=== PATIENT | female | born 1945 | race Caucasian/White ===

== ENCOUNTER 2017-12-31 23:06 | Inpatient (IN) | payer OTHER ==
[2017-12-31] MEDS ORDERED: PROPOFOL/EMULSION 1,000 MG/100 ML BOTTLE IV ONE (23:11)
[2017-12-31] MEDS ORDERED: fentaNYL 100 MCG/2 ML INJ ONE (23:17)
[2017-12-31 23:19] LABS: PLATELET COUNT 265 10^3/uL (150-400)
[2017-12-31] MEDS ORDERED: fentaNYL 100 MCG/2 ML INJ IVP ONE (23:19)
[2017-12-31] MEDS ORDERED: NS 1,000 ML IV ONE (23:20)
--- NOTE | 2017-12-31 23:20 | EDPHY ---
H & P Stated Complaint: respiratory distress Time Seen by Provider: 12/31/17 23:16 HPI/ROS: HPI The patient presents with Respiratory versus cardiac arrest. She was just in the car traveling from the [place] to [place] to visit family. She was complaining of shortness of breath and chest pain. She became dizzy when using the bathroom. According to the nurse, she initially had pulses upon arrival, then lost them and turned bluish in color. CPR was started immediately and patient was brought to high acuity room. Family reports a history of asthma for which she uses an inhaler. REVIEW OF SYSTEMS Unable to obtained given patient's mental status. PMHx: Asthma, uses an inhaler, also takes [place] [employer] Hx: Visiting her daughter from out of town FHx: PHYSICAL General Appearance: Unresponsive and pale Eyes: Pupils equal and round no pallor or injection ENT, Mouth: Mucous membranes moist Respiratory: Being bagged Cardiovascular: No peripheral pulses Gastrointestinal: Abdomen is soft with lower abdominal scar Neurological: Initially moving all extremities now obtunded Skin: Warm and dry, no rashes Musculoskeletal: Neck is supple non tender Extremities: symmetrical, no edema Source: Family Constitutional: Initial Vital Signs Heart Rate 80 12/31/17 23:08 Blood Pressure 186/119 H 12/31/17 23:08 O2 Delivery Mode Ventilator O2 (L/minute) 100 Allergies/Adverse Reactions: Unable to Assess Allergy (Unverified 12/31/17 23:21) Home Medications: Medication Instructions Recorded Albuterol [Ventolin Hfa Inhaler] 200 puffs IH 12/31/17 Fluticasone/Salmeter 250/50Mcg 1 puffs IH BID 01/01/18 [Advair 250/50 (*)] Tiotropium [place] [Spiriva 4 gm IH 01/01/18 Respimat] Tiotropium Inhaler [Spiriva 5 inh IH 01/01/18 Inhaler] Medical Decision Making - Diagnostics EKG Interpretation: EKG: Complete interpretation has been separately recorded in the [employer] archive. Summary impression: Sinus tachycardia, poor baseline though with slight ST segment elevations present in V3 and V4 Repeat EKG demonstrates ST elevations in V3 through V5 with deeply inverted T- waves Imaging Results: Imaging Impressions Chest X-Ray 12/31/17 23:12 Impression: 1. Endotracheal tube in good position. 2. Probable COPD/emphysema. Chest/Thorax CTA 12/31/17 23:15 Impression: 1. No visible pulmonary embolus. 2. Severe centrilobular emphysema with airways disease and mucous plugging. 3. Tiny left pneumothorax. 4. Nondisplaced sternal and rib fractures. 5. Endotracheal tube in good position. 6. Additional findings as above. Findings discussed with Sowmya Proctor MD 12/31/[address] 12/31/17 23:29 Impression: 1. No acute intracranial findings. If symptoms persist and clinical suspicion warrants, consider MRI. 2. Diffuse cerebral atrophy with periventricular and subcortical low attenuation consistent with chronic microvascular ischemic gliosis. Findings discussed with Sowmya Proctor MD 12/31/2017 at 2344. Imaging: Discussed imaging studies w/ para educator Radiologist, I viewed and interpreted images myself Procedures: INTUBATION Procedure: Rapid sequence intubation. Indication for the procedure was respiratory failure. The patient was preoxygenated with 100% oxygen by face mask. The patient was given the following IV medications: No medications were used as the patient is comatose. The patient was orally endotracheally intubated using the glide scope with a 7.5 ETT. In line stabilization was performed during the procedure. Tracheal intubation was confirmed with misting on the tube; breath sounds were auscultated equally bilaterally; appropriate color change with [place] End Tidal CO2 detector. Chest X-ray shows ETT in good position. The procedure was performed by myself. CENTRAL LINE WITH US GUIDANCE Procedure: Ultrasound guidance. Using the linear probe covered in a sterile sheath, a short axis of the vein was obtained. The vein was completely compressible and was identified as separate from the adjacent non-compressible arterial structure. Under real- time guidance, the introducer needle was observed up to the vein, and then punctured it. Indication: Cooling protocol. Risks, benefits, alternatives discussed with the patient's family including but not limited to bleeding, infection, vascular injury, and collapsed lung and consent obtained. A timeout was observed. Full maximal sterile barrier technique was used including cap, gown, sterile gloves, large sheet, hand washing and chlorhexidine prep. The area was anesthetized with 1% lidocaine. A triple-lumen Zoll catheter was placed in the right femoral vein using standard Seldinger technique. There were no complications. Blood return low pressure, dark blood. Patient tolerated procedure well. Pelvic x-ray results show that the tube is kinked at approximately 7 cm. Thus, catheter was pulled back approximately 7 cm, repeat x-ray shows normal positioning. . Xray was interpreted by myself. Radiologist interpretation is pending. The procedure was performed by myself. Differential Diagnosis: This is a 72-year-old female with history of asthma, recent long car ride to the area who presents with cardiopulmonary arrest upon arrival of the emergency department. In PEA, responding to CPR with ROSC within minutes. She was not given any epinephrine or other medications. She initially was hypertensive and tachycardic. Chest x-ray was performed after intubation showing hyperinflation only. I-STAT was performed showing normal creatinine in labs otherwise. She was taken quickly to the CT scanner where she had a CT scan of her lungs which did reveal rib fractures, sternal fracture, small pneumothorax with emphysematous changes, though without any pulmonary embolism. CT scan of her head was also unremarkable. The patient was brought back to the high acuity room EKG was performed, repeated since initial had a fair amount of artifact. This repeat EKG demonstrated ST segment elevations in the lateral leads. Because of this cardiology was consulted. Dr. Gross discussed the case with Dr. Kemp. Patient's troponin returned elevated. Decision was made to take the patient to the cardiac catheterization lab in the case that this was a cardiac arrest related to underlying ACS. Given her PEA. I placed a central line so that we could initiate hypothermia protocol. She was fairly awake while in the emergency department and required propofol for sedation, she seemed to be understanding our discussion with her about going to the labour market economist. She was moved all extremities and was fighting the vent at times. Her family was updated and she left from the emergency department to the labour market economist. I suspect she could have had a respiratory arrest, traveling to altitude with this history of COPD. I also cannot rule out ACS is cause of her arrest. Critical Care Time: CRITICAL CARE Critical care time spent by me, Dr. Proctor, exclusively with this patient was 100 minutes, exclusive of PA time and exclusive of procedures. The organ system at risk was neuro, cardiac, respiratory and I gave IV fluids, antibiotics , pressors, intubated the patient, placed a central line, gave continuous nebulized treatments, transfer the patient to the labour market economist to prevent worsening of the patients condition. - Data Points Laboratory Results: Laboratory Results 12/31/17 23:10 12/31/17 23:10 12/31/17 12/31/17 12/31/17 23:13 23:10 23:10 WBC RBC Hgb POC Hgb 15.6 gm/dL gm/dL (12.6-16.3) Hct POC Hct 46 % % (38-47) MCV MCH MCHC RDW Plt Count MPV Neut % (Auto) Lymph % (Auto) [place] % (Auto) Eos % (Auto) Baso % (Auto) Nucleat RBC Rel Count Absolute Neuts (auto) Absolute Lymphs (auto) Absolute Monos (auto) Absolute Eos (auto) Absolute Basos (auto) Absolute Nucleated RBC Immature Gran % Immature Gran # PT 14.0 SEC SEC (12.0-15.0) INR 1.06 (0.83-1.16) APTT 25.4 SEC SEC (23.0-38.0) Puncture Site Patient Temperature pCO2 pO2 Total CO2 ABG pH ABG HCO3 ABG O2 Saturation ABG Base Excess Total O2 Concentration Actual Respiration Rate Set Respiration Rate SIMV Tidal Volume PEEP Peak Inspir Pressure Pressure Support POC Sodium 140 mEq/L mEq/L (135-145) Sodium 139 mEq/L mEq/L (135-145) POC Potassium 4.4 mEq/L mEq/L (3.3-5.0) Potassium 5.0 mEq/L mEq/L (3.5-5.2) POC Chloride 99 mEq/L mEq/L (97-110) Chloride 98 mEq/L mEq/L (97-110) Carbon Dioxide 21 mEq/l L mEq/l (22-31) Anion Gap 20 mEq/L H mEq/L (8-16) POC BUN 13 mg/dL mg/dL (7-23) BUN 12 mg/dL mg/dL (7-23) Creatinine 0.7 mg/dL mg/dL (0.6-1.0) POC Creatinine 0.7 mg/dL mg/dL (0.6-1.0) Estimated GFR > 60 Glucose 173 mg/dL H mg/dL (70-100) POC Glucose 177 mg/dL H mg/dL (70-100) Calcium 9.5 mg/dL mg/dL (8.5-10.4) Phosphorus 6.7 mg/dL H mg/dL (2.5-4.5) Magnesium 2.4 mg/dL H mg/dL (1.6-2.3) Total Bilirubin 0.6 mg/dL mg/dL (0.1-1.4) AST 93 IU/L H IU/L (14-46) Lactate Dehydrogenase 635 IU/L H IU/L (313-618) Troponin I 0.935 ng/mL H ng/mL (0.000-0.034) Albumin 4.2 g/dL g/dL (3.5-5.0) Ethyl Alcohol 11 mg/dL H mg/dL (0-10) 12/31/17 12/31/17 23:10 00:10 WBC 11.03 10^3/uL H 10^3/uL (3.80-9.50) RBC 4.72 10^6/uL 10^6/uL (4.18-5.33) Hgb 15.0 g/dL g/dL (12.6-16.3) POC Hgb Hct 45.8 % % (38.0-47.0) POC Hct MCV 97.0 fL fL (81.5-99.8) MCH 31.8 pg pg (27.9-34.1) MCHC 32.8 g/dL g/dL (32.4-36.7) RDW 12.1 % % (11.5-15.2) Plt Count 265 10^3/uL 10^3/uL (150-400) MPV 9.9 fL fL (8.7-11.7) Neut % (Auto) 35.5 % L % (39.3-74.2) Lymph % (Auto) 50.9 % H % (15.0-45.0) [place] % (Auto) 8.6 % % (4.5-13.0) Eos % (Auto) 3.7 % % (0.6-7.6) Baso % (Auto) 0.8 % % (0.3-1.7) Nucleat RBC Rel Count 0.5 % H % (0.0-0.2) Absolute Neuts (auto) 3.92 10^3/uL 10^3/uL (1.70-6.50) Absolute Lymphs (auto) 5.61 10^3/uL H 10^3/uL (1.00-3.00) Absolute Monos (auto) 0.95 10^3/uL H 10^3/uL (0.30-0.80) Absolute Eos (auto) 0.41 10^3/uL H 10^3/uL (0.03-0.40) Absolute Basos (auto) 0.09 10^3/uL 10^3/uL (0.02-0.10) Absolute Nucleated RBC 0.05 10^3/uL H 10^3/uL (0-0.01) Immature Gran % 0.5 % % (0.0-1.1) Immature Gran # 0.05 10^3/uL 10^3/uL (0.00-0.10) PT INR APTT Puncture Site LEFT RADIAL Patient Temperature 37.0 DEGREES DEGREES pCO2 50 mmHg H mmHg (34-38) pO2 54 mmHg L mmHg (65-75) Total CO2 21 mEq/L L mEq/L (23-27) ABG pH 7.22 L (7.35-7.45) ABG HCO3 20 mEq/L L mEq/L (22-26) ABG O2 Saturation 77 % L % (92-95) ABG Base Excess -8.0 mEq/L L mEq/L (-2.5-2.5) Total O2 Concentration 60.0 LITERS LITERS Actual Respiration Rate 12 Set Respiration Rate 12 SIMV YES Tidal Volume 500 PEEP 5 Peak Inspir Pressure 35 Pressure Support 7 POC Sodium Sodium POC Potassium Potassium POC Chloride Chloride Carbon Dioxide Anion Gap POC BUN BUN Creatinine POC Creatinine Estimated GFR Glucose POC Glucose Calcium Phosphorus Magnesium Total Bilirubin AST Lactate Dehydrogenase Troponin I Albumin Ethyl Alcohol Medications Given: Propofol (Diprivan 10 Mg/Ml (Premix)) 100 mls @ 0 mls/hr IV CONT MERLENE; Per Protocol PRN Reason: Protocol Stop: 06/30/18 01:59 Last Admin: 01/01/18 04:21 Dose: 100 mls Vecuronium [place] 50 mg/ (Sodium Chloride) 50 mls @ 0 mls/hr IV CONT PRN; Protocol; As Directed PRN Reason: Shivering Stop: 06/30/18 03:52 Last Admin: 01/01/18 04:39 Dose: 50 mls Amiodarone HCl (Amiodarone Hcl) 200 mls @ 33.333 mls/hr IV ONCE ONE Stop: 01/01/18 08:59 Last Admin: 01/01/18 05:31 Dose: 200 mls Norepinephrine 4 mg/ Sodium (Chloride) 500 mls @ 0 mls/hr IV CONT MERLENE; Titrate PRN Reason: Protocol Stop: 06/30/18 06:29 Last Admin: 01/01/18 06:36 Dose: 500 mls Magnesium Sulfate/Dextrose (Magnesium Sulf 1 Gm (Premix)) 100 mls @ 100 mls/hr IV ONCE ONE Stop: 01/01/18 07:30 Last Admin: 01/01/18 06:41 Dose: 100 mls Methylprednisolone Sodium Succinate (Solu-Medrol) 125 mg IVP Q6HRS MERLENE Stop: 06/30/18 05:59 Last Admin: 01/01/18 06:22 Dose: 125 mg Discontinued Medications Albuterol/Ipratropium (Duoneb) 3 ml IH EDNOW ONE Stop: 12/31/17 23:57 Last Admin: 01/01/18 01:05 Dose: 3 ml Aspirin Buffered (Aspirin Ec) 325 mg PO ONCALL ONE Stop: 01/01/18 01:34 Last Admin: 01/01/18 04:22 Dose: Not Given Diazepam (Valium) 5 mg PO ONCALL ONE Stop: 01/01/18 01:34 Last Admin: 01/01/18 04:22 Dose: Not Given Diphenhydramine HCl (Benadryl) 25 mg PO ONCALL ONE Stop: 01/01/18 01:34 Last Admin: 01/01/18 04:43 Dose: Not Given Famotidine (Pepcid) 20 mg PO ONCALL ONE Stop: 01/01/18 01:34 Last Admin: 01/01/18 04:43 Dose: Not Given Fentanyl (Sublimaze) 100 mcg IVP EDNOW ONE Stop: 12/31/17 23:20 Last Admin: 12/31/17 23:20 Dose: 100 mcg Fentanyl (Sublimaze) 100 mcg IVP EDNOW ONE Stop: 01/01/18 00:36 Last Admin: 01/01/18 00:35 Dose: 100 mcg Fentanyl (Sublimaze) 100 mcg IVP EDNOW ONE Stop: 01/01/18 00:51 Last Admin: 01/01/18 00:50 Dose: 100 mcg Propofol (Diprivan 10 Mg/Ml (Premix)) 100 mls @ 0 mls/hr IV CONT MERLENE; Titrate PRN Reason: Protocol Stop: 06/29/18 23:29 Last Admin: 12/31/17 23:20 Dose: 100 mls Levofloxacin/Dextrose (Levaquin 750 Mg (Premix)) 150 mls @ 100 mls/hr IV EDNOW ONE PRN Reason: Protocol Stop: 01/01/18 01:25 Last Admin: 01/01/18 00:30 Dose: 150 mls Dopamine HCl/Dextrose (Dopamine 1600 Mcg/Ml (Premix)) 250 mls @ 0 mls/hr IV CONT MERLENE; Titrate PRN Reason: Protocol Stop: 06/30/18 01:29 Last Admin: 01/01/18 01:15 Dose: 250 mls Sodium Chloride (Ns) 1,000 mls @ 0 mls/hr IV ONCE ONE PRN Reason: Wide Open Stop: 12/31/17 23:21 Last Admin: 01/01/18 04:21 Dose: 1,000 mls Sodium Chloride (Ns) 1,000 mls @ 0 mls/hr IV ONCE ONE PRN Reason: Wide Open Stop: 01/01/18 00:51 Last Admin: 01/01/18 04:22 Dose: Not Given Amiodarone HCl (Amiodarone Hcl) 200 mls @ 0 mls/hr IV ONCALL ONE; As Directed PRN Reason: Protocol Stop: 01/01/18 02:46 Last Admin: 01/01/18 04:44 Dose: Not Given Sodium Chloride (Ns) 500 mls @ 0 mls/hr IV ONCE ONE PRN Reason: Wide Open Stop: 01/01/18 06:14 Last Admin: 01/01/18 06:29 Dose: Not Given Methylprednisolone Sodium Succinate (Solu-Medrol) 125 mg IVP EDNOW ONE Stop: 12/31/17 23:57 Last Admin: 01/01/18 00:30 Dose: 125 mg Point of Care Test Results: 12/31/17 23:13 POC Sodium 140 POC Potassium 4.4 POC Chloride 99 POC BUN 13 POC Creatinine 0.7 POC Glucose 177 H Departure - Departure Disposition: [facility] Acute Clinical Impression: Cardiopulmonary arrest, Elevated troponin Rib fracture Qualifiers: Encounter type: initial encounter Rib fracture type: multiple ribs Fracture type: closed Laterality: unspecified laterality Qualified Code(s): S22.49XA - Multiple fractures of ribs, unspecified side, initial encounter for closed fracture Sternal fracture Qualifiers: Encounter type: initial encounter Sternal location: unspecified Fracture type: closed Qualified Code(s): S22.20XA - Unspecified fracture of sternum, initial encounter for closed fracture COPD (chronic obstructive pulmonary disease) Qualifiers: COPD type: unspecified COPD Qualified Code(s): J44.9 - Chronic obstructive pulmonary disease, unspecified Condition: Critical
[2017-12-31 23:28] LABS: INR 1.06 (0.83-1.16)
[2017-12-31] MEDS ORDERED: IOPAMIDOL (ISOVUE 370) 100 ML BTL IV ONE (23:28)
[2017-12-31] MEDS ORDERED: PROPOFOL/EMULSION 100 ML IV SCH (23:30)
[2017-12-31] MEDS ORDERED: IPRATROPIUM/ALBUTEROL 3 ML DEYVIAL IH ONE (23:56)
[2017-12-31] MEDS ORDERED: methylPREDNISolone SOD SUCC 125 MG/2 ML VIAL IVP ONE (23:56)
--- NOTE | 2017-12-31 23:58 | CPEKG ---
Heart Rate: 85 RR Interval: 706 P-R Interval: 164 QRSD Interval: 86 QT Interval: 472 QTC Interval: 562 P Dequincy: 85 QRS Dequincy: 94 T Wave Dequincy: 246 EKG Severity - ABNORMAL ECG - EKG Impression: SINUS RHYTHM EKG Impression: PROBABLE LEFT ATRIAL ABNORMALITY EKG Impression: PROBABLE ANTERIOR INFARCT, RECENT EKG Impression: BORDERLINE T ABNORMALITIES, INFERIOR LEADS EKG Impression: PROLONGED QT INTERVAL Electronically Signed By: Sowmya Proctor 01-Jan-2018 07:10:56
[2018-01-01] MEDS ORDERED: fentaNYL 100 MCG/2 ML INJ IVP ONE ×2 (00:35→00:50)
[2018-01-01] MEDS ORDERED: NS 1,000 ML IV ONE (00:50)
[2018-01-01] MEDS ORDERED: DOPamine/DEXTROSE/250 ML BAG IV ONE (00:58)
--- NOTE | 2018-01-01 01:00 | CPEKG ---
Heart Rate: 77 RR Interval: 779 P-R Interval: 168 QRSD Interval: 82 QT Interval: 468 QTC Interval: 530 P Sab[place]: 84 QRS [place]: 90 T Wave [place]: 206 EKG Severity - ABNORMAL ECG - EKG Impression: SINUS RHYTHM EKG Impression: ABERRANT COMPLEX, POSSIBLY SUPRAVENTRICULAR EKG Impression: BORDERLINE RIGHT AXIS DEVIATION EKG Impression: CONSIDER ANTERIOR INFARCT EKG Impression: NONSPECIFIC T ABNORMALITIES, LATERAL LEADS EKG Impression: ST ELEVATION SUGGESTS PERICARDITIS EKG Impression: PROLONGED QT INTERVAL Electronically Signed By: Sowmya Proctor 01-Jan-2018 07:10:49
[2018-01-01] MEDS ORDERED: DIAZEPAM 5 MG TAB PO ONE (01:33)
[2018-01-01] MEDS ORDERED: FAMOTIDINE 20 MG TAB PO ONE (01:33)
[2018-01-01] MEDS ORDERED: TEMAZEPAM 15 MG CAP PO PRN (01:33)
[2018-01-01] MEDS ORDERED: ACETAMINOPHEN 325 MG TAB PO PRN (01:33)
[2018-01-01] MEDS ORDERED: ASPIRIN EC 325 MG TAB PO ONE (01:33)
[2018-01-01] MEDS ORDERED: NITROGLYCERIN 0.4 MG BTL SL PRN (01:33)
[2018-01-01] MEDS ORDERED: diphenhydrAMINE 25 MG CAP PO ONE (01:33)
[2018-01-01] MEDS ORDERED: fentaNYL 100 MCG/2 ML INJ ONE ×2 (01:35→01:37)
[2018-01-01] MEDS ORDERED: LORazepam 2 MG/ML INJ IVP PRN (01:36)
[2018-01-01] MEDS ORDERED: LIDOCAINE 1% 300 MG/30 ML SDV ONE (01:36)
[2018-01-01] MEDS ORDERED: MIDAZOLAM 2 MG/2 ML VIAL ONE (01:37)
[2018-01-01] MEDS ORDERED: IOPAMIDOL (ISOVUE-370) 150 ML BTL IV ONE (01:37)
--- NOTE | 2018-01-01 01:52 | PDGENHP ---
History and Physical - Chief Complaint Cardiac arrest - History of Present Illness 72 yo F w/ unclear PMHx experienced a cardiac arrest shortly after arriving at our ED. She was intubated and ROSC was obtained after only a few minutes of CPR. Per family, patient had recently been on a 2 day car ride from [place]. They arrived last night and she described feeling short of breath and wheezy. This improved after nebulizer treatments and she felt better. Family states she was speaking in full sentences and slept well. Then, today the patient felt worse and said she was "having another episode". Per family, patient was gasping for air, turned a ellis color, and was unable to speak in full sentences. On the car ride over she also began to complain of chest pain. As described previously, PEa was noted shortly after arrival. Family states she is guarded with her medical history and do not know much aside from the fact that she is a long time smoker. CTPE obtained showed emphysema but no PE. Initial ECG notable for EVERTON's in V3-V5; troponin 0.9. Patient is being taken to veterinarian laboratory animal care for urgent evaluation. History Information - Allergies/Home Medication List Allergies/Adverse Reactions: Unable to Assess Allergy (Unverified 12/31/17 23:21) Home Medications: Albuterol [Ventolin Hfa Inhaler] 200 puffs IH 12/31/17 [Last Taken Unknown] I have personally reviewed and updated: family history, medical history - Past Medical History COPD - Surgical History Additional surgical history: Asked, unknown - Family History Additional family history: Unable to obtain 2/2 mental status - Social History Smoking Status: Former smoker Review of Systems Review of Systems: Unable to obtain 2/2 mental status Physical Exam Physical Exam: Temp Pulse Resp BP Pulse Ox 88 12 88/59 L 100 01/01/18 01:08 01/01/18 01:08 01/01/18 01:08 01/01/18 01:08 Constitutional: appears nourished, other (Intubated, sedated) Eyes: PERRL, other (Constricted pupils) Ears, Nose, Mouth, Throat: moist mucous membranes, no oral mucosal ulcers Cardiovascular: regular rate and rhythym, no murmur, rub, or gallop Respiratory: other (Mechanical breath sounds, bilateral breath sounds) Gastrointestinal: normoactive bowel sounds, No distension Skin: warm, normal color Neurologic: other (Intubated, sedated) Lab Data & Imaging Review 12/31/17 23:10 12/31/17 23:10 WBC 11.03 10^3/uL (3.80-9.50) H 12/31/17 23:10 RBC 4.72 10^6/uL (4.18-5.33) 12/31/17 23:10 Hgb 15.0 g/dL (12.6-16.3) 12/31/17 23:10 POC Hgb 15.6 gm/dL (12.6-16.3) 12/31/17 23:13 Hct 45.8 % (38.0-47.0) 12/31/17 23:10 POC Hct 46 % (38-47) 12/31/17 23:13 MCV 97.0 fL (81.5-99.8) 12/31/17 23:10 MCH 31.8 pg (27.9-34.1) 12/31/17 23:10 MCHC 32.8 g/dL (32.4-36.7) 12/31/17 23:10 RDW 12.1 % (11.5-15.2) 12/31/17 23:10 Plt Count 265 10^3/uL (150-400) 12/31/17 23:10 MPV 9.9 fL (8.7-11.7) 12/31/17 23:10 Neut % (Auto) 35.5 % (39.3-74.2) L 12/31/17 23:10 Lymph % (Auto) 50.9 % (15.0-45.0) H 12/31/17 23:10 [place] % (Auto) 8.6 % (4.5-13.0) 12/31/17 23:10 Eos % (Auto) 3.7 % (0.6-7.6) 12/31/17 23:10 Baso % (Auto) 0.8 % (0.3-1.7) 12/31/17 23:10 Nucleat RBC Rel Count 0.5 % (0.0-0.2) H 12/31/17 23:10 Absolute Neuts (auto) 3.92 10^3/uL (1.70-6.50) 12/31/17 23:10 Absolute Lymphs (auto) 5.61 10^3/uL (1.00-3.00) H 12/31/17 23:10 Absolute Monos (auto) 0.95 10^3/uL (0.30-0.80) H 12/31/17 23:10 Absolute Eos (auto) 0.41 10^3/uL (0.03-0.40) H 12/31/17 23:10 Absolute Basos (auto) 0.09 10^3/uL (0.02-0.10) 12/31/17 23:10 Absolute Nucleated RBC 0.05 10^3/uL (0-0.01) H 12/31/17 23:10 Immature Gran % 0.5 % (0.0-1.1) 12/31/17 23:10 Immature Gran # 0.05 10^3/uL (0.00-0.10) 12/31/17 23:10 PT 14.0 SEC (12.0-15.0) 12/31/17 23:10 INR 1.06 (0.83-1.16) 12/31/17 23:10 APTT 25.4 SEC (23.0-38.0) 12/31/17 23:10 Puncture Site LEFT RADIAL 12/31/17 00:10 Patient Temperature 37.0 DEGREES 12/31/17 00:10 pCO2 50 mmHg (34-38) H 12/31/17 00:10 pO2 54 mmHg (65-75) L 12/31/17 00:10 Total CO2 21 mEq/L (23-27) L 12/31/17 00:10 ABG pH 7.22 (7.35-7.45) L 12/31/17 00:10 ABG HCO3 20 mEq/L (22-26) L 12/31/17 00:10 ABG O2 Saturation 77 % (92-95) L 12/31/17 00:10 ABG Base Excess -8.0 mEq/L (-2.5-2.5) L 12/31/17 00:10 Total O2 Concentration 60.0 LITERS 12/31/17 00:10 Actual Respiration Rate 12 12/31/17 00:10 Set Respiration Rate 12 12/31/17 00:10 SIMV YES 12/31/17 00:10 Tidal Volume 500 12/31/17 00:10 PEEP 5 12/31/17 00:10 Peak Inspir Pressure 35 12/31/17 00:10 Pressure Support 7 12/31/17 00:10 POC Sodium 140 mEq/L (135-145) 12/31/17 23:13 Sodium 139 mEq/L (135-145) 12/31/17 23:10 POC Potassium 4.4 mEq/L (3.3-5.0) 12/31/17 23:13 Potassium 5.0 mEq/L (3.5-5.2) 12/31/17 23:10 POC Chloride 99 mEq/L (97-110) 12/31/17 23:13 Chloride 98 mEq/L (97-110) 12/31/17 23:10 Carbon Dioxide 21 mEq/l (22-31) L 12/31/17 23:10 Anion Gap 20 mEq/L (8-16) H 12/31/17 23:10 POC BUN 13 mg/dL (7-23) 12/31/17 23:13 BUN 12 mg/dL (7-23) 12/31/17 23:10 Creatinine 0.7 mg/dL (0.6-1.0) 12/31/17 23:10 POC Creatinine 0.7 mg/dL (0.6-1.0) 12/31/17 23:13 Estimated GFR > 60 12/31/17 23:10 Glucose 173 mg/dL (70-100) H 12/31/17 23:10 POC Glucose 177 mg/dL (70-100) H 12/31/17 23:13 Calcium 9.5 mg/dL (8.5-10.4) 12/31/17 23:10 Phosphorus 6.7 mg/dL (2.5-4.5) H 12/31/17 23:10 Magnesium 2.4 mg/dL (1.6-2.3) H 12/31/17 23:10 Total Bilirubin 0.6 mg/dL (0.1-1.4) 12/31/17 23:10 AST 93 IU/L (14-46) H 12/31/17 23:10 Lactate Dehydrogenase 635 IU/L (313-618) H 12/31/17 23:10 Troponin I 0.935 ng/mL (0.000-0.034) H 12/31/17 23:10 Albumin 4.2 g/dL (3.5-5.0) 12/31/17 23:10 Ethyl Alcohol 11 mg/dL (0-10) H 12/31/17 23:10 Imaging Review: Imaging Impressions Chest X-Ray 12/31/17 23:12 Impression: 1. Endotracheal tube in good position. 2. Probable COPD/emphysema. Chest/Thorax CTA 12/31/17 23:15 Impression: 1. No visible pulmonary embolus. 2. Severe centrilobular emphysema with airways disease and mucous plugging. 3. Tiny left pneumothorax. 4. Nondisplaced sternal and rib fractures. 5. Endotracheal tube in good position. 6. Additional findings as above. Findings discussed with Sowmya Proctor MD 12/31/[address] 12/31/17 23:29 Impression: 1. No acute intracranial findings. If symptoms persist and clinical suspicion warrants, consider MRI. 2. Diffuse cerebral atrophy with periventricular and subcortical low attenuation consistent with chronic microvascular ischemic gliosis. Findings discussed with Sowmya Proctor MD 12/31/2017 at 2344. Assessment & Plan Assessment: 72 yo F w/ COPD presents with cardiac arrest. Plan: 1. Cardiac arrest - From the family's story and initial ABG, it seems clear that hypoxia was playing a driving role, most likely from a COPD exacerbation. It is unclear if this led to a cardiac event as well noting abnormal ECG and elevated troponin; rhythm during arrest was PEA. Patient arrested shortly after arriving in the ED and ROSC was obtained within just a few minutes, which is encouraging in terms of the possibility of anoxic brain injury. CTPE was negative for PE. - landscape laborer activated for cardiac evaluation - TTE ordered - Monitor on telemetry, trend cardiac enzymes - Admit to ICU - Cooling protocol initiated 2. COPD with suspected exacerbation - Per family, patient was complaining of wheezing and SOB for the past 2 days. Medical history is unclear but daughter states she has a long smoking history and is an active smoker. CT revealed severe centrilobular emphysema with airways disease and mucous plugging. - Currently intubated - Will treat with methylprednisone 125 mg q6h + Duonebs QID 3. Tiny left pneumothorax - Will repeat CXR in the morning to monitor size. 4. Nondisplaced sternal and rib fractures - As a result of CPR, consider trauma consult after further stabilized. Diet - NPO Ppx - LMWH, PPI Code - Full I personally spent 60 minutes of critical care time evaluating patient, interpreting data, coordinating care, and discussing case with present family.
[2018-01-01] MEDS ORDERED: EPINEPHrine 1 MG/10 ML SYR IVP ONE (02:06)
[2018-01-01] MEDS ORDERED: BIVALIRUDIN 250 MG/5 ML VIAL IV ONE (02:18)
[2018-01-01] MEDS ORDERED: CLOPIDOGREL BISULFATE 75 MG TAB ONE (02:21)
--- NOTE | 2018-01-01 02:26 | CPEKG ---
Heart Rate: 133 RR Interval: 451 P-R Interval: 116 QRSD Interval: 106 QT Interval: 316 QTC Interval: 471 P Vance: 85 QRS Vance: -80 T Wave Vance: 84 EKG Severity - ABNORMAL ECG - EKG Impression: SINUS TACHYCARDIA EKG Impression: RUN OF VENTRICULAR PREMATURE COMPLEXES EKG Impression: INCOMPLETE RIGHT BUNDLE BRANCH BLOCK EKG Impression: INFERIOR INFARCT, ACUTE EKG Impression: ANTEROLATERAL INFARCT, ACUTE Electronically Signed By: Sowmya Proctor 01-Jan-2018 07:11:03
[2018-01-01] MEDS ORDERED: NITROGLYCERIN 1,500 MCG/15 ML VIAL MISC ONE (02:28)
[2018-01-01] MEDS ORDERED: PHENYLEPHRINE HCL 100 MCG/ML SYR ONE (02:36)
[2018-01-01] MEDS ORDERED: AMIODARONE 360 MG/200 ML IV ONE (02:45)
[2018-01-01] MEDS ORDERED: AMIODARONE HCL 150 MG/3 ML VIAL ONE (03:00)
[2018-01-01] MEDS ORDERED: AMIODARONE HCL 200 ML IV ONE (03:00)
--- NOTE | 2018-01-01 03:02 | GCON ---
[f rep st] CONSULTATION DATE OF CONSULTATION: 01/01/2018 CHIEF COMPLAINT: Cardiac arrest. HISTORY OF PRESENT ILLNESS: This is a -wmab-bxl female who apparently was driving from the [place] to [place] to visit family. The patient had been complaining apparently of shortness of br eath over the last 24 hours. Apparently she was in severe respiratory distress when she arrived to [facility] emergency room and turned immediately into a cardiac arrest. CPR was initiated and the patient wa s and intubated and sedated. The patient was started on a cooling protocol as well accord ing to the hospitalist. The patient had an EKG which showed dynamic ST changes in V3 and V4. Upon i ntubation and sedation, the EKG was repeated, which showed somewhat resolution of these EKG changes. However, there was still mild elevation in V3, V4. Given these findings, cardiac alert was called. The patient is currently somewhat hypotensive and maintained on dopamine, thought secondary to propo fol infusion. Heart rate is stable, sinus rhythm at 70. PAST MEDICAL HISTORY: Significant for apparently asthma. HOME MEDICATIONS: Consist of inhaler. FAMILY HISTORY: Noncontributory at this point. SOCIAL HISTORY: Unknown. REVIEW OF SYSTEMS: Unobtainable secondary to the patient's underlying clinical status and being intu bated, sedated. PHYSICAL EXAMINATION: Patient is afebrile at 96. Blood pressure is currently 70/50 on dopamine. He art rate of 72, respirations 12, on a ventilator. HEENT: Pupils are sluggish. CARDIOVASCULAR: Reg ular rate and rhythm. S1, S2. There are no murmurs auscultated. LUNGS: Decreased breath sounds th roughout. ABDOMEN: Soft, nontender. No guarding. EXTREMITIES: No clubbing. No cyanosis. No iman ma. NEUROLOGIC: The patient is sedated, intubated. LABORATORY VALUES: Currently show a white cell count of 11,000, hemoglobin 15, hematocrit 45, platel et count of 265. Sodium 139, potassium 5.0, chloride 98, bicarb 21, BUN 12, creatinine 0.7. Troponi n of 0.9. Chest CT shows no PE, severe centrilobular emphysema with airway disease and mucous plugging, tiny le ft pneumothorax, nondisplaced sternal rib fractures, and atherosclerosis in the LAD. ASSESSMENT/PLAN: Cardiac arrest. At this time, given the fact that the patient did have some elevat ed troponin as well as dynamic ST changes in V3 and V4, the patient was taken to cardiac catheterizat ion for further evaluation. Further orders following clinical correlation. /[id number]/MODL
--- NOTE | 2018-01-01 03:37 | CPIP ---
[f rep st] INVASIVE CARDIAC PROCEDURE DATE OF PROCEDURE: 01/01/2018 INDICATION FOR PROCEDURE: Cardiac arrest. PROCEDURE: 1. Nonselective left groin sheathogram. 2. Bilateral selective coronary angiography. 3. Left heart catheterization. 4. Left ventriculogram. 5. Percutaneous intervention of mid right coronary artery utilizing Synergy 2.75 x 20 mm stent. HISTORY: Briefly this is a 72-year-old female who presented to the emergency room in acute respirato ry distress. The patient underwent respiratory arrest and was intubated. The patient was found to h ave ST elevations in V3, V4. Given these findings, the patient was taken for emergent cardiac cathet erization lab. After implied consent, the patient was taken to the cardiac catheterization lab. DESCRIPTION OF PROCEDURE: The left groin was prepped and draped in sterile fashion. Using lidocaine , a short 6 Russian sheath placed in the left femoral artery, verified angiographically. Through the 6 Russian sheath, a JR4 catheter was advanced to the right coronary artery. Images of the right coron ce artery revealed proximal narrowing of the vessel most likely from spasm. In the mid RCA, there w as a focal 70% lesion. Distally the RPD and LPS had mild plaque disease but were widely patent. Aft er these images were obtained, the JR4 catheter was removed. A JL4 catheter was advanced in the left coronary artery. Images of the left coronary artery revealed long left main. The left circumflex a rtery had 30% to 40% proximal disease that was a terminating to marginal 1 and 2 arteries, which had mild plaque disease. The LAD had mild 30% to 40% disease throughout its course. The LAD gave off a medium diagonal artery in its midbody, which had 50% to 60% disease proximally. After these images w ere obtained, the JL4 catheter was removed. A pigtail catheter was advanced to the left ventricle. LVEDP was 22 mmHg. Left ventriculogram in CELESTE projection showed EF of 55% with no wall motion abnorm alities. No pullback gradient between LV and aorta. INTERVENTION REPORT: At this time, the patient was administered 600 mg of Plavix through her NG tube and started on Angiomax bolus and drip. A JR4 6 Russian guide catheter with side holes was then adva nced to the right coronary artery. The lesion in the mid RCA was again reestablished. A Choice PT w steven was placed down to the RPDA. A 2.5 x 12 balloon was then advanced to the mid RCA where inflation was performed at 12 atmospheres. After this was performed, the patient was noted to have a change i n rhythm and went into what appeared to be VT. The patient was cardioverted successfully at 200 joul es. This was followed by sinus rhythm which immediately was followed by 1 additional run of VT, whmaximo h was then cardioverted at 300 joules. Angiographic images were obtained, which showed what appeared to be significant proximal spasming of the vessel. The patient was immediately administered 200 mcg of nitroglycerin IC, which relieved the spasm. Once this was administered, we then proceeded with i mmediate placement of a stent in the mid RCA with a 2.75 x 20 mm Synergy drug-eluting stent. This wa s deployed successfully at 16 atmospheres. After deployment, angiogram was obtained which showed exc ellent patency of the stented area with now complete plumping of the proximal RCA, indicating this wa s most likely a spasm issue. This was verified in orthogonal views. Of note, the patient after the 2nd cardioversion did go into what appeared to be atrial fibrillation, controlled rate. Amiodarone d rip was started. The patient was maintained on her dopamine drip, which was started in the emergency room. At this time, the wire was removed. The guide catheter was removed. The 0.035 wire in the l eft groin was sutured in place. Patient tolerated the procedure well with no further issues. IMPRESSION: 1. Successful percutaneous coronary intervention of high-grade mid right coronary artery lesion util izing Synergy 2.75 x 16 mm drug-eluting stent, complicated by 2 episodes of ventricular tachycardia, successfully cardioverted. The patient is now in rate controlled atrial fibrillation. 2. Moderate disease of the diagonal 1 artery. 3. Mild disease of the left anterior descending and left circumflex system. 4. Normal ejection fraction 50% to 55%. PLAN: The patient will be maintained on the ventilator and extubated per pulmonology/hospitalist. T he patient will remain on Plavix 75 p.o. daily as well as baby aspirin. If the patient remains in at rial fibrillation despite the amiodarone, consider anticoagulation therapy within the next 24 hours. /[id number]/MODL
[2018-01-01] MEDS ORDERED: PROTOCOL MAGNESIUM 1 DOSE IV PRN (04:18)
[2018-01-01] MEDS ORDERED: PROTOCOL POTASSIUM 1 DOSE MISC PRN (04:18)
[2018-01-01] MEDS: PROPOFOL/EMULSION 100 ML IV SCH ×2 (04:21→17:30)
[2018-01-01 04:30] LABS: PLATELET COUNT 257 10^3/uL (150-400)
[2018-01-01] MEDS: VECURONIUM BROMIDE 50 MG in NS 50 ML IV PRN ×2 (04:39→11:46)
[2018-01-01 04:40] LABS: INR 3.4 (0.83-1.16); PROTIME(PATIENT) 34.1 SEC (12.0-15.0)
[2018-01-01] MEDS ORDERED: methylPREDNISolone SOD SUCC 125 MG/2 ML VIAL IVP SCH (06:00)
[2018-01-01] MEDS ORDERED: IPRATROPIUM/ALBUTEROL 3 ML DEYVIAL IH SCH ×2 (06:00→12:00)
[2018-01-01] MEDS ORDERED: NS 500 ML IV ONE (06:13)
[2018-01-01] MEDS ORDERED: NOREPINEPHRINE/NS 500 ML IV SCH (06:30)
[2018-01-01] MEDS ORDERED: MAGNESIUM SULF 1 GM/DEXTROSE 100 ML IV ONE (06:31)
[2018-01-01] MEDS: NOREPINEPHRINE BITARTRATE 4 MG in NS 500 ML IV SCH ×2 (06:36→20:44)
[2018-01-01] MEDS ORDERED: MAGNESIUM SULF 1 GM/DEXTROSE 100 ML BAG IV ONE (06:39)
[2018-01-01] MEDS ORDERED: D5W 1,000 ML IV SCH (06:45)
[2018-01-01] MEDS ORDERED: INSULIN REGULAR HUMAN 100 UNIT in NS 100 ML IV SCH (07:00)
[2018-01-01] MEDS ORDERED: ALBUTEROL 60 PUFFS/8 GM MDI IH SCH ×2 (08:00→12:00)
--- NOTE | 2018-01-01 08:16 | PDMN ---
Medical Necessity Medical necessity: Pt meets IP criteria per MD; est los >2 mn for eval/tx of cardiac arrest, COPD w/suspected exacerbation, L pneumothorax, nondisplaced sternal rib fxs; pt intubated; admit to ICU for further workup/close monitoring , Cardiology/Trauma consults, cardiac cath & IV med managament; hx COPD; per H& P & order 01/01/18
--- NOTE | 2018-01-01 08:51 | CPEKG ---
Heart Rate: 93 RR Interval: 645 P-R Interval: 166 QRSD Interval: 98 QT Interval: 313 QTC Interval: 390 P [place]: 35 QRS [place]: 93 T Wave [place]: 28 EKG Severity - ABNORMAL ECG - EKG Impression: SINUS RHYTHM EKG Impression: Acute anterolateral infarct Electronically Signed By: Sunil Han 04-Jan-2018 06:56:10
[2018-01-01] MEDS ORDERED: AMIODARONE IV ONE (09:00)
[2018-01-01] MEDS ORDERED: [UNRECOGNIZED DRUG - OTHER] IV ONE (09:00)
[2018-01-01] MEDS ORDERED: ENOXAPARIN 40 MG/0.4 ML SYR SC SCH (09:00)
--- NOTE | 2018-01-01 09:24 | ECHO ---
[email or web address] [address] [address] Main: [phone] Fax: Transthoracic Echocardiogram Name: EZIO BRIAN MR#: [id number] Study Date: 01/01/2018 Study Time: 07:33 AM Date of : 1945 Age: 72 year(s) Height: ( ) Weight: ( ) BSA: Gender: Female Examination: Echo Indication: Post Cardiac Arrest, CPR Image Quality: Contrast: Requested by: Topher Hayward BP: 120 mmHg/89 mmHg Heart Rate: Rhythm: Atrial fibrillation Indication: Post Cardiac Arrest, CPR Procedure Staff Pesticide Applicator: Mao Sullivan RDCS Reading Physician: Minh Kemp MD Requesting Provider: Conclusions: The ejection fraction is estimated to be 30-35 %. There is mid anteroseptal, apical to mid inferolateral hypokinesis. The EF is estimated at 35%. Mildly reduced RV function. There is no mitral valve regurgitation. There is no aortic valve regurgitation. Mild tricuspid regurgitation is present. The pulmonary artery pressure is mildly increased. Pulmonary artery pressure approximately 40 mmHg. Small pericardial effusion. No echocardiographic evidence of hemodynamic compromise. Measurements: Chambers Valvular Assessment AV/MV Valvular Assessment TV/PV Normal Normal Normal Name Value Range Name Value Range Name Value Range Ao Jayne (MM): 2.7 cm (2.2 cm-3.7 MV E Vmax: 0.81 m/s ( - ) TR Vmax: 2.86 mm/s ( - ) cm) TR PGmax: 33 mmHg ( - ) IVSd (2D): 0.7 cm (0.6 cm-1.1 syst. PAP: 38 mmHg ( - ) cm) PV Vmax: 0.60 m/s (0.6 m/s-0.9 LVDd (2D): 3.1 cm (3.9 cm-5.3 m/s) cm) PV PGmax: 1 mmHg ( - ) LVDs (2D): 2.7 cm (2.1 cm-4 cm) LVPWd (2D): 0.9 cm ( - ) LVEF (BP): 35 % (>=55 %) EF Range: 30-35 % Continued Measurements: Valvular Assessment AV/MV Valvular Assessment TV/PV Patient: EZIO BRIAN Study Date: 01/01/2018 Page 1 of 2 07:33 AM Name Value Name Value MV E' Septal: 0.05 m/s CVP (est.): 5 mmHg MV E/E' Septal: 16.30 MV E/E' Lateral: 18.90 Findings: Left Ventricle: Normal size left ventricle. No LV hypertrophy. The ejection fraction is estimated to be 30-35 %. There is mid anteroseptal, apical to mid inferolateral hypokinesis. The EF is estimated at 35%. Right Ventricle: Normal size right ventricle. Mildly reduced RV function. Left Atrium: The left atrium is normal in size. Right Atrium: The right atrium is normal in size. Mitral Valve: The mitral valve is normal in appearance and function. There is no mitral valve regurgitation. Aortic Valve: The aortic valve is tri-leaflet and functions normally. There is no aortic valve regurgitation. Tricuspid Valve: The tricuspid valve appears normal. Mild tricuspid regurgitation is present. The pulmonary artery pressure is mildly increased. Pulmonary artery pressure approximately 40 mmHg. Pulmonic Valve: The pulmonic valve is normal in appearance and function. Aorta: The aorta is normal. Pericardium: Small pericardial effusion. No echocardiographic evidence of hemodynamic compromise. Exam Comments: (No Signature Object) Patient: EZIO BRIAN Study Date: 01/01/2018 Page 2 of 2 07:33 AM D:_[id number]
--- NOTE | 2018-01-01 09:24 | ASMTCMCOM ---
CM Note CM Note Notes: 72yr old female admitted for Cardiac arrest, COPD exacerbation, rib fx and sternum fx. She has a Hx of smoking, COPD. Patient is presently vented. CM to follow for possible discharge needs. Date Signed: 01/01/2018 09:23 AM Electronically Signed By:Lauren Chaney LCSW
[2018-01-01] MEDS ORDERED: FAMOTIDINE 20 MG/NACL 50 ML IV SCH (10:45)
[2018-01-01] MEDS ORDERED: POTASSIUM Cl (KCl) 50 ML IV SCH (11:07)
[2018-01-01] MEDS ORDERED: POTASSIUM Cl (KCl) 50 ML IV ONE (11:15)
[2018-01-01] MEDS ORDERED: POTASSIUM Cl (KCl) 10 MEQ in D5W 50 ML IV ONE (11:15)
[2018-01-01] MEDS ORDERED: ACETAMINOPHEN 325 MG TAB TUBE PRN (11:30)
--- NOTE | 2018-01-01 11:38 | GCON ---
[f rep st] CONSULTATION CRITICAL CARE CONSULT DATE OF CONSULTATION: 01/01/2018 HISTORY OF PRESENT ILLNESS: This patient is a 72-year-old female whose past medical history is large ly unknown. She apparently was driving from [place] to [place] recently, complained of some short ness of breath and chest pain. Was brought to the emergency department, where she became suddenly cy anotic and had a PEA arrest. According to the emergency department notes, CPR was initiated instantl y, and return of spontaneous circulation returned "within minutes." No medications were required. S he was intubated at the time and apparently was conscious enough, despite those events, to follow com mands in the emergency department while her workup was undertaken. Among those problems, she was fou nd to have an ST-elevation myocardial infarction, was taken emergently to the electroplating laborer where she was found to have a 70% mid RCA lesion and 50% to 60% stenosis of the diagonal branch. She received a st ent in the RCA and was placed on Plavix. In the electroplating laborer, she also had 2 pulseless ventricular tachy cardia events requiring shock, from which she recovered well, was put on an amiodarone drip and retur andra to the intensive care unit. There was discussion of starting a hypothermia protocol in the emerg ency department, but it sounds like it did not really start until she arrived in the intensive care u nit at 0400 today. Her blood pressure has been stable since, as has been her ventilator settings and rhythm. REVIEW OF SYSTEMS: Mostly negative, according to the charts. PAST MEDICAL HISTORY: Includes only asthma or COPD. PAST SURGICAL HISTORY: Unknown. SOCIAL HISTORY: She is a former smoker, but I believe one of her medications included Chantix, which suggests more recent smoking. Alcohol history is unknown. FAMILY HISTORY: Unknown. CURRENT MEDICATIONS: Include albuterol, amiodarone, Plavix, dopamine p.r.n., Lovenox, insulin drip, Solu-Medrol 125 q.6 hours, Protonix, propofol, vecuronium. PHYSICAL EXAM: VITAL SIGNS: Current temperature is 33.1, on hypothermia protocol. Blood pressure 1 14/73, heart rate 81, in atrial fibrillation. Respirations 24, on a ventilator. Oxygen saturation w as 40%, with 5 of PEEP. GENERAL: She was sedated, paralyzed in no apparent distress. HEENT: Pupil s were equally round and reactive to light. Nonicteric and noninjected. NECK: Supple, without tahmina opathy or jugular vein distention. RESPIRATORY: Breath sounds were clear to auscultation bilaterall y, without wheezes, rubs or rales. HEART: An irregular rhythm, but no obvious murmurs. ABDOMEN: S oft, nontender, nondistended, without hepatosplenomegaly. Right triple-lumen catheter with Thermogar d in place, had a little bit of blood but no obvious hematoma. A-line was in the arterial sheath of the left femoral artery, without obvious hematoma. Pulses in her lower extremities were not palpable but were obtained using Doppler without difficulty. Both feet were cool, the left leg actually bein g slightly warmer than the right, but no discoloration and no edema. Skin was otherwise without rash . NEUROLOGICAL: Exam was unable to be done at this time. LABORATORY DATA: Includes a white count of 13.8, hematocrit of 38, platelets 257. INR 3.4. Blood g as drawn at 0455 shows a pH 7.26, pCO2 46, pO2 261, bicarb 23, sat of 99%, and that was on 70% FiO2 a nd IMV in a paralyzed patient. Basic metabolic panel was unremarkable, save for a glucose of 262. M agnesium was low at 1.5. It has been replaced. AST and ALT 174 and 184, respectively, with a normal total bilirubin. Troponin was 0.935, now down to 0.75. Alcohol was 11. Chest x-ray shows adequate placement of the ET tube and hyperinflation, but no pneumothorax and no infiltrates. An echocardiog tatiana done today shows an ejection fraction of 35%, small effusion, mild global hypokinesis, but no bal looning, though there is a rumor of takotsubo. ASSESSMENT/PLAN: 1. Cardiac arrest. The etiology here is probably a combination of factors, including hypoxemia in t he setting of chronic obstructive pulmonary disease and an ST-elevation myocardial infarction with he r coronary disease, as described above. The question is whether or not hypothermia protocol is indic ated, which is usually used for patients who are comatose following cardiac arrest, primarily outside of hospital cardiac arrest. I think that the risk and benefit ratio here favors more risk than bene fit, and I do not think this is indicated for reasons of adequate mental status following her CPR, as well as the very brief duration of the CPR, though the exact number is not known at this time. The complications of leaving the Thermogard in place, as well as maintaining a low body temperature in th e setting of arrhythmias I think would preclude that. Will discuss that on rounds today with the [facility] pitalist team, as well as Cardiology. 2. Acute hypoxic respiratory failure, requiring mechanical ventilation. This is likely due to above , and her ventilator settings are minimal. Her respiratory rate was increased because of the pH this morning. I think a repeat blood gas will be indicated once her paralytics are removed. Would also wean sedation as tolerated and see if she can wake up today. She may just do better with observation today with extubation early tomorrow morning. 3. ST-elevation myocardial infarction. She has multivessel disease, a variety of severity, now has a stent, and her cath was complicated by ventricular tachycardia, requiring shock in the electroplating laborer. S he is on Plavix at this point. Will have Cardiology involvement. Probably needs to remain on amioda manpreet, which is controlling her rate at this time. Her ejection fraction shows 35%, and the final dis cussion about takotsubo is pending at this time. 4. Atrial fibrillation. As I said, she is on amiodarone at this time. Will continue to follow this rhythm. She will eventually need anticoagulation. 5. Chronic obstructive pulmonary disease. She is being treated for this with beta-agonists and ster oids. Given her arrhythmias, we may consider Xopenex. Would like to reduce her Solu-Medrol to 60 a day until we can further evaluate this problem. I do not feel that antibiotics are indicated at this time. 6. Elevated INR. I presume this is related to a cardiac arrest, though it is possible she was on Co umadin previously. According to notes from the hospitalist, her past medical history has been closely guarded and not shared with her family, so we may have to discuss with her more in person. The INR of 3.4 does pose a bit of an issue with pulling her sheaths. Will recheck that later this afternoon. Certainly is not getting any antagonist at this time, but we may consider giving her vitamin K. Gabriel crocker probably will need a PICC line if the other lines come out. 7. Transaminitis. This is likely due to her cardiac arrest. I would simply follow these and consid er further workup should they continue to rise or fail to improve. 8. A total of 65 minutes of critical care time was required for this patient. /[id number]/MODL
[2018-01-01] MEDS ORDERED: IPRATROPIUM/ALBUTEROL 4GM MDI IH SCH (12:00)
[2018-01-01] MEDS: PANTOPRAZOLE SODIUM 40 MG VIAL IVP SCH (12:06)
[2018-01-01] MEDS: methylPREDNISolone SOD SUCC 125 MG/2 ML VIAL IVP SCH ×2 (12:06→17:47)
[2018-01-01 12:43] LABS: INR 1.23 (0.83-1.16); PROTIME(PATIENT) 15.7 SEC (12.0-15.0)
--- NOTE | 2018-01-01 13:19 | SOAPPROG ---
SOAP Progress Note Assessment/Plan: 1. PEA - Pt presented with PEA. Pt developed a perfusing rhythm post intubation. Suspect secondary to hypoxemia. Risks of HACA likely outweigh the benefits. Pt has started the rewarming process. 2. ACS - Pt was found to have a mild troponin elevation in the setting of PEA. EKG demonstrated dynamic ST and T changes. Pt was taken to the cardiac catheterization laboratory were she was found to have reese 3 flow in all vessels but was noted to have high grade disease involving the RCA. She was treated with PCI of her RCA. Troponin has trended down. Suspect supply demand miss match as opposed to a primary event. --> Continue asa and plavix --> Add BB and tata as BP will allow. --> FLP now. Consider statin after LFTs normalize 3. A-fib - Pt with new onset of A-fib. Currently rate controlled on amiodarone. Will start heparin after rewarming from HACA protocol. 4. Cardiomyopathy - Pt has a CM with basilar hyperkinesia and mid/ apical hypokinesia. This does not fit her coronary anatomy. ? takotsubo vs previous AR. --> Will try to obtain old records from physician --> Start BB and tata as BP will allow 5. COPD 01/01/18 13:19 Subjective: Records reviewed from previous night including ED report, EKGs, echocardiogram, and angiogram. In brief, Pt was admitted with PEA. She returned to a perfusing rhythm following intubation. Angiogram demonstrated timit III flow in all vessels with intermediate to high grade disease involving the diagonal and right coronary arteries. Pt treated with PCI of her RCA. LVEF = 35% with wall motion abnormalities out of proportion to her CAD. Pt is weaning off pressor support and HACA protocol. Troponin has remained flat. Past medical history is limited at this time. Objective: Vital Signs Temp Pulse Resp BP Pulse Ox 33.4 C L 78 24 H 123/80 H 100 01/01/18 13:04 01/01/18 13:04 01/01/18 13:04 01/01/18 13:04 01/01/18 13:04 Laboratory Results 01/01/18 10:11 12/31/17 01/01/18 01/02/18 05:59 05:59 05:59 Intake Total 2189 600 Output Total 975 725 Balance 1214 -125 PT 15.7 SEC (12.0-15.0) H D 01/01/18 11:35 INR 1.23 (0.83-1.16) H 01/01/18 11:35 Physical Exam - Physical Exam General Appearance: other (Pt sedate) Respiratory: other (corse bronchial breath sounds) Cardiac/Chest: irregularly irregular Abdomen: non-tender, soft Extremities: other (deminished pulses), No pedal edema Neuro/Psych: other (sedate) ICD10 Worksheet Patient Problems: Problems Problem Status Onset COPD (chronic obstructive pulmonary disease) Acute Cardiopulmonary arrest Acute Elevated troponin Acute Rib fracture Acute Sternal fracture Acute
[2018-01-01 13:27] LABS: PLATELET COUNT 257 10^3/uL (150-400)
[2018-01-01] MEDS ORDERED: PROTOCOL CALCIUM 1 DOSE IV PRN (14:27)
[2018-01-01] MEDS ORDERED: PROTOCOL K PHOSPHATE 1 DOSE IV PRN (14:27)
[2018-01-01] MEDS: IPRATROPIUM HFA INHALER IH SCH ×3 (15:52→23:49)
[2018-01-01 17:15] LABS: PLATELET COUNT 196 10^3/uL (150-400)
[2018-01-01 17:17] LABS: INR 1.15 (0.83-1.16); PROTIME(PATIENT) 14.9 SEC (12.0-15.0)
--- NOTE | 2018-01-01 17:27 | CPEKG ---
Heart Rate: 75 RR Interval: 800 P-R Interval: 160 QRSD Interval: 78 QT Interval: 404 QTC Interval: 452 P [place]: 84 QRS [place]: 87 T Wave [place]: 80 EKG Severity - ABNORMAL ECG - EKG Impression: SINUS RHYTHM EKG Impression: BORDERLINE RIGHT AXIS DEVIATION EKG Impression: CONSIDER ANTERIOR INFARCT --RECENT, EVOLVING Electronically Signed By: Isidro Chang 01-Jan-2018 20:49:11
[2018-01-01] MEDS: ALBUTEROL 60 PUFFS/8 GM MDI IH SCH ×2 (17:46→23:49)
[2018-01-01] MEDS: LISINOPRIL 5 MG TAB TUBE SCH (17:47)
--- NOTE | 2018-01-01 17:55 | HOSPPROG ---
Hospitalist Progress Note Assessment/Plan: Assessment: 72 yo F p/w PEA arrest 2/2 acute hypoxic and hypercapnic respiratory failure and acute COPD exacerbation c/b type II NSTEMI, non- ischemic cardiomyopathy, acute metabolic acidosis, VTach, new Afib, and suspected cardiogenic shock Plan: # PEA arrest. Acute, this occurred on arrival and resulted in brief CPR w/ return of circulation, subsequent movements and possibly interactive, albeit challenging to interpret as she had been intubated on arrival - suspect that her cardiac arrest was result of hypoxia 2/2 COPD exacerbation as her cath did not demonstrate a primary cardiac event - risks>benefits of HACA, discussed on team rounds w/ Dr. Crain, decision made to warm and reassess neuro status - currently on vecuronium/propofol, will stop vec once at goal temp, then wean propofol to gauge mental status, remain on vent until clear that patient is directible and protecting airway # COPD exacerbation. Acute, evidenced by resp distress on arrival w/ underlying COPD, recent elevation change, and symptomatic shortness of breath prior to arrival, hypercapnic on initial ABG - CTA w/o PE or PNA - D#1 steroids, adjusted from methylpred 125 to 60mg q6, continue - alb/atrovent via vent scheduled q6 - currently no wheezes # Acute hypoxic and hypercapnic respiratory failure. Evidenced by resp distress + pCO2 50 + PaO2 54 w/ objective tachypnea, requiring intubation, 2/2 COPD exacerbation - ABG hypercapnea and hypoxia improved on vent - will consider extubation when mental status improves - anticipate patient will require supplemental o2 at discharge # Type II NSTEMI. POA, evidenced by trop 0.8 in setting of acute stress from above, cath demonstrated 70% RCA w/ vasospasm, and, given patient's atrial and ventricular arrhythmias originating during cath (VTach and AFib), as well as her preceding PEA arrest, decision made to place JAIR in RCA # Non-ischemic Cardiomyopathy w/ suspected cardiogenic shock. 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 Villarreal recommends bblocker/ACEi if BP can tolerate - would recommend repeating Echo prior to DC to determine whether EF recovered # CAD. Revealed on cath, patient has mild-moderate multivessel disease and JAIR in RCA - ASA/plavix - LDL 85, goal 70, rec statin when taking PO - check A1c - bblocker/ACEi as above # Acute ventricular tachycardia. 2 episodes during cath, s/p DCCV x 2 w/ resolution, monitor on tele # Atrial fibrillation. New onset, likely provoked by above, currently on amio gtt - ASA for CVA ppx, will need outpt reassess w/ 30-day monitor to gauge whether recurrence - defer to cardiology whether systemic anticoagulation indicated now, as she was chemically cardioverted w/ amio and is now on DAPT # Acute metabolic acidosis. Evidenced by pH 7.22 on presentation which is a more severe acidosis than one would get w/ an acute pCO2 50, so there was definitely a metabolically hypoperfusion component - stabilizing w/ pressor/vent # Coagulopathy. Acute, unclear etiology, no e/o DIC on repeat labs Diet. NPO w/ IVF PPx. High risk, lovenox when rewarmed, coags normalized Code. Full Dispo. ADD uncertain, remains critically ill. 60 minutes of critical care time spent w/ this patient, at bedside, coordinating care w/ Dr. Crain on team rounds, specifically addressing the issue of her PEA arrest and its causes, and patient remains critically ill w/ high risk of worsening morbidity/mortality. Subjective: patient vented/sedated Objective: Vital Signs Temp Pulse Resp BP Pulse Ox 34.3 C L 63 20 143/105 H 100 01/01/18 17:00 01/01/18 17:48 01/01/18 17:48 01/01/18 17:41 01/01/18 17:48 Laboratory Results 01/01/18 16:30 01/01/18 16:30 12/31/17 01/01/18 01/02/18 05:59 05:59 05:59 Intake Total 2189 600 Output Total 975 725 Balance 1214 -125 PT 14.9 SEC (12.0-15.0) 01/01/18 16:30 INR 1.15 (0.83-1.16) 01/01/18 16:30 - Physical Exam Constitutional: no apparent distress, not in pain, No uncomfortable Eyes: other (fixed pupils, central) Cardiovascular: systolic murmur (I/vI at sternum), No irregularly irregular, No tachycardia, No edema Respiratory: no respiratory distress, no rales or rhonchi, clear to auscultation Gastrointestinal: normoactive bowel sounds, soft, non-tender abdomen, no palpable masses Genitourinary: penn in urethra Neurologic: other (AAOX0) ICD10 Worksheet Patient Problems: Problems Problem Status Onset COPD (chronic obstructive pulmonary disease) Acute Cardiopulmonary arrest Acute Elevated troponin Acute Rib fracture Acute Sternal fracture Acute
[2018-01-01] MEDS: fentaNYL/NACL 100 ML IV SCH (18:14)
[2018-01-01] MEDS ORDERED: NS 250 ML IV ONE (21:00)
[2018-01-01] MEDS: ASPIRIN RECTAL 300 MG SUPP PR SCH (21:19)
[2018-01-01] MEDS: CLOPIDOGREL BISULFATE 75 MG TAB TUBE SCH (21:19)
[2018-01-01] MEDS: AMIODARONE HCL 200 ML IV SCH (22:31)
[2018-01-02] MEDS: methylPREDNISolone SOD SUCC 125 MG/2 ML VIAL IVP SCH ×4 (00:14→18:24)
[2018-01-02] MEDS ORDERED: NS 500 ML IV ONE (03:21)
[2018-01-02] MEDS: LORazepam 2 MG/ML INJ IVP PRN ×2 (03:25→07:04)
[2018-01-02] MEDS: NOREPINEPHRINE BITARTRATE 4 MG in NS 500 ML IV SCH (03:56)
[2018-01-02] MEDS ORDERED: ENOXAPARIN 40 MG/0.4 ML SYR SC SCH (04:00)
[2018-01-02 04:08] LABS: PLATELET COUNT 231 10^3/uL (150-400)
[2018-01-02 04:12] LABS: INR 1.2 (0.83-1.16); PROTIME(PATIENT) 15.4 SEC (12.0-15.0)
[2018-01-02] MEDS: fentaNYL/NACL 100 ML IV SCH (05:11)
[2018-01-02] MEDS: IPRATROPIUM HFA INHALER IH SCH ×2 (05:24→11:55)
[2018-01-02] MEDS: ALBUTEROL 60 PUFFS/8 GM MDI IH SCH ×2 (05:24→11:55)
[2018-01-02] MEDS ORDERED: CALCIUM GLUCONATE 1 GM in D5W 50 ML IV ONE (06:15)
[2018-01-02] MEDS: LISINOPRIL 5 MG TAB TUBE SCH (07:54)
[2018-01-02] MEDS ORDERED: MAGNESIUM SULF 1 GM/DEXTROSE 100 ML IV ONE (08:48)
[2018-01-02] MEDS ORDERED: CLOPIDOGREL BISULFATE 75 MG TAB PO SCH (09:00)
--- NOTE | 2018-01-02 09:08 | CPEKG ---
Heart Rate: 62 RR Interval: 968 QRSD Interval: 80 QT Interval: 497 QTC Interval: 505 QRS [place]: 86 T Wave [place]: 96 EKG Severity - ABNORMAL ECG - EKG Impression: BORDERLINE RIGHT AXIS DEVIATION EKG Impression: ANTERIOR INFARCT -- Evolving, Compared to January 01, 2017, 17:25 EKG Impression: BORDERLINE PROLONGED QT INTERVAL EKG Impression: Wandering atrial pacemaker EKG Impression: Possible old inferior myocardial infarction EKG Impression: Probable left atrial abnormality EKG Impression: Diffuse ST-T wave abnormalities Electronically Signed By: Isidro Chang 02-Jan-2018 10:49:44
[2018-01-02] MEDS: PANTOPRAZOLE SODIUM 40 MG VIAL IVP SCH (10:04)
--- NOTE | 2018-01-02 11:22 | SOAPPROG ---
THANH Progress Note Assessment/Plan: 1. PEA - Pt presented with PEA. Pt developed a perfusing rhythm post intubation. Suspect secondary to hypoxemia. 2. ACS - Pt was found to have a mild troponin elevation in the setting of PEA. EKG demonstrated dynamic ST and T changes. Pt was taken to the cardiac catheterization laboratory were she was found to have reese 3 flow in all vessels but was noted to have high grade disease involving the RCA and diagonal arteries. Patient was treated with PCI of her RCA. Troponin has trended down. Suspect supply demand miss match as opposed to a primary event. --> Continue asa and plavix --> Continue lisinopril --> Add coreg when amiodarone is DC 3. A-fib - Pt presented to the ER in sinus rhythm. She went into A-fib in the setting of acute stress. She converted to NSR on 01/01 on amiodarone. Pt does not have a previous history of A-fib. Suspect situational. Will not start full anticoagulation given bleeding risk. --> Continue amiodarone for additional 24 hrs. 4. Cardiomyopathy - Pt has a CM with basilar hyperkinesia and mid/ apical hypokinesia. This does not fit her coronary anatomy. No history of previous [place]. suspect stress induced. --> Continue lisinopril --> Consider coreg in am 5. COPD - Pt has a history of severe COPD 6. Hyperlipidemia - LDL is 85. Goal is less than 70. --> Start lipitor 20 mg daily 01/02/18 11:23 Subjective: Pt converted to NSR overnight Pt extubated this am Pt groggy but responds to commands appropriately Objective: Vital Signs Temp Pulse Resp BP Pulse Ox 36.5 C 90 16 123/70 H 98 01/02/18 11:00 01/02/18 11:00 01/02/18 11:00 01/02/18 11:00 01/02/18 11:00 Laboratory Results 01/02/18 03:50 01/02/18 03:50 01/01/18 01/02/18 01/03/18 05:59 05:59 05:59 Intake Total 2189 4913 Output Total 975 695 Balance 1214 4218 PT 15.4 SEC (12.0-15.0) H 01/02/18 03:50 INR 1.20 (0.83-1.16) H 01/02/18 03:50 Physical Exam - Physical Exam General Appearance: other (groggy) Respiratory: wheezing Cardiac/Chest: regular rate, rhythm Abdomen: non-tender, soft Skin: normal color Extremities: other (deminished pulses B), No pedal edema ICD10 Worksheet Patient Problems: Problems Problem Status Onset COPD (chronic obstructive pulmonary disease) Acute Cardiopulmonary arrest Acute Elevated troponin Acute Rib fracture Acute Sternal fracture Acute
[2018-01-02] MEDS: AMIODARONE HCL 200 ML IV SCH ×2 (11:51→21:47)
[2018-01-02] MEDS ORDERED: IPRATROPIUM/ALBUTEROL 3 ML DEYVIAL IH PRN (12:06)
[2018-01-02] MEDS ORDERED: NALOXONE HCL 0.4 MG/ML INJ ONE (12:47)
[2018-01-02] MEDS ORDERED: NALOXONE HCL 0.4 MG/ML INJ IVP PRN (12:49)
[2018-01-02] MEDS ORDERED: NALOXONE HCL 2 MG in D5W 500 ML IV SCH (13:00)
--- NOTE | 2018-01-02 14:03 | HOSPPROG ---
Hospitalist Progress Note Assessment/Plan: # PEA arrest - suspect d/t hypoxia; s/p HACA # CAD s/p PCI to RCA- type II NSTEMI - asa/plavix - start lipitor soon # cardiomyopathy with WMA not correlating to her coronary more suggestive of stress CM - lisinopril; start BB per cards # VT during cath - cont amiodarone # a-fib - currently in NSR - cont amiodarone - no AC given bleeding risk # respiratory depression d/t fentanyl - cont narcan gtt today # COPD with acute exacerbation - cont steroids IV today - restart her home inhalers soon # acute hypoxic and hypercapnic resp failure - extubated today # sternal and rib fractures - d/t CPR - will assess her pain level when more alert Subjective: extubated; poor respirations, given narcan with improvement in her mentation Objective: Vital Signs Temp Pulse Resp BP Pulse Ox 36.5 C 101 H 16 144/72 H 99 01/02/18 12:00 01/02/18 12:32 01/02/18 12:32 01/02/18 12:24 01/02/18 12:32 Laboratory Results 01/02/18 03:50 01/02/18 03:50 01/01/18 01/02/18 01/03/18 05:59 05:59 05:59 Intake Total 2189 4913 Output Total 975 695 Balance 1214 4218 PT 15.4 SEC (12.0-15.0) H 01/02/18 03:50 INR 1.20 (0.83-1.16) H 01/02/18 03:50 45 mins of floor CC time managing resp failure requiring narcan - Physical Exam Constitutional: uncomfortable Cardiovascular: regular rate and rhythym, no murmur, rub, or gallop Respiratory: expiratory wheeze, other (slow RR), No reduced air movement, No dullness to percussion Gastrointestinal: soft, non-tender abdomen, no palpable masses, other (NGT) ICD10 Worksheet Patient Problems: Problems Problem Status Onset Cardiopulmonary arrest Acute Elevated troponin Acute Rib fracture Acute Sternal fracture Acute COPD (chronic obstructive pulmonary disease) Acute
--- NOTE | 2018-01-02 14:22 | PDINTPN ---
Boil Off Machine Operator Cloth Progress Note Assessment/Plan: Assessment/plan: 72 F with probable advanced COPD c/o recent increasing SOB while driving to [place] from [place], brought directly to ED where she had a brief PEA arrest. No meds given and rapid ROSC with intubation. She was apparently interacting on the vent and was told she would go to the entry level lab technician for a troponin elevation and abnormal EKG. She was stented in the RCA for a 70% lesion and found to have non- obstructive, but diffuse disease elsewhere. HACA was started, but reversed soon after since the indication was weak. * Cardiac arrest- I suspect this was driven by hypoxia>CAD. Good prognosis. HACA not indicated but protocol demands central catheter stays in 24 hrs post re -warming. * Acute respiratory failure with hypoxia and hypercapnia. She was extubated this am but remained somnolent so an ABG was drawn revealing a resp acidosis. A dose of narcan was given and she responded rapidly, so a drip was ordered, but she required bipap before it could arrive. Her elevated CO2 is likely from fentanyl given up to this am since she responded well to narcan. No evidence of chronic CO2 retention. Continue bipap for now and repeat abg pending. I suspect fentanyl should wear off by evening. CXR unremarkable today * CAD- s/p RCA stent and on plavix * Afib- converted to NSR though remains on amiodarone drip for now. Anticipate dc in am. No contraindications to beta loree as discussed with Dr. Villarreal. * COPD- resume home meds when she is able. Will reduce steroids to qd; eventual prednisone when she can take PO. * LFTs- likely from arrest. recheck am * INR- resolved * * critical care time 65 minutes 01/02/18 14:23 Subjective: extubated this am Objective: Vital Signs Temp Pulse Resp BP Pulse Ox 36.5 C 101 H 16 144/72 H 99 01/02/18 12:00 01/02/18 12:32 01/02/18 12:32 01/02/18 12:24 01/02/18 12:32 Laboratory Results 01/02/18 03:50 01/02/18 03:50 01/01/18 01/02/18 01/03/18 05:59 05:59 05:59 Intake Total 2189 4913 Output Total 975 695 Balance 1214 4218 PT 15.4 SEC (12.0-15.0) H 01/02/18 03:50 INR 1.20 (0.83-1.16) H 01/02/18 03:50 Physical Exam - Physical Exam General Appearance: no apparent distress, obtunded, other (on vent ) EENT: PERRL/EOMI Neck: supple Respiratory: lungs clear, normal breath sounds, No respiratory distress Cardiac/Chest: regular rate, rhythm, No edema Abdomen: non-tender, soft, No distended Skin: normal color, warm/dry, No cyanosis Lymphatic: no adenopathy Extremities: No pedal edema Neuro/Psych: cognition abnormalities ICD10 Worksheet Patient Problems: Problems Problem Status Onset COPD (chronic obstructive pulmonary disease) Acute Cardiopulmonary arrest Acute Elevated troponin Acute Rib fracture Acute Sternal fracture Acute
[2018-01-02] MEDS ORDERED: PROTOCOL MAGNESIUM 1 DOSE IV PRN (14:48)
[2018-01-02] MEDS ORDERED: PROTOCOL POTASSIUM 1 DOSE MISC PRN (14:48)
[2018-01-02] MEDS ORDERED: PROTOCOL CALCIUM 1 DOSE IV PRN (14:48)
[2018-01-02] MEDS ORDERED: PROTOCOL K PHOSPHATE 1 DOSE IV PRN (14:48)
[2018-01-02] MEDS: IPRATROPIUM/ALBUTEROL 3 ML DEYVIAL IH SCH (15:44)
[2018-01-02] MEDS: ASPIRIN RECTAL 300 MG SUPP PR SCH (20:42)
[2018-01-02] MEDS: CLOPIDOGREL BISULFATE 75 MG TAB TUBE SCH (20:50)
[2018-01-02] MEDS ORDERED: OLANZapine 5 MG TAB PO PRN (21:30)
[2018-01-02] MEDS ORDERED: ATROPINE SULFATE 1 MG/10 ML SYR ONE (21:58)
[2018-01-02] MEDS ORDERED: ACETAMINOPHEN 650 MG SUPP PR ONE (22:21)
[2018-01-02] MEDS ORDERED: ACETAMINOPHEN 650 MG/20.3 ML UDCUP ONE (22:24)
[2018-01-03] MEDS: methylPREDNISolone SOD SUCC 125 MG/2 ML VIAL IVP SCH ×3 (00:06→08:36)
[2018-01-03] MEDS: IPRATROPIUM/ALBUTEROL 3 ML DEYVIAL IH SCH ×5 (00:26→21:19)
[2018-01-03] MEDS: ENOXAPARIN 60 MG/0.6 ML SYR SC SCH ×2 (05:44→17:31)
[2018-01-03] MEDS: PANTOPRAZOLE SODIUM 40 MG VIAL IVP SCH (08:36)
[2018-01-03] MEDS: LISINOPRIL 5 MG TAB TUBE SCH (08:36)
[2018-01-03] MEDS: AMIODARONE HCL 200 ML IV SCH (08:36)
--- NOTE | 2018-01-03 10:41 | HOSPPROG ---
Hospitalist Progress Note Assessment/Plan: # PEA arrest - suspect d/t hypoxia; s/p short course of HACA (stopped early d/t weak indication) # CAD s/p PCI to RCA- type II NSTEMI - was unlikely the primary event - asa/plavix - start lipitor soon # DVT - likely d/t thermaguard - lovenox, transition to PO anticoag soon # cardiomyopathy with WMA not correlating to her coronary more suggestive of stress CM - lisinopril; start BB per cards # VT during cath - cont amiodarone (anticipate dc soon) # a-fib - currently in NSR - cont amiodarone (anticipate dc soon) # respiratory depression and acute CO2 retention d/t fentanyl - - resolved after narcan, stable today # COPD with acute exacerbation - cont steroids IV today - inhalers per pulm # acute hypoxic and hypercapnic resp failure - extubated yesterday - overall much improved # sternal and rib fractures - d/t CPR - will assess her pain level when more alert Subjective: sitting in chair; overall much more alert today Objective: Vital Signs Temp Pulse Resp BP Pulse Ox 37.4 C 98 16 136/66 H 100 01/03/18 10:00 01/03/18 10:00 01/03/18 10:00 01/03/18 10:00 01/03/18 10:00 Laboratory Results 01/03/18 04:35 01/03/18 04:35 01/02/18 01/03/18 01/04/18 05:59 05:59 05:59 Intake Total 4913 1286 Output Total 695 595 Balance 4218 691 PT 15.4 SEC (12.0-15.0) H 01/02/18 03:50 INR 1.20 (0.83-1.16) H 01/02/18 03:50 high risk - Physical Exam Constitutional: no apparent distress, appears nourished Ears, Nose, Mouth, Throat: other (NGT) Cardiovascular: regular rate and rhythym, no murmur, rub, or gallop Respiratory: reduced air movement (bilat), expiratory wheeze (diffuse), inspiratory crackles (basilar), respiratory distress (mild) Gastrointestinal: soft, non-tender abdomen, no palpable masses Genitourinary: penn in urethra ICD10 Worksheet Patient Problems: Problems Problem Status Onset Cardiopulmonary arrest Acute Elevated troponin Acute Rib fracture Acute Sternal fracture Acute COPD (chronic obstructive pulmonary disease) Acute
[2018-01-03] MEDS ORDERED: ACETYLCYSTEINE 10% IH/PO 4 ML VIAL IH SCH (12:00)
--- NOTE | 2018-01-03 15:13 | PDINTPN ---
Surveillance Investigator Progress Note Assessment/Plan: Assessment/plan: 72 F with probable advanced COPD c/o recent increasing SOB while driving to [place] from [place], brought directly to ED where she had a brief PEA arrest. No meds given and rapid ROSC with intubation. She was apparently interacting on the vent and was told she would go to the ear mold laboratory technician for a troponin elevation and abnormal EKG. She was stented in the RCA for a 70% lesion and found to have non- obstructive, but diffuse disease elsewhere. HACA was started, but reversed soon after since the indication was weak. * Cardiac arrest- I suspect this was driven by hypoxia>CAD. Excellent prognosis and clear neurologically today * Acute respiratory failure with hypoxia and hypercapnia. She was extubated and required bipap briefly related to narcotics. She requires minimal O2 today though still has cough and wheezeing. Mucomyst added today and steroids decreased to 60 mg/day. * CAD- s/p RCA stent and on plavix * Afib- converted to NSR though remains on amiodarone drip for now. No contraindications to beta loree as discussed with Dr. Villarreal. * COPD- resume home meds. Eventual prednisone when she can take PO. * LFTs- likely from arrest. resolving * INR- resolved * * Subjective: successful extubation 01/02 Objective: Vital Signs Temp Pulse Resp BP Pulse Ox 37 C 97 17 144/62 H 100 01/03/18 12:00 01/03/18 14:00 01/03/18 14:00 01/03/18 14:00 01/03/18 14:00 Laboratory Results 01/03/18 04:35 01/03/18 04:35 01/02/18 01/03/18 01/04/18 05:59 05:59 05:59 Intake Total 4913 1286 Output Total 695 595 500 Balance 4218 691 -500 PT 15.4 SEC (12.0-15.0) H 01/02/18 03:50 INR 1.20 (0.83-1.16) H 01/02/18 03:50 Physical Exam - Physical Exam General Appearance: alert, mild distress EENT: PERRL/EOMI Neck: supple Respiratory: respiratory distress (mild), accessory muscle use, decreased breath sounds, wheezing, No stridor Cardiac/Chest: regular rate, rhythm, No edema Abdomen: non-tender, soft, No distended Skin: normal color, warm/dry, No cyanosis Lymphatic: no adenopathy Extremities: No pedal edema Neuro/Psych: alert, normal mood/affect, cognition abnormalities ICD10 Worksheet Patient Problems: Problems Problem Status Onset COPD (chronic obstructive pulmonary disease) Acute Cardiopulmonary arrest Acute Elevated troponin Acute Rib fracture Acute Sternal fracture Acute
--- NOTE | 2018-01-03 15:47 | SOAPPROG ---
THANH Progress Note Assessment/Plan: 1. PEA - Pt presented with PEA. Pt developed a perfusing rhythm post intubation. Suspect secondary to hypoxemia. 2. ACS - Pt was found to have a mild troponin elevation in the setting of PEA. EKG demonstrated dynamic ST and T changes. Pt was taken to the cardiac catheterization laboratory were she was found to have reese 3 flow in all vessels but was noted to have high grade disease involving the RCA and diagonal arteries. Patient was treated with PCI of her RCA. Troponin has trended down. Suspect supply demand miss match as opposed to a primary event. --> Continue asa and plavix --> Continue lisinopril --> Start coreg 3. A-fib - Pt presented to the ER in sinus rhythm. She went into A-fib in the setting of acute stress. She converted to NSR on 01/01 on amiodarone. Pt does not have a previous history of A-fib. Suspect situational. Currently anticoagulated with lovenox. --> Will DC amiodarone and start coreg. 4. Cardiomyopathy - Pt has a CM with basilar hyperkinesia and mid/ apical hypokinesia. This does not fit her coronary anatomy. No history of previous [place]. suspect stress induced. --> Continue lisinopril --> Start coreg --> Repeat echocardiogram prior to discharge 5. COPD - Pt has a history of severe COPD 6. Hyperlipidemia - LDL is 85. Goal is less than 70. --> Continue lipitor 20 mg daily --> FLP and LFTs in 3 months. Subjective: Pt extubated on 01/02 No further episodes of A-fib limited ambulation dyspnea improved Objective: Vital Signs Temp Pulse Resp BP Pulse Ox 37 C 97 17 144/62 H 100 01/03/18 12:00 01/03/18 14:00 01/03/18 14:00 01/03/18 14:00 01/03/18 14:00 Laboratory Results 01/03/18 04:35 01/03/18 04:35 01/02/18 01/03/18 01/04/18 05:59 05:59 05:59 Intake Total 4913 1286 Output Total 695 595 500 Balance 4218 691 -500 PT 15.4 SEC (12.0-15.0) H 01/02/18 03:50 INR 1.20 (0.83-1.16) H 01/02/18 03:50 Physical Exam - Physical Exam General Appearance: alert, mild distress Respiratory: wheezing Cardiac/Chest: regular rate, rhythm Abdomen: non-tender, soft Extremities: other (No hematoma or echymosis L inguinal access site.), No pedal edema ICD10 Worksheet Patient Problems: Problems Problem Status Onset COPD (chronic obstructive pulmonary disease) Acute Cardiopulmonary arrest Acute Elevated troponin Acute Rib fracture Acute Sternal fracture Acute
[2018-01-03] MEDS: ACETYLCYSTEINE 10% IH/PO 4 ML VIAL IH SCH ×2 (16:11→21:19)
--- NOTE | 2018-01-03 16:20 | ASMTCMCOM ---
CM Note CM Note Notes: Met with patient's daughter, Eliana and patient's boyfriend, Jad.Reviewed the possible d/c plans that may be recommended when patient is ready to d/c. Patient developed a blood clot last night which changes the timeline for patient returning home. Patient would like to go directly from the ICU home but is willing to consider recommendations in the event this is not medically advisable. Patient is most interested in home health while staying at her daughter, Yuli's house. Eliana indicated [facility] would be ok if that is what the plan is. D/C plan is still TBD. Eliana and Jad had questions about palliative care. Addressed their questions and discussed how it may be best to start this when patient gets home. Again, however, it depends on the progress patient makes and when she can return home. The family will want all patient's medical records at the time of d/c to take to providers back home. CM will follow. Date Signed: 01/03/2018 04:19 PM Electronically Signed By:Mihaela Lance LCSW
[2018-01-03] MEDS: CARVEDILOL 3.125 MG TAB PO SCH (17:32)
[2018-01-03] MEDS: ASPIRIN 325 MG TAB PO SCH (20:16)
[2018-01-03] MEDS: CLOPIDOGREL BISULFATE 75 MG TAB PO SCH (20:16)
[2018-01-03] MEDS: LORazepam 2 MG/ML INJ IVP PRN (22:28)
[2018-01-04] MEDS ORDERED: LORazepam 2 MG/ML INJ IVP PRN (03:17)
[2018-01-04 04:18] LABS: PLATELET COUNT 151 10^3/uL (150-400)
[2018-01-04] MEDS: ENOXAPARIN 60 MG/0.6 ML SYR SC SCH ×2 (05:22→17:40)
[2018-01-04] MEDS: ACETYLCYSTEINE 10% IH/PO 4 ML VIAL IH SCH (05:47)
[2018-01-04] MEDS: IPRATROPIUM/ALBUTEROL 3 ML DEYVIAL IH SCH ×4 (05:47→23:45)
[2018-01-04] MEDS: methylPREDNISolone SOD SUCC 125 MG/2 ML VIAL IVP SCH (09:51)
[2018-01-04] MEDS: PANTOPRAZOLE SODIUM 40 MG VIAL IVP SCH (09:51)
[2018-01-04] MEDS: LISINOPRIL 5 MG TAB PO SCH (10:08)
[2018-01-04] MEDS: CARVEDILOL 3.125 MG TAB PO SCH ×2 (10:08→17:43)
--- NOTE | 2018-01-04 11:19 | PDINTPN ---
Automotive Glass Technician Progress Note Assessment/Plan: Assessment/plan: 72 F with probable advanced COPD c/o recent increasing SOB while driving to [place] from [place], brought directly to ED where she had a brief PEA arrest. No meds given and rapid ROSC with intubation. She was apparently interacting on the vent and was told she would go to the rn lab for a troponin elevation and abnormal EKG. She was stented in the RCA for a 70% lesion and found to have non- obstructive, but diffuse disease elsewhere. HACA was started, but reversed soon after since the indication was weak. * Cardiac arrest- I suspect this was driven by hypoxia>CAD. Excellent prognosis and clear neurologically 01/03. Todays decreased MS 2/ ativna as abg shows no CO2 retention * Acute respiratory failure with hypoxia and hypercapnia. She was extubated and required bipap briefly related to narcotics. She requires minimal O2 today though still has cough and wheezing. Mucomyst added and steroids decreased to 60 mg/day on 01/03, but RT said this cased bronchospasm so mucomyst dc'd. Avoid benzos as much as possible. DC bipap once she is more awake and use vapotherm for O2. No change in solumedrol today. * CAD- s/p RCA stent and on plavix. OK to start Coreg from resp perspective. * Afib- converted to NSR though remains on amiodarone drip for now. * COPD- resume home meds. Eventual prednisone when she can take PO. * LFTs- likely from arrest. resolving * INR- resolved * * 01/04/18 11:17 Subjective: intermittent bipap overnight. Treated with ativan to tolerate. Non verbal this am Objective: Vital Signs Temp Pulse Resp BP Pulse Ox 36.6 C 93 16 135/61 H 99 01/04/18 10:00 01/04/18 10:00 01/04/18 10:00 01/04/18 10:00 01/04/18 10:00 Laboratory Results 01/04/18 04:10 01/04/18 04:10 01/03/18 01/04/18 01/05/18 05:59 05:59 05:59 Intake Total 1286 500 Output Total 595 625 Balance 691 -125 PT 15.4 SEC (12.0-15.0) H 01/02/18 03:50 INR 1.20 (0.83-1.16) H 01/02/18 03:50 Physical Exam - Physical Exam General Appearance: mild distress, obtunded EENT: PERRL/EOMI Neck: supple Respiratory: chest non-tender, lungs clear, normal breath sounds, decreased breath sounds, No respiratory distress, No accessory muscle use Cardiac/Chest: regular rate, rhythm, No edema Abdomen: non-tender, soft, No distended Skin: normal color, warm/dry, No cyanosis Lymphatic: no adenopathy Extremities: No pedal edema Neuro/Psych: cognition abnormalities ICD10 Worksheet Patient Problems: Problems Problem Status Onset COPD (chronic obstructive pulmonary disease) Acute Cardiopulmonary arrest Acute Elevated troponin Acute Rib fracture Acute Sternal fracture Acute
--- NOTE | 2018-01-04 11:23 | HOSPPROG ---
Hospitalist Progress Note Assessment/Plan: # PEA arrest - suspect d/t hypoxia; s/p short course of HACA (stopped early d/t weak indication) # CAD s/p PCI to RCA- type II NSTEMI - was unlikely the primary event - asa/plavix - start lipitor soon # encephalopathy - worse today, likely d/t ativan; will try to decrease as possible # DVT - likely d/t thermaguard - lovenox, transition to PO anticoag when more stable # cardiomyopathy with WMA not correlating to her coronary more suggestive of stress CM - lisinopril; cont coreg # VT during cath - s/p amiodarone, currently on coreg # a-fib - currently in NSR - cont coreg (off amiodarone) # respiratory depression and acute CO2 retention d/t fentanyl - - resolved after narcan, stable today # COPD with acute exacerbation - cont steroids IV today - inhalers per pulm # acute hypoxic and hypercapnic resp failure - extubated yesterday - overall much improved # sternal and rib fractures - d/t CPR - will assess her pain level when more alert Subjective: more confused today; seen on bipap Objective: Vital Signs Temp Pulse Resp BP Pulse Ox 36.6 C 93 16 135/61 H 99 01/04/18 10:00 01/04/18 10:00 01/04/18 10:00 01/04/18 10:00 01/04/18 10:00 Laboratory Results 01/04/18 04:10 01/04/18 04:10 01/03/18 01/04/18 01/05/18 05:59 05:59 05:59 Intake Total 1286 500 Output Total 595 625 Balance 691 -125 PT 15.4 SEC (12.0-15.0) H 01/02/18 03:50 INR 1.20 (0.83-1.16) H 01/02/18 03:50 high risk - Physical Exam Constitutional: uncomfortable (on bipap; not answering questions) Cardiovascular: regular rate and rhythym, no murmur, rub, or gallop Respiratory: reduced air movement (bilat), expiratory wheeze, respiratory distress (mod), No inspiratory crackles, No dullness to percussion Gastrointestinal: soft, non-tender abdomen, no palpable masses ICD10 Worksheet Patient Problems: Problems Problem Status Onset Cardiopulmonary arrest Acute Elevated troponin Acute Rib fracture Acute Sternal fracture Acute COPD (chronic obstructive pulmonary disease) Acute
[2018-01-04] MEDS ORDERED: FUROSEMIDE 20 MG/2 ML VIAL IVP ONE (15:37)
--- NOTE | 2018-01-04 16:13 | SOAPPROG ---
THANH Progress Note Assessment/Plan: 1. PEA - Pt presented with PEA. Pt developed a perfusing rhythm post intubation. Suspect secondary to hypoxemia. 2. ACS - Pt was found to have a mild troponin elevation in the setting of PEA. EKG demonstrated dynamic ST and T changes. Pt was taken to the cardiac catheterization laboratory were she was found to have reese 3 flow in all vessels but was noted to have high grade disease involving the RCA and diagonal arteries. Patient was treated with PCI of her RCA. Troponin has trended down. Suspect supply demand miss match as opposed to a primary event. --> Continue asa and plavix --> Continue coreg and lisinopril 3. A-fib - Pt presented to the ER in sinus rhythm. She went into A-fib in the setting of acute stress. She converted to NSR on 01/01 on amiodarone. Pt does not have a previous history of A-fib. Suspect situational. Currently anticoagulated with lovenox. --> Will DC amiodarone and start coreg. 4. Cardiomyopathy - Pt has a CM with basilar hyperkinesia and mid/ apical hypokinesia. This does not fit her coronary anatomy. No history of previous [place]. suspect stress induced. --> Continue coreg and lisinopril --> Repeat echocardiogram prior to discharge 5. COPD - Pt has a history of severe COPD 6. Hyperlipidemia - LDL is 85. Goal is less than 70. --> Continue lipitor 20 mg daily --> FLP and LFTs in 3 months. 7. Decreased mental status - Pt with decreased mental status today. Moves all 4 extremities and opens eyes on command. Falls asleep and is not interactive today. Pt received 3 mg ativan last pm. ? slow to clear. Pt to be evaluated by neurology. Subjective: Pt sleepy Responds to commands Decreased mental status today. Objective: Vital Signs Temp Pulse Resp BP Pulse Ox 36.6 C 105 H 25 H 125/109 H 96 01/04/18 10:00 01/04/18 15:57 01/04/18 15:57 01/04/18 15:57 01/04/18 15:57 Laboratory Results 01/04/18 04:10 01/04/18 04:10 01/03/18 01/04/18 01/05/18 05:59 05:59 05:59 Intake Total 1286 500 Output Total 595 625 Balance 691 -125 PT 15.4 SEC (12.0-15.0) H 01/02/18 03:50 INR 1.20 (0.83-1.16) H 01/02/18 03:50 Physical Exam - Physical Exam General Appearance: other (sleepy) Respiratory: other (deminished breath sounds) Cardiac/Chest: regular rate, rhythm Skin: other (edema) Extremities: pedal edema ICD10 Worksheet Patient Problems: Problems Problem Status Onset COPD (chronic obstructive pulmonary disease) Acute Cardiopulmonary arrest Acute Elevated troponin Acute Rib fracture Acute Sternal fracture Acute
[2018-01-04] MEDS ORDERED: ONDANSETRON 4 MG/2 ML VIAL ONE (16:14)
[2018-01-04] MEDS ORDERED: ONDANSETRON 4 MG/2 ML VIAL IVP ONE (16:30)
--- NOTE | 2018-01-04 16:33 | ASMTCMCOM ---
CM Note CM Note Notes: Met with patient's daughters Yuli and Eliana regarding the [facility] air transport service that might be available for their mom to return home. D/c plan depends on whether or not the patient can return home immediately or needs rehab care. Will discuss with Dr. Crain in the morning. CM will follow. Date Signed: 01/04/2018 04:33 PM Electronically Signed By:Mihaela Lance LCSW
[2018-01-04] MEDS ORDERED: POLYETHYLENE GLYCOL 3350 17 GM PKT PO PRN (17:26)
[2018-01-04] MEDS ORDERED: MAGNESIUM HYDROXIDE 30 ML UDCUP PO PRN (17:26)
[2018-01-04] MEDS ORDERED: LACTULOSE 20 GM/30 ML UDCUP PO PRN (17:26)
[2018-01-04] MEDS ORDERED: BISACODYL 10 MG SUPP PR PRN (17:26)
[2018-01-04] MEDS: ASPIRIN 325 MG TAB PO SCH (22:07)
[2018-01-04] MEDS: CLOPIDOGREL BISULFATE 75 MG TAB PO SCH (22:07)
[2018-01-04] MEDS: SENNOSIDES/DOCUSATE SODIUM TAB PO SCH (22:56)
[2018-01-04] MEDS ORDERED: NS 1,000 ML IV SCH (23:00)
[2018-01-05 05:12] LABS: PLATELET COUNT 148 10^3/uL (150-400)
[2018-01-05] MEDS: IPRATROPIUM/ALBUTEROL 3 ML DEYVIAL IH SCH (05:26)
[2018-01-05] MEDS: ENOXAPARIN 60 MG/0.6 ML SYR SC SCH ×2 (06:45→17:08)
[2018-01-05] MEDS ORDERED: CALCIUM GLUCONATE 50 ML IV ONE (08:20)
[2018-01-05] MEDS: TIOTROPIUM INHALER 18 MCG/DOSE 5 DOSE/MDI IH SCH (08:23)
[2018-01-05] MEDS: FLUTICASONE/SALMETER 250/50MCG DISKUS IH SCH ×2 (08:24→20:36)
[2018-01-05] MEDS ORDERED: CALCIUM GLUCONATE 1 GM in D5W 50 ML IV ONE (08:30)
[2018-01-05] MEDS ORDERED: FUROSEMIDE 20 MG TAB PO ONE (09:22)
[2018-01-05] MEDS: CARVEDILOL 3.125 MG TAB PO SCH ×2 (09:27→17:56)
[2018-01-05] MEDS: SENNOSIDES/DOCUSATE SODIUM TAB PO SCH ×2 (09:27→19:58)
[2018-01-05] MEDS: predniSONE 20 MG TAB PO SCH (09:27)
[2018-01-05] MEDS: LISINOPRIL 5 MG TAB PO SCH (09:28)
[2018-01-05] MEDS: PANTOPRAZOLE SODIUM 40 MG VIAL IVP SCH (09:28)
--- NOTE | 2018-01-05 13:39 | PDINTPN ---
Electronic Scale Subassembler Progress Note Assessment/Plan: Assessment/plan: 72 F with probable advanced COPD c/o recent increasing SOB while driving to [place] from [place], brought directly to ED where she had a brief PEA arrest. No meds given and rapid ROSC with intubation. She was apparently interacting on the vent and was told she would go to the clinical lab specialist for a troponin elevation and abnormal EKG. She was stented in the RCA for a 70% lesion and found to have non- obstructive, but diffuse disease elsewhere. HACA was started, but reversed soon after since the indication was weak. * Cardiac arrest- I suspect this was driven by hypoxia>CAD. Excellent prognosis and clear neurologically 01/03. MS clearing from ativan (not arrest). Nondiscplaced rib fracture from brief CPR * Acute respiratory failure with hypoxia and hypercapnia. She was extubated and required bipap briefly related to narcotics. Mucomyst added and steroids decreased to 60 mg/day on 01/03, but RT said this cased bronchospasm so mucomyst dc'd. Avoid benzos as much as possible. Now with minimal O2 requirement and no NPPV. Resumed Advair, Spiriva, and changed duoneb to albuterol PRN. Solumedrol to prednisone. * CAD- s/p RCA stent and on plavix. Tolerating Coreg. * Afib- converted to NSR * COPD- Relatively stable * LFTs- likely from arrest. resolving * INR- resolved * * OK for SDU 01/04/18 11:17 01/05/18 13:36 Subjective: Off bipap since 01/04 AM and continues to improve Objective: Vital Signs Temp Pulse Resp BP Pulse Ox 36.9 C 94 15 162/83 H 98 01/04/18 20:00 01/05/18 09:27 01/05/18 06:00 01/05/18 09:28 01/05/18 06:00 Laboratory Results 01/05/18 04:50 01/05/18 04:50 01/04/18 01/05/18 01/06/18 05:59 05:59 05:59 Intake Total 500 785 Output Total 625 505 400 Balance -125 280 -400 PT 15.4 SEC (12.0-15.0) H 01/02/18 03:50 INR 1.20 (0.83-1.16) H 01/02/18 03:50 Physical Exam - Physical Exam General Appearance: alert, no apparent distress EENT: PERRL/EOMI Neck: supple Respiratory: lungs clear, normal breath sounds, decreased breath sounds, No respiratory distress, No accessory muscle use Cardiac/Chest: regular rate, rhythm, No edema Abdomen: non-tender, soft, No distended Skin: normal color, warm/dry, No cyanosis Lymphatic: no adenopathy Extremities: No pedal edema Neuro/Psych: alert, normal mood/affect ICD10 Worksheet Patient Problems: Problems Problem Status Onset COPD (chronic obstructive pulmonary disease) Acute Cardiopulmonary arrest Acute Elevated troponin Acute Rib fracture Acute Sternal fracture Acute
--- NOTE | 2018-01-05 13:56 | GCON ---
[f rep st] CONSULTATION NEUROLOGY CONSULTATION DATE OF CONSULTATION: 01/05/2018 REFERRING PHYSICIAN: Brandon Villarreal MD CHIEF COMPLAINT: Mental status change. HISTORY OF PRESENT ILLNESS: The patient is a very pleasant 72-year-old lady who was driving across the country from [place] to [place] recently and had sudden shortness of breath and chest pain, and ultimately came to the emergency department where she was found cyanotic with pulseless electrical activity. She was found to have an ST-elevation [place] and was taken to the laborer plumbing, where she was found to have a 70% mid RCA lesion and a 56% stenosis of the diagonal branch. She received a stent in the RCA and was placed on Plavix. In the laborer plumbing, she also had 2 pulseless ventricular tachycardia events requiring shock, from which she recovered and was transferred to the ICU. This occurred, I believe, on December 31, 2017. The patient has remained in the ICU since that time and has been recovering and expertly managed by intensive care and hospital medicine, along with Cardiology. She has been needing some BiPAP therapy along with the multiple other therapies, as she does have a history of COPD. She also has had atrial fibrillation. The night before yesterday, she had received 3 mg and Ativan and was slow to clear yesterday, initiating this neurology consult. We obtained a head CT this morning without contrast to ensure there has been no intracranial hemorrhage or acute changes. This study was stable without any acute changes. Indeed, the patient has recovered back to her baseline as the medicine has presumably cleared REVIEW OF SYSTEMS: A 10-point review of systems was done with the patient and her family as best as we could and only pertinent per the HPI. For past medical history, social history, family history, home medications, and allergies, see the history and physical by Dr. Gross dated 01/01/2018. PHYSICAL EXAMINATION: VITAL SIGNS: Blood pressure is 141/68, temperature is 36.9, respirations 16. GENERAL: No acute distress. Very pleasant lady. Awake and alert when I examined her. Language was fluent. She can name 5/5, repeat 5/5, and follow commands 5/5. Cranial nerve exam normal 2-77. Tongue was midline. Motor exam revealed no focal weakness. Tone was normal. Sensory normal to light touch in all 4 extremities. Coordination with normal finger- nose-finger bilaterally. IMPRESSION AND PLAN: 1. Acute mental status changes, resolved. Overall, her history is most consistent with a brief toxic encephalopathy, likely from sedating medications, which has now resolved. It is reassuring that her head CT is negative, and that she is clinically resolved from her decreased mental status yesterday. At this point, I do not have further recommendations. We will continue to follow as needed with this very pleasant patient. Please do not hesitate to call if there are any questions or changes in neurologic status with this patient. Thank you for the consultation. Fifty total minutes floor time reviewing the patient's extensive inpatient medical records, neuro imaging, direct counseling with the patient and her daughters, and coordination of care. /[id number]/MODL MTDD
--- NOTE | 2018-01-05 14:07 | SOAPPROG ---
THANH Progress Note Assessment/Plan: 1. PEA - Pt presented with PEA. Pt developed a perfusing rhythm post intubation. Suspect secondary to hypoxemia. 2. ACS - Pt was found to have a mild troponin elevation in the setting of PEA. EKG demonstrated dynamic ST and T changes. Pt was taken to the cardiac catheterization laboratory were she was found to have reese 3 flow in all vessels but was noted to have high grade disease involving the RCA and diagonal arteries. Patient was treated with PCI of her RCA. Troponin has trended down. Suspect supply demand miss match as opposed to a primary event. --> Continue asa and plavix --> Continue coreg and lisinopril 3. A-fib - Pt presented to the ER in sinus rhythm. She went into A-fib in the setting of acute stress. She converted to NSR on 01/01 on amiodarone. Pt does not have a previous history of A-fib. Suspect situational. Currently anticoagulated with lovenox. --> Continue coreg 4. Cardiomyopathy - Pt has a CM with basilar hyperkinesia and mid/ apical hypokinesia. This does not fit her coronary anatomy. No history of previous [place]. suspect stress induced. --> Continue coreg --> Increase lisinopril to 10 mg daily --> Repeat echocardiogram prior to discharge 5. COPD - Pt has a history of severe COPD 6. Hyperlipidemia - LDL is 85. Goal is less than 70. --> Continue lipitor 20 mg daily --> FLP and LFTs in 3 months. 7. Decreased mental status - Resolved Subjective: Pt more alert today limited ambulation + edema No chest pain Objective: Vital Signs Temp Pulse Resp BP Pulse Ox 36.9 C 94 15 162/83 H 88 L 01/04/18 20:00 01/05/18 09:27 01/05/18 06:00 01/05/18 09:28 01/05/18 12:36 Laboratory Results 01/05/18 04:50 01/05/18 04:50 01/04/18 01/05/18 01/06/18 05:59 05:59 05:59 Intake Total 500 785 Output Total 625 505 400 Balance -125 280 -400 PT 15.4 SEC (12.0-15.0) H 01/02/18 03:50 INR 1.20 (0.83-1.16) H 01/02/18 03:50 Physical Exam - Physical Exam General Appearance: alert Respiratory: other (decreased BS B) Cardiac/Chest: regular rate, rhythm Extremities: pedal edema Neuro/Psych: alert ICD10 Worksheet Patient Problems: Problems Problem Status Onset COPD (chronic obstructive pulmonary disease) Acute Cardiopulmonary arrest Acute Elevated troponin Acute Rib fracture Acute Sternal fracture Acute
--- NOTE | 2018-01-05 14:25 | HOSPPROG ---
Hospitalist Progress Note Assessment/Plan: 72 y/o female new to my care 01/05/18 # PEA arrest - suspect d/t hypoxia; s/p short course of HACA (stopped early d/t weak indication) # CAD s/p PCI to RCA- type II NSTEMI - was unlikely the primary event - asa/plavix - start lipitor soon # encephalopathy (improving) -head ct reviewed -neuro consult pending # DVT - likely d/t thermaguard - cont lovenox, and transition upon dc to PO # cardiomyopathy with WMA not correlating to her coronary more suggestive of stress CM - lisinopril; cont coreg # VT during cath - s/p amiodarone, currently on coreg # a-fib - currently in NSR - cont coreg (off amiodarone) # respiratory depression and acute CO2 retention d/t fentanyl - - resolved after narcan, stable today # COPD with acute exacerbation - cont steroids IV today - inhalers per pulm # acute hypoxic and hypercapnic resp failure - extubated yesterday - overall much improved # sternal and rib fractures - d/t CPR - will assess her pain level when more alert dispo: Transfer to PCU will likely need rehab given that she is visiting from [place] Subjective: No chest pain or shortness of breath. improving confusion today. improving rib pain Objective: Vital Signs Temp Pulse Resp BP Pulse Ox 36.9 C 94 15 162/83 H 88 L 01/04/18 20:00 01/05/18 09:27 01/05/18 06:00 01/05/18 09:28 01/05/18 12:36 Laboratory Results 01/05/18 04:50 01/05/18 04:50 01/04/18 01/05/18 01/06/18 05:59 05:59 05:59 Intake Total 500 785 Output Total 625 505 400 Balance -125 280 -400 PT 15.4 SEC (12.0-15.0) H 01/02/18 03:50 INR 1.20 (0.83-1.16) H 01/02/18 03:50 - Physical Exam Constitutional: no apparent distress, appears nourished, not in pain Cardiovascular: regular rate and rhythym, no murmur, rub, or gallop Respiratory: no respiratory distress, no rales or rhonchi, clear to auscultation Gastrointestinal: normoactive bowel sounds, soft, non-tender abdomen, no palpable masses Skin: no rashes or abrasions, no fluctuance, no induration Neurologic: AAOx3, sensation intact bilaterally ICD10 Worksheet Patient Problems: Problems Problem Status Onset Cardiopulmonary arrest Acute Elevated troponin Acute Rib fracture Acute Sternal fracture Acute COPD (chronic obstructive pulmonary disease) Acute
--- NOTE | 2018-01-05 16:30 | ASMTCMCOM ---
CM Note CM Note Notes: Per Dr. Crain patient is stable for transport. However, he will talk to family in rounds tomorrow morning to determine air transport home. Subha with [facility] ([facility]) called to say patient is eligible to be flown home to [facility] and admitted there. It has to be inpatient to inpatient, so when she arrives home in [place] she would be admitted to their hospital for further treatment. If patient is ready for d/c home, she would not be eligible. The family is hoping to fly her home over the weekend, inpatient to inpatient. Subha's number is [phone]. The weekend number is [phone], ask for Rab[facility]. There will need to be a Dr to and that number is [phone]. Subha says they make all the arrangements but need to coordinate with the CM here. CM will follow. Date Signed: 01/05/2018 04:29 PM Electronically Signed By:Mihaela Lance LCSW
[2018-01-05] MEDS ORDERED: LIDOCAINE 4%/MENTHOL 1% PATCH TD PRN (16:42)
[2018-01-05] MEDS: ASPIRIN 325 MG TAB PO SCH (19:58)
[2018-01-05] MEDS: CLOPIDOGREL BISULFATE 75 MG TAB PO SCH (19:58)
[2018-01-06] MEDS: ENOXAPARIN 60 MG/0.6 ML SYR SC SCH ×2 (05:48→17:24)
[2018-01-06] MEDS: ALBUTEROL 3 ML DEYVIAL IH PRN (05:56)
[2018-01-06] MEDS: TIOTROPIUM INHALER 18 MCG/DOSE 5 DOSE/MDI IH SCH (09:24)
[2018-01-06] MEDS: FLUTICASONE/SALMETER 250/50MCG DISKUS IH SCH ×2 (09:30→21:06)
[2018-01-06] MEDS: PANTOPRAZOLE SODIUM 40 MG VIAL IVP SCH (09:39)
[2018-01-06] MEDS: CARVEDILOL 3.125 MG TAB PO SCH ×2 (09:39→18:13)
[2018-01-06] MEDS: predniSONE 20 MG TAB PO SCH (09:39)
[2018-01-06] MEDS: LISINOPRIL 10 MG TAB PO SCH (09:39)
[2018-01-06] MEDS: SENNOSIDES/DOCUSATE SODIUM TAB PO SCH ×2 (10:00→21:32)
--- NOTE | 2018-01-06 10:29 | ASMTCMCOM ---
CM Note CM Note Notes: Patient chart reviewed. Discussed with MD. Patient felt to be progressing to point that physician feels patient is near rehab standpoint and admission to [facility] not medically indicated at this point. Family has been given information on [facility] and [facility]. They are going to tour them this morning. Referrals placed in allscripts. It is the opinion of the physician that the patient would benefit from rehab. She may be ready to discharge today. CM to follow. Plan rehab. Date Signed: 01/06/2018 10:28 AM Electronically Signed By:Lindsey Mack RN
--- NOTE | 2018-01-06 11:08 | PDCARPN ---
Cardiology Progress Note Chief Complaint: No cardiovascular complaints Assessment/Plan: Assessment: Patient is a 72 y/o female with past history remarkable for asthma versus COPD, who presented to [facility] ER with PEA/arrest (uncertain etiology). After intubation , a perfusing rhythm was obtained. Patient was taken to the cardiac geoscience laboratory technician urgently after ECG changes as well as mild troponin elevation were noted at presentation. Critical CAD was appreciated to the RCA (and PCI was performed) and diagonal vessel (no intervention was performed) as well as significant reduction in systolic function was noted (30-35%). Atrial fibrillation was also noted in the acute setting, and Amiodarone therapy was implemented, with conversion back to normal sinus rhythm achieved. Today, the patient is doing well. No active cardiovascular complaints. Placement in SNF is pending ( family is looking for facility today). Medical management has been very well tolerated by the patient. Some mental "fog" continues to be noted, but scans ( CT of head) have not revealed any pathology. Plan: (1) Would continue therapy on ASA and Plavix given the newly placed stent, and knowledge of residual disease to LAD branch vessel (2) Would continue therapy on Coreg and Zestril for newly noted LV suppression in the setting of CAD s/p PCI (3) Statins should be added in the near future (hold was implemented likely secondary to elevation in LFTs that were noted in the acute setting) - would arrange for outpatient reassessment of LFT and cholesterol in next week (4) We will get a limited echocardiogram today to determine what ER is prior to discharge - would also arrange for patient to be seen by cardiology in the outpatient setting within one to two weeks - - aware that the patient is not from [place], but with her in SNF, we would like to see her prior to heading home (if possible) (5) Patient may need to be on oxygen (given the event and the history of tobacco use/COPD) - furthermore, we are at [facility] emergency room and her baseline oxygen sat might be impacted by this fact as well (6) Patient will need to establish with cardiology at home (in [place]) given the events that have transpired here in [place] Subjective: No cardiovascular complaints at present. Patient is sitting up in chair. Reviewed/Discussed With: hospitalist Objective: Vital Signs (8 Hrs) Temp Pulse Resp BP Pulse Ox 01/06/18 09:31 77 96 01/06/18 08:39 91 L 01/06/18 08:00 36.5 C 78 17 101/53 L 96 01/06/18 05:56 76 16 94 01/06/18 03:45 36.9 C 74 16 129/71 H 96 Intake/Output (24 Hrs) 01/05/18 01/06/18 01/07/18 05:59 05:59 05:59 Intake Total 785 150 Output Total 505 400 Balance 280 -250 Intake: Oral (ml) 25 150 IV Intake (ml) 675 Tube Flush (ml) 85 Output: Urine (ml) 500 400 Bedside Commode 500 400 NG Tube Output (ml) 5 Left Naris 5 Other: Intake Quantity Yes Sufficient Number of Voids Bedside Commode 1 1 Toilet 1 Result Diagrams: 01/05/18 04:50 01/05/18 04:50 Telemetry: Normal sinus rhythm at 77 bpm - Physical Exam Constitutional: WDWN, healthy appearing, no apparent distress Eyes: PERRL, EOMI Ears, Nose, Mouth, Throat: moist mucous membranes Cardiovascular: regular rate and rhythm, no murmurs, no rubs, no gallops, pulses symmetric bilat, No jugular vein distention Peripheral Pulses: 2+: dorsalis-pedis (R), dorsalis-pedis (L) Respiratory: no crackles, no wheezes, reduced air movement, expiratory wheeze Gastrointestinal: normoactive bowel sounds Skin: no edema Musculoskeletal: no muscular tenderness Neurologic: AAOx3, CN II-XII grossly intact Psychiatric: cooperative, interactive, following commands, encephalopathic ( slightly (I do know know the patient's baseline mental status)) ICD10 Worksheet Patient Problems: Problems Problem Status Onset COPD (chronic obstructive pulmonary disease) Acute Cardiopulmonary arrest Acute Elevated troponin Acute Rib fracture Acute Sternal fracture Acute
--- NOTE | 2018-01-06 11:52 | HOSPPROG ---
Hospitalist Progress Note Assessment/Plan: 72 y/o female new to my care 01/05/18 # PEA arrest - suspect d/t hypoxia; s/p short course of HACA (stopped early d/t weak indication) # CAD s/p PCI to RCA- type II NSTEMI - was unlikely the primary event - asa/plavix - start lipitor 10mg # encephalopathy (improving) -head ct reviewed -neuro consult pending # DVT - likely d/t thermaguard - cont lovenox, and transition upon dc to PO # cardiomyopathy with WMA not correlating to her coronary more suggestive of stress CM - lisinopril; cont coreg # VT during cath - s/p amiodarone, currently on coreg # a-fib - currently in NSR - cont coreg (off amiodarone) # respiratory depression and acute CO2 retention d/t fentanyl - - resolved after narcan, stable today # COPD with acute exacerbation - will taper prednisone from 60mg to 40mg starting 01/07 - inhalers per pulm # acute hypoxic and hypercapnic resp failure - extubated yesterday - overall much improved # sternal and rib fractures - d/t CPR - will assess her pain level when more alert dispo: Will plan to transfer to rehab prior to traveling back to [place] Subjective: No shortness of breath. no chest pain. feeling stronger today Objective: Vital Signs Temp Pulse Resp BP Pulse Ox 37.0 C 75 19 128/69 H 98 01/06/18 11:19 01/06/18 11:19 01/06/18 11:19 01/06/18 11:19 01/06/18 11:19 Laboratory Results 01/05/18 04:50 01/05/18 04:50 01/05/18 01/06/18 01/07/18 05:59 05:59 05:59 Intake Total 785 150 Output Total 505 400 Balance 280 -250 PT 15.4 SEC (12.0-15.0) H 01/02/18 03:50 INR 1.20 (0.83-1.16) H 01/02/18 03:50 - Physical Exam Constitutional: no apparent distress, appears nourished, not in pain Cardiovascular: regular rate and rhythym, no murmur, rub, or gallop Respiratory: no respiratory distress, no rales or rhonchi, clear to auscultation Gastrointestinal: normoactive bowel sounds, soft, non-tender abdomen, no palpable masses Neurologic: AAOx3, sensation intact bilaterally ICD10 Worksheet Patient Problems: Problems Problem Status Onset Cardiopulmonary arrest Acute Elevated troponin Acute Rib fracture Acute Sternal fracture Acute COPD (chronic obstructive pulmonary disease) Acute
[2018-01-06] MEDS ORDERED: predniSONE 20 MG TAB PO SCH (11:53)
--- NOTE | 2018-01-06 12:40 | ECHO ---
[email or web address] [address] [address] Main: [phone] Fax: Transthoracic Echocardiogram Name: EZIO BRIAN MR#: [id number] Study Date: 01/06/2018 Study Time: 11:51 AM Date of : 1945 Age: 72 year(s) Height: 162.6 cm (64 in.) Weight: 47.17 kg (104 lb.) BSA: 1.48 m2 Gender: Female Examination: Limited Echo Indication: Post Cardiac Arrest Image Quality: Contrast: Requested by: Bernard Ledezma BP: 128 mmHg/68 mmHg Heart Rate: Rhythm: Indication: Post Cardiac Arrest Procedure Staff [employer] Tree [employer]uner: Mao Sullivan RDCS Reading Physician: Homero Haro MD Requesting Provider: [employer] Pruner: Mao Sullivan RDCS Reading Physician: Requesting Provider: Conclusions: Normal size left ventricle. Normal global systolic LV function. EF is 64 %. No regional wall motion abnormality. This is a limited echo to evaluate LV function post cardiac arrest. The previous exam the EF was estimated at 25-30%. Compared to the previous exam the EF has improved to normal LV function estimated at 65%. Measurements: Chambers Valvular Assessment AV/MV Valvular Assessment TV/PV Normal Normal Normal Name Value Range Name Value Range Name Value Range IVSd (2D): 0.8 cm (0.6 cm-1.1 cm) LVDd (2D): 3.1 cm (3.9 cm-5.3 cm) LVDs (2D): 1.9 cm (2.1 cm-4 cm) LVPWd (2D): 1.0 cm ( - ) LVEF (MOD4): 64 % (>=55 %) Continued Measurements: Findings: Left Ventricle: Patient: EZIO BRIAN Study Date: 01/06/2018 Page 1 of 2 11:51 AM Normal size left ventricle. Normal global systolic LV function. EF is 64 %. No regional wall motion abnormality. Exam Comments: This is a limited echo to evaluate LV function post cardiac arrest. The previous exam the EF was estimated at 25-30%. Compared to the previous exam the EF has improved to normal LV function estimated at 65%. (No Signature Object) Patient: EZIO BRIAN Study Date: 01/06/2018 Page 2 of 2 11:51 AM [id number]
[2018-01-06] MEDS: ATORVASTATIN CALCIUM 10 MG TAB PO SCH (13:30)
[2018-01-06] MEDS: ASPIRIN 325 MG TAB PO SCH (21:31)
[2018-01-06] MEDS: CLOPIDOGREL BISULFATE 75 MG TAB PO SCH (21:31)
[2018-01-07] MEDS: ACETAMINOPHEN 325 MG TAB PO PRN ×2 (00:34→22:50)
[2018-01-07] MEDS: ENOXAPARIN 60 MG/0.6 ML SYR SC SCH (05:34)
[2018-01-07] MEDS ORDERED: CALCIUM GLUCONATE 1 GM in D5W 50 ML IV ONE (05:44)
[2018-01-07] MEDS: PANTOPRAZOLE SODIUM 40 MG TAB PO SCH (08:48)
[2018-01-07] MEDS: LISINOPRIL 10 MG TAB PO SCH (08:48)
[2018-01-07] MEDS: ATORVASTATIN CALCIUM 10 MG TAB PO SCH (08:48)
[2018-01-07] MEDS: CARVEDILOL 3.125 MG TAB PO SCH ×2 (08:48→18:39)
[2018-01-07] MEDS: FLUTICASONE/SALMETER 250/50MCG DISKUS IH SCH ×2 (08:57→20:57)
[2018-01-07] MEDS: TIOTROPIUM INHALER 18 MCG/DOSE 5 DOSE/MDI IH SCH (08:57)
[2018-01-07] MEDS ORDERED: predniSONE 20 MG TAB PO SCH (09:00)
--- NOTE | 2018-01-07 09:42 | SOAPPROG ---
THANH Progress Note Assessment/Plan: 1. PEA - Pt presented with PEA. Pt developed a perfusing rhythm post intubation. Suspect secondary to hypoxemia. 2. ACS - Pt was found to have a mild troponin elevation in the setting of PEA. EKG demonstrated dynamic ST and T changes. Pt was taken to the cardiac catheterization laboratory were she was found to have reese 3 flow in all vessels but was noted to have high grade disease involving the RCA and diagonal arteries. Patient was treated with PCI of her RCA. Troponin has trended down. Suspect supply demand miss match as opposed to a primary event. --> Continue asa and plavix --> Continue coreg and lisinopril 3. A-fib - Pt presented to the ER in sinus rhythm. She went into A-fib in the setting of acute stress. She converted to NSR on 01/01 on amiodarone. Pt does not have a previous history of A-fib. Suspect situational. Currently anticoagulated with lovenox. --> Continue coreg 4. Cardiomyopathy - Pt has a CM with basilar hyperkinesia and mid/ apical hypokinesia. This does not fit her coronary anatomy. No history of previous SD. suspect stress induced. Echocardiogram on 01/06 demonstrated normal LVEF. --> Continue coreg and lisinopril 5. COPD - Pt has a history of severe COPD 6. Hyperlipidemia - LDL is 85. Goal is less than 70. --> Continue lipitor 10 mg daily --> FLP and LFTs in 3 months. 01/07/18 09:41 Subjective: No chest pain No orthopnea or PND ambulating to bathroom Objective: Vital Signs Temp Pulse Resp BP Pulse Ox 36.8 C 70 18 152/78 H 93 01/07/18 07:16 01/07/18 08:57 01/07/18 08:57 01/07/18 07:16 01/07/18 08:57 Laboratory Results 01/05/18 04:50 01/05/18 04:50 01/06/18 01/07/18 01/08/18 05:59 05:59 05:59 Intake Total 150 500 60 Output Total 400 Balance -250 500 60 PT 15.4 SEC (12.0-15.0) H 01/02/18 03:50 INR 1.20 (0.83-1.16) H 01/02/18 03:50 Physical Exam - Physical Exam General Appearance: alert, no apparent distress Respiratory: other (deminished breath sounds) Cardiac/Chest: regular rate, rhythm Abdomen: non-tender, soft Extremities: pedal edema Neuro/Psych: alert, oriented x 3 ICD10 Worksheet Patient Problems: Problems Problem Status Onset COPD (chronic obstructive pulmonary disease) Acute Cardiopulmonary arrest Acute Elevated troponin Acute Rib fracture Acute Sternal fracture Acute
--- NOTE | 2018-01-07 09:56 | PDIAF ---
- Diagnosis Diagnosis: Cardiac arrest due to acs s/p pci Code Status: Full Code - Medication Management Discharge Medications: Medications to Continue on Transfer Albuterol [Ventolin Hfa Inhaler] 200 puffs IH Q4H PRN 12/31/17 [Last Taken Unknown] Fluticasone/Salmeter 250/50Mcg [Advair 250/50 (*)] 1 puffs IH BID 01/01/18 [ Last Taken Unknown] Tiotropium Inhaler [Spiriva Inhaler (RX)] 5 inh IH DAILY 01/01/18 [Last Taken Unknown] Aspirin EC [Aspirin EC 81 mg (*)] 81 mg PO DAILY #100 tab 01/07/18 [Last Taken Unknown] Atorvastatin Calcium [Lipitor 10 mg (*)] 10 mg PO DAILY #30 tab 01/07/18 [Last Taken Unknown] Carvedilol [Coreg (*)] 3.125 mg PO BIDMEAL #60 tab 01/07/18 [Last Taken Unknown] Clopidogrel Bisulfate [Plavix (*)] 75 mg PO HS #30 tab 01/07/18 [Last Taken Unknown] Lisinopril [Zestril 10 mg (*)] 10 mg PO DAILY #30 tab 01/07/18 [Last Taken Unknown] Discharge Medications: Refer to the Discharge Home Medication list for PRN reason. - Orders Diet Recommendation: no restrictions on diet Diet Texture: Regular Texture Diet, Thin Liquids, Meds Whole in Puree Additional Instructions: f/u with cardiology as directed upon returning back to [place]. LDL goal <70. lipid panel in 3 months - Follow Up Care Current Providers and Referrals: NONE *PRIMARY CARE P,. [Primary Care Provider] -
--- NOTE | 2018-01-07 10:07 | ASMTLACE ---
LACE Length of stay for Answers: 4-6 days current admission Acuity / Level of Answers: Yes Care: Did the patient have an inpatient admission? Comorbidities - select Answers: Chronic pulmonary disease all that apply # of Emergency department Answers: 1-2 visits in the last 6 months Score: 10 Date Signed: 01/07/2018 10:07 AM Electronically Signed By:Lindsey Mack RN
--- NOTE | 2018-01-07 10:14 | ASMTCMCOM ---
CM Note CM Note Notes: Patient has been medically cleared for discharge to SNF. Final orders to [facility] via allscripts. Call to [facility] to arrange transport of pt via wheelchair van with oxygen. IM signed. Family aware. Will have RN call report to [facility]. CM available should other needs arise. Plan: To SNF rehab Date Signed: 01/07/2018 10:13 AM Electronically Signed By:Lindsey Mack RN
[2018-01-07] MEDS: SENNOSIDES/DOCUSATE SODIUM TAB PO SCH ×2 (10:15→21:26)
--- NOTE | 2018-01-07 10:32 | GDS ---
[f rep st] DISCHARGE SUMMARY DISCHARGE DIAGNOSES: 1. Pulseless electrical activity/cardiac arrest. 2. Coronary artery disease, status post percutaneous coronary intervention to the right coronary art irena disease after being found to have a type 2 non-ST elevation myocardial infarction. 3. Acute hypoxemic respiratory failure due to chronic obstructive pulmonary disease exacerbation. 4. Resolved encephalopathy. 5. Deep venous thrombosis. 6. Cardiomyopathy with wall motion abnormality, that has since resolved. Most likely due to stress cardiomyopathy. 7. Resolved atrial fibrillation. 8. Chronic obstructive pulmonary disease exacerbation. 9. Sternal and rib fractures due to cardiopulmonary resuscitation. CONSULTANTS: [facility]; Dr. Crain, pulmonary critical care; Dr. Ashwin Becerra, neurology . HOSPITAL COURSE: 1. PEA arrest: The patient presented to the hospital on 12/31/2017 and was admitted in the early mo rning hours of the after she presented with a cardiac arrest. HACA protocol was initiated. She was transferred to the intensive care unit. She was taken to the scientific laboratory supervisor at 3 in the morning on , where she underwent a successful PCI of a high-grade mid right coronary artery lesion with a drug-eluting stent. She was in AFib and was successfully cardioverted. Patient was then recovered i n the intensive care unit. Postprocedure, she has continued to do well. She was thought to have a C OPD exacerbation and was treated initially with IV Solu-Medrol, which has since been changed to predn isone. On day of discharge, she is no longer wheezing and will not be continued on prednisone. 2. DVT: Lower extremity Doppler was done on the morning of 01/03, which showed a short-segment nono cclusive DVT in the right common femoral vein. She has been treated with Lovenox. At this point, we will plan to discharge the patient on Eliquis. Repeat lower extremity ultrasound should be done in the next few weeks to see if this clot still exists. PHYSICAL EXAMINATION: VITAL SIGNS: On day of discharge, blood pressure 152/78, pulse 74, respirator y rate 15, O2 sat 99% on 3 L, temperature afebrile. GENERAL: No acute distress. HEART: S1, S2. L UNGS: Clear. ABDOMEN: Soft. EXTREMITIES: No edema next. PERTINENT LABS AND STUDIES DONE THIS HOSPITAL STAY: CT angio of the chest on 12/31/2017: Refer to [facility]. Cardiac catheterization done 01/01/2018: Refer to report. Echocardiogram done on admission revealed ejection fraction of 35% with mid inferolateral hypokinesis . Repeat echocardiogram done on the day prior to discharge shows an ejection fraction that has impro estela to 65%, with no significant valvular disease. DISCHARGE MEDICATIONS: Please refer to discharge medication reconciliation for full details. Below is a preliminary list of new medications: 1. Aspirin 81 mg daily. 2. Lipitor 10 mg daily. 3. Coreg 3.125 mg p.o. b.i.d. 4. Plavix 75 mg daily. 5. Zestril 10 mg daily. 6. Eliquis 10 mg p.o. b.i.d. for 7 days and then 5 mg p.o. b.i.d. thereafter. All other home medications were continued at usual home dosages. DISCHARGE INSTRUCTIONS: The patient will be transferred to a custodial facility for further re habilitation. Once again, she will be discharged on Eliquis due to this small nonocclusive DVT seen on ultrasound on 01/03/2018. I would recommend anticoagulation for a minimum of 3 months. Another o ption would be to repeat another ultrasound in the next few weeks and consider stopping anticoagulati on with close monitoring. The patient has been treated with high-dose steroids, which will be stoppe d on discharge. If her COPD worsens, would recommend resuming prednisone at 40 mg daily and tapering down. Greater than 30 minutes were spent on the discharge of this patient. /[id number]/MODL
--- NOTE | 2018-01-07 14:06 | HOSPPROG ---
Hospitalist Progress Note Assessment/Plan: 72 y/o female new to my care 01/05/18 # PEA arrest - suspect d/t hypoxia; s/p short course of HACA (stopped early d/t weak indication) # CAD s/p PCI to RCA- type II NSTEMI - was unlikely the primary event - asa/plavix - start lipitor 10mg # encephalopathy (improving) -head ct reviewed -neuro consult pending # DVT - likely d/t thermaguard - start eliquis now # cardiomyopathy with WMA not correlating to her coronary more suggestive of stress CM - lisinopril; cont coreg # [place] during cath - s/p amiodarone, currently on coreg # a-fib - currently in NSR - cont coreg (off amiodarone) # respiratory depression and acute CO2 retention d/t fentanyl - - resolved after narcan, stable today # COPD with acute exacerbation - will taper prednisone from 60mg to 40mg starting 01/07 - inhalers per pulm # acute hypoxic and hypercapnic resp failure - extubated yesterday - overall much improved # sternal and rib fractures - d/t CPR - will assess her pain level when more alert dispo: Will plan to transfer to rehab prior to traveling back to [place] Subjective: reports have nausea and some bleeding from groin. was initially going to dc to snf today, but not feeling up to it. Objective: Vital Signs Temp Pulse Resp BP Pulse Ox 36.8 C 83 15 104/70 94 01/07/18 07:16 01/07/18 12:55 01/07/18 12:55 01/07/18 12:55 01/07/18 12:55 Laboratory Results 01/05/18 04:50 01/05/18 04:50 01/06/18 01/07/18 01/08/18 05:59 05:59 05:59 Intake Total 150 500 60 Output Total 400 Balance -250 500 60 PT 15.4 SEC (12.0-15.0) H 01/02/18 03:50 INR 1.20 (0.83-1.16) H 01/02/18 03:50 - Physical Exam Constitutional: no apparent distress, appears nourished, not in pain Cardiovascular: regular rate and rhythym, no murmur, rub, or gallop Respiratory: no respiratory distress, no rales or rhonchi, clear to auscultation Gastrointestinal: normoactive bowel sounds, soft, non-tender abdomen, no palpable masses Neurologic: AAOx3, sensation intact bilaterally ICD10 Worksheet Patient Problems: Problems Problem Status Onset Cardiopulmonary arrest Acute Elevated troponin Acute Rib fracture Acute Sternal fracture Acute COPD (chronic obstructive pulmonary disease) Acute
--- NOTE | 2018-01-07 14:41 | ASMTCMCOM ---
CM Note CM Note Notes: Patient discharge canceled due to acute onset of abdominal pain. Call to [facility] to alert them of change. Per admissions there they are on a tight bed situation and we will need to assess for bed availability in am. CM to follow. Date Signed: 01/07/2018 02:41 PM Electronically Signed By:Lindsey Mack RN
[2018-01-07] MEDS: NS 1,000 ML IV SCH (15:34)
[2018-01-07 18:59] LABS: PLATELET COUNT 185 10^3/uL (150-400)
[2018-01-07] MEDS: APIXABAN 5 MG TAB PO SCH (20:47)
[2018-01-07] MEDS: CLOPIDOGREL BISULFATE 75 MG TAB PO SCH (20:48)
[2018-01-07] MEDS: ASPIRIN 325 MG TAB PO SCH (20:48)
[2018-01-08] MEDS: APIXABAN 5 MG TAB PO SCH ×2 (08:01→21:05)
[2018-01-08] MEDS: ATORVASTATIN CALCIUM 10 MG TAB PO SCH (08:01)
[2018-01-08] MEDS: LISINOPRIL 10 MG TAB PO SCH (08:01)
[2018-01-08] MEDS: ACETAMINOPHEN 325 MG TAB PO PRN ×2 (08:01→21:04)
[2018-01-08] MEDS: CARVEDILOL 3.125 MG TAB PO SCH ×2 (08:01→17:31)
[2018-01-08] MEDS: PANTOPRAZOLE SODIUM 40 MG TAB PO SCH (08:02)
[2018-01-08] MEDS: FLUTICASONE/SALMETER 250/50MCG DISKUS IH SCH ×2 (08:49→20:44)
[2018-01-08] MEDS: TIOTROPIUM INHALER 18 MCG/DOSE 5 DOSE/MDI IH SCH (08:50)
[2018-01-08 09:43] LABS: PLATELET COUNT 169 10^3/uL (150-400)
[2018-01-08] MEDS: SENNOSIDES/DOCUSATE SODIUM TAB PO SCH ×2 (10:04→21:05)
[2018-01-08] MEDS: NS 1,000 ML IV SCH ×2 (11:48→21:15)
--- NOTE | 2018-01-08 12:07 | ASMTCMCOM ---
CM Note CM Note Notes: 01/08/2018 Case Management Note Pt requiring further work up d/t changes in her H & H. [facility] Case Management to follow. Date Signed: 01/08/2018 12:06 PM Electronically Signed By:Karla Clemente RN
--- NOTE | 2018-01-08 14:21 | HOSPPROG ---
Hospitalist Progress Note Assessment/Plan: 72 y/o female new to my care 01/05/18 planned for dc on 01/07 but pt reported some groin swelling and nausea. now with #acute blood loss anemia suspect hematoma from groin line on dual antiplatelet therapy + eliquis (high risk for bleeding) -will repeat lower ext doppler to eval for clot -cont to monitor h/h # PEA arrest - suspect d/t hypoxia; s/p short course of HACA (stopped early d/t weak indication) # CAD s/p PCI to RCA- type II NSTEMI - was unlikely the primary event - asa/plavix - continue lipitor 10mg # encephalopathy (resolved) -head ct reviewed -neuro consult pending # DVT - likely d/t thermaguard - start eliquis now # cardiomyopathy with WMA not correlating to her coronary more suggestive of stress CM - lisinopril; cont coreg # [place] during cath - s/p amiodarone, currently on coreg # a-fib - currently in NSR - cont coreg (off amiodarone) # respiratory depression and acute CO2 retention d/t fentanyl - - resolved after narcan, stable today # COPD with acute exacerbation - will taper prednisone from 60mg to 40mg starting 01/07 - inhalers per pulm # acute hypoxic and hypercapnic resp failure - extubated yesterday - overall much improved # sternal and rib fractures - d/t CPR - will assess her pain level when more alert dispo: Will plan to transfer to rehab prior to traveling back to [place] Subjective: feels better today. still with some groin discomfort. no chest pain or shortness of breath Objective: Vital Signs Temp Pulse Resp BP Pulse Ox 36.8 C 73 14 110/53 L 99 01/08/18 11:17 01/08/18 11:17 01/08/18 11:17 01/08/18 11:17 01/08/18 11:17 Laboratory Results 01/08/18 09:36 01/07/18 18:51 01/07/18 01/08/18 01/09/18 05:59 05:59 05:59 Intake Total 500 384 Output Total 400 500 Balance 500 -16 -500 PT 15.4 SEC (12.0-15.0) H 01/02/18 03:50 INR 1.20 (0.83-1.16) H 01/02/18 03:50 - Physical Exam Constitutional: no apparent distress, appears nourished, not in pain Cardiovascular: regular rate and rhythym, no murmur, rub, or gallop Respiratory: no respiratory distress, no rales or rhonchi, clear to auscultation Gastrointestinal: normoactive bowel sounds, soft, non-tender abdomen, no palpable masses Neurologic: AAOx3, CN II-XII Intact, No facial droop ICD10 Worksheet Patient Problems: Problems Problem Status Onset Cardiopulmonary arrest Acute Elevated troponin Acute Rib fracture Acute Sternal fracture Acute COPD (chronic obstructive pulmonary disease) Acute
--- NOTE | 2018-01-08 15:17 | PDCARPN ---
Cardiology Progress Note Chief Complaint: Arrival to ED --PEA Assessment/Plan: Assessment: 1. PEA - Arrival to ED with PEA. Perfusing rhythm post intubation. Suspect secondary to hypoxemia. 2. ACS - Pt was found to have a mild troponin elevation in the setting of PEA. EKG showed ST - T changes. Cardiac angiogram showed CASEY 3 flow in all vessels , with high grade disease involving the RCA and diagonal arteries. PCI of RCA with JAIR. Troponin has trended down. Plan to continue asa and plavix for antiplatelet therapy, and Continue Coreg and Lisinopril. 3. A-Fib - Pt presented to the ER in sinus rhythm. She went into A-fib in the setting of acute stress. She converted to NSR on 01/01 on amiodarone. Pt does not have a previous history of A-fib. Likely situational A Fib related to the added stress. Currently on Coreg for rate management. 4. Cardiomyopathy - Pt has a CM with basilar hyperkinesia and mid/ apical hypokinesia. This does not fit her coronary anatomy. No history of previous GA. suspect stress induced. Echocardiogram on 01/06 demonstrated normal LVEF. will Continue coreg and lisinopril for management. 5. COPD - Pt has a history of severe COPD 6. Hyperlipidemia - LDL is 85. Goal is less than 70. She will continue lipitor 10 mg daily She should get FLP and LFTs in 3 months. Plan: Stable for discharge. Groin precautions for 7 days. Follow up with Dr Vlilarreal in 7 to 10 days. Reviewed/Discussed With: hospitalist, multidisciplinary team Time Spent With Patient: 20 minutes Objective: Vital Signs (8 Hrs) Temp Pulse Resp BP Pulse Ox 01/08/18 11:17 36.8 C 73 14 110/53 L 99 01/08/18 08:52 80 90 L 01/08/18 07:41 36.6 C 75 18 132/67 H 95 Intake/Output (24 Hrs) 01/07/18 01/08/18 01/09/18 05:59 05:59 05:59 Intake Total 500 384 Output Total 400 500 Balance 500 -16 -500 Intake: Oral (ml) 500 100 IV Infused (ml) 284 Calcium Gluconate 1 gm In 60 D5w 50 ml @ 120 mls/hr IV ONCE ONE Rx#: [id number] Ns 1,000 ml @ 100 mls/hr 224 IV CONT MERLENE Rx#: [id number] Output: Urine (ml) 400 500 Toilet 400 500 Other: Number of Voids Toilet 1 1 Number of Stools Toilet 1 Result Diagrams: 01/08/18 09:36 01/07/18 18:51 Cardiac Labs: Cardiac Lab Results (72 Hrs) 01/07/18 18:51 Troponin I 0.036 H - Physical Exam Constitutional: no apparent distress Cardiovascular: regular rate and rhythm, no rubs, no gallops, systolic murmur Respiratory: clear to auscultate bilat, no crackles, no wheezes, reduced air movement Skin: no rashes, warm, no edema, other (Roght groin site ecchymotic, with mild tenderness.) Neurologic: AAOx3 Psychiatric: cooperative, interactive ICD10 Worksheet Patient Problems: Problems Problem Status Onset Cardiopulmonary arrest Acute Elevated troponin Acute Rib fracture Acute Sternal fracture Acute COPD (chronic obstructive pulmonary disease) Acute
[2018-01-08] MEDS: NICOTINE 14 MG/24 HR PATCH TD SCH (17:31)
[2018-01-08] MEDS: ASPIRIN 325 MG TAB PO SCH (21:05)
[2018-01-08] MEDS: CLOPIDOGREL BISULFATE 75 MG TAB PO SCH (21:06)
[2018-01-09 04:27] LABS: PLATELET COUNT 154 10^3/uL (150-400)
[2018-01-09] MEDS: NS 1,000 ML IV SCH ×2 (07:30→17:21)
[2018-01-09] MEDS: CARVEDILOL 3.125 MG TAB PO SCH ×2 (08:20→17:21)
[2018-01-09] MEDS: NICOTINE 14 MG/24 HR PATCH TD SCH (08:20)
[2018-01-09] MEDS: LISINOPRIL 10 MG TAB PO SCH (08:20)
[2018-01-09] MEDS: PANTOPRAZOLE SODIUM 40 MG TAB PO SCH (08:20)
[2018-01-09] MEDS: ATORVASTATIN CALCIUM 10 MG TAB PO SCH (08:20)
[2018-01-09] MEDS: SENNOSIDES/DOCUSATE SODIUM TAB PO SCH ×2 (08:25→21:13)
[2018-01-09] MEDS: FLUTICASONE/SALMETER 250/50MCG DISKUS IH SCH ×2 (09:45→20:59)
[2018-01-09] MEDS: TIOTROPIUM INHALER 18 MCG/DOSE 5 DOSE/MDI IH SCH (09:45)
[2018-01-09] MEDS: ALBUTEROL 3 ML DEYVIAL IH PRN (09:51)
[2018-01-09 11:47] LABS: PLATELET COUNT 198 10^3/uL (150-400)
[2018-01-09] MEDS: APIXABAN 5 MG TAB PO SCH ×2 (12:16→20:15)
--- NOTE | 2018-01-09 13:08 | PDCARPN ---
Cardiology Progress Note Assessment/Plan: Assessment: 1. PEA - Arrival to ED with PEA. Perfusing rhythm post intubation. Suspect secondary to hypoxemia. 2. ACS - Pt was found to have a mild troponin elevation in the setting of PEA. EKG showed ST - T changes. Cardiac angiogram showed CASEY 3 flow in all vessels , with high grade disease involving the RCA and diagonal arteries. PCI of RCA with JAIR. Troponin has trended down. Plan to continue asa and plavix for antiplatelet therapy, and Continue Coreg and Lisinopril. 3. A-Fib - Pt presented to the ER in sinus rhythm. She went into A-fib in the setting of acute stress. She converted to NSR on 01/01 on amiodarone. Pt does not have a previous history of A-fib. Likely situational A Fib related to the added stress. Currently on Coreg for rate management. 4. Cardiomyopathy - Pt has a CM with basilar hyperkinesia and mid/ apical hypokinesia. This does not fit her coronary anatomy. No history of previous AL. suspect stress induced. Echocardiogram on 01/06 demonstrated normal LVEF. will Continue coreg and lisinopril for management. 5. COPD - Pt has a history of severe COPD 6. Hyperlipidemia - LDL is 85. Goal is less than 70. She will continue lipitor 10 mg daily She should get FLP and LFTs in 3 months. Plan: Stable for discharge. Groin precautions for 7 days. Follow up with Dr Villarreal in 7 to 10 days. 01/09/18 13:02 She continues to do well from cardiac standpoint. No chest pain, SOB, or dizziness. She remains in RSR. Checked her right groin site again today. Less ecchymotic with no induration. She was not discharged due to her drop in Hbg/HCT which is being worked up. Cardiac plan as above. Will sign off at this time. Contact us should she experience any cardiac abnormalities. Subjective: Feel good up and walking. No dizziness or chest pain. Reviewed/Discussed With: hospitalist, multidisciplinary team Objective: Vital Signs (8 Hrs) Temp Pulse Pulse Pulse Pulse Resp BP 01/09/18 11:59 85 85 78 01/09/18 11:16 36.7 C 83 14 122/51 H 01/09/18 09:56 77 15 01/09/18 07:53 36.9 C 82 14 146/77 H BP BP BP Pulse Ox 01/09/18 11:59 133/68 H 147/70 H 104/72 01/09/18 11:16 94 01/09/18 09:56 95 01/09/18 07:53 95 Intake/Output (24 Hrs) 01/08/18 01/09/18 01/10/18 05:59 05:59 05:59 Intake Total 384 3173 Output Total 400 2350 1200 Balance -16 823 -1200 Intake: Oral (ml) 100 1425 IV Infused (ml) 284 1748 Calcium Gluconate 1 gm In 60 D5w 50 ml @ 120 mls/hr IV ONCE ONE Rx#: [id number] Ns 1,000 ml @ 100 mls/hr 224 1748 IV CONT MERLENE Rx#: [id number] Output: Urine (ml) 400 2350 1200 Toilet 400 2350 1200 Other: Intake Quantity Yes Sufficient Number of Voids Toilet 1 2 Number of Stools Toilet 1 Result Diagrams: 01/09/18 11:38 01/07/18 18:51 Cardiac Labs: Cardiac Lab Results (72 Hrs) 01/07/18 18:51 Troponin I 0.036 H - Physical Exam Constitutional: no apparent distress Cardiovascular: regular rate and rhythm, no murmurs, no rubs Peripheral Pulses: 2+: femoral (R), femoral (L), dorsalis-pedis (R), dorsalis- pedis (L) Respiratory: clear to auscultate bilat, no crackles, no wheezes Skin: warm, no edema (trace) Neurologic: AAOx3 ICD10 Worksheet Patient Problems: Problems Problem Status Onset Cardiopulmonary arrest Acute Elevated troponin Acute Rib fracture Acute Sternal fracture Acute COPD (chronic obstructive pulmonary disease) Acute
[2018-01-09] MEDS: ACETAMINOPHEN 325 MG TAB PO PRN ×2 (14:42→20:15)
--- NOTE | 2018-01-09 14:50 | PDDCSUM ---
Discharge Summary Discharge Summary: DISCHARGE DIAGNOSES: -pulseless electric activity cardiac arrest likely triggered by acute respiratory failure and respiratory or arrest; resuscitation to spontaneous pulse and circulation with CPR -complete neurologic recovery after her arrest -acute COPD exacerbation acute hypoxemic and hypercarbic respiratory failure -coronary artery disease: 70% mid RCA lesion treated with JAIR, mild RCA disease more distally, 50-60% stenosis of proximal circ diagonal, 30-40% proximal circumflex lesion, diffuse LAD disease 30-40%; highest troponin during this hospitalization 0.9 -2 episodes of ventricular tachycardia during coronary interventions requiring cardioversion -myocardial dysfunction initially seen after rest with ejection fraction 30-35% recovered to 65% on repeat echocardiogram -DVT of leg acutely during this hospital stay, started on anticoagulation -pseudoaneurysm with leak at right femoral artery groin access site, status post ultrasound-guided repair successfully -chronic tobacco abuse, with the patient having stopped smoking 1 week before this admission -COPD newly diagnosed at this time, based on symptoms, response to bronchodilators, and severe emphysematous change in upper lobes on CT scan -fractures to ribs and sternum from chest compressions, well tolerated at this time point by patient -acute blood loss anemia from her femoral artery access pseudoaneurysm, stable at this time CONSULTANTS: Dr. Gal Crain of Critical Care pulmonology Dr. Kemp of Cardiology PROCEDURES: Cardiopulmonary resuscitation including endotracheal intubation and mechanical ventilation CT angio of chest showing no evidence of pulmonary embolism, but showing severe emphysematous changes CT scan of head with no acute abnormalities Coronary angiography and drug-eluting stent placement mid right coronary artery Ultrasound based repair of right femoral artery pseudoaneurysm Doppler ultrasound of legs showing DVT in right common femoral vein HOSPITAL COURSE SUMMARY: This patient with no history of heart or lung disease but with chronic smoking traveled from her home in [facility] to [place] to visit family. On the night she got here she begin to have some dyspnea on the following day began more dyspneic. As her family was driving her here to the ER she had more more respiratory difficulty and turn and ashen ellis color according to the family. Upon entering the emergency room the patient was in severe respiratory distress and as she was initially being evaluated suffered cardiopulmonary arrest with pulseless electric activity. She was treated with CPR and had spontaneous return pulse and circulation after few minutes of CPR. She was intubated and placed on mechanical ventilator. A CT angio of chest showed no PE no pneumonia no heart failure. She was taken to cardiac lab where she underwent angiograms showing 70% mid right coronary lesion and milder diffuse disease and 3 vessel territory. A drug-eluting stent was placed in the right coronary. She was placed in the intensive care unit and supported aggressively there. She was able to be extubated. Initially there was some encephalopathy but at this time the patient has complete recovery neurologically. She has severe COPD and is still requiring some oxygen at this time while using inhaled bronchodilators and steroids, however there is no evidence of pneumonia or pulmonary edema and she is on just 2 L of oxygen and ambulating in the hallway. Her initial echocardiogram showed a left ventricular systolic dysfunction with 30-35% ejection fraction. However by the time of her angiography she had a 55% ejection fraction and on the most recent echocardiogram 65% ejection fraction. She has had no significant injury to the kidneys or liver. She does have some injuries to her sternum and ribs but is tolerating these well. She did have significant decrease in her blood counts along with increase in pain in her groin a few days after her resuscitation. Ultrasound showed a pseudoaneurysm with leak and this was repaired by ultrasound-guided procedure. She has been stable since that time. She also did during her hospital say have identification of a right femoral vein DVT when she developed some discomfort there. There was 1 brief episode of atrial fibrillation. Due to her DVT and atrial fibrillation she is currently on anticoagulation. New medications include daily aspirin, daily Plavix, Coreg, lisinopril, Lipitor , albuterol, Advair and Spiriva. She is tolerating all these medicines well at this time. Her acute medical issues all appear reasonably stabilized at this time. However she remains moderately weak. She is walking in the hallway with a walker on 2 L oxygen. It is felt that before trying to return home she will need further rehabilitation and is being transferred to custodial facility for that therapy at this time. Her plan is to attempt to fly back to [facility] when she is able. PENDING TEST RESULTS: None MEDICATION CHANGES: Addition of daily aspirin, Plavix 75 mg, Coreg, lisinopril, Lipitor, albuterol, Advair, and Spiriva FOLLOW-UP PLAN: At this time she is transferred to [facility] for ongoing physical therapy rehabilitation. Following this she will return to home in [facility] and will seek referral to real estate manager and silk snapper through her primary care provider there. I have placed a call to her primary care provider's office to update her and recommend she begin lining up consultations. Is strongly recommended that she be referred to cardiac rehabilitation and pulmonary rehabilitation clinics as well. The patient is aware that she will need to stay on aspirin and Plavix due to her stent, as well as statin therapy. Greater than 35 minutes bedside and care coordination time today
--- NOTE | 2018-01-09 19:47 | HOSPPROG ---
Hospitalist Progress Note Assessment/Plan: DIAGNOSES: #acute blood loss anemia suspect hematoma from groin line on dual antiplatelet therapy + eliquis (high risk for bleeding) -repeat H&H this morning and cont to monitor h/h # PEA arrest upon arrival to ER - suspect d/t hypoxia; s/p short course of HACA (stopped early d/t weak indication) # CAD s/p PCI to RCA- type II NSTEMI - was unlikely the primary event - asa/plavix - continue lipitor 10mg # encephalopathy (resolved) -head ct reviewed -neuro consult pending # DVT - likely d/t thermaguard - start eliquis now # cardiomyopathy with WMA not correlating to her coronary more suggestive of stress CM - lisinopril; cont coreg # VT during cath - s/p amiodarone, currently on coreg # a-fib - currently in NSR - cont coreg (off amiodarone) # respiratory depression and acute CO2 retention d/t fentanyl - - resolved after narcan, stable today # COPD with acute exacerbation - will taper prednisone from 60mg to 40mg starting 01/07 - inhalers per pulm # acute hypoxic and hypercapnic resp failure - extubated yesterday - overall much improved # sternal and rib fractures - d/t CPR - will assess her pain level when more alert I had 3 bedside visits with this patient today On this morning's retesting of hemoglobin she had dropped down to 7 but on repeat was up above 9. I suspect this is due to hydration issues as well as random fluctuation in the test within its known limits. Looking at her vital signs and her blood counts as well as looking at her groin I do not believe she is having any ongoing bleeding at this time but I she did have bleeding with a pseudoaneurysm will want to continue to watch. Otherwise she is medically stable and I anticipate we can move her to residential facility tomorrow. The patient and her daughter had requested that we try and have her transferred to the [facility] for ongoing care. However she at this point really has very little ongoing hospital care that she requires. When I spoke to a crm coordinator hospitalist there they felt that it was not clinically indicated to have a hospital to hospital transfer as she most likely will be discharged from hospital tomorrow. PLANS: -continue close monitoring of her groin, her vital signs, and her blood counts -continue PT and OT, fall risk precautions -continue current care for COPD exacerbation -continue current preventive cardiac measures SUBJECTIVE: Feels well today overall though still with some exertional dyspnea Minimal ache at her right groin site Not lightheaded OBJECTIVE Vitals reviewed: Stable overall without fever Corporate Intern, my review: Sinus Exam: alert oriented skin warm dry color ok resps not labored lungs clear though very diminished BSs heart regular abd soft nondistended nontender, bowel sounds present limbs her groin site shows some hematoma unchanged from yesterday, with no significant palpable abnormality otherwise. Otherwise limbs are warm, no edema iv site ok Lab data: Initial hemoglobin this morning came back at 7.4 but on repeat was greater than 9 Otherwise CBC and chemistry stable Objective: Vital Signs Temp Pulse Resp BP Pulse Ox 37.1 C 86 16 152/70 H 96 01/09/18 15:16 01/09/18 15:16 01/09/18 15:16 01/09/18 15:16 01/09/18 15:16 Laboratory Results 01/09/18 11:38 01/07/18 18:51 01/08/18 01/09/18 01/10/18 06:59 06:59 06:59 Intake Total 324 3173 1923 Output Total 900 1850 1450 Balance -576 1323 473 PT 15.4 SEC (12.0-15.0) H 01/02/18 03:50 INR 1.20 (0.83-1.16) H 01/02/18 03:50 - Time Spent With Patient Time Spent with Patient: greater than 35 minutes Time Spent with Patient: Greater than 35 minutes spent on this patients care, greater than 50% of time spent counseling, educating, and coordinating care regarding the above mentioned plan. ICD10 Worksheet Patient Problems: Problems Problem Status Onset COPD (chronic obstructive pulmonary disease) Acute Cardiopulmonary arrest Acute Elevated troponin Acute Rib fracture Acute Sternal fracture Acute
[2018-01-09] MEDS: ASPIRIN 325 MG TAB PO SCH (20:15)
[2018-01-09] MEDS: CLOPIDOGREL BISULFATE 75 MG TAB PO SCH (20:15)
[2018-01-10] MEDS: ACETAMINOPHEN 325 MG TAB PO PRN ×2 (04:11→12:29)
[2018-01-10 04:37] LABS: PLATELET COUNT 187 10^3/uL (150-400)
[2018-01-10] MEDS: SENNOSIDES/DOCUSATE SODIUM TAB PO SCH (08:04)
[2018-01-10] MEDS: CARVEDILOL 3.125 MG TAB PO SCH (08:59)
[2018-01-10] MEDS: APIXABAN 5 MG TAB PO SCH (08:59)
[2018-01-10] MEDS: ATORVASTATIN CALCIUM 10 MG TAB PO SCH (09:00)
[2018-01-10] MEDS: LISINOPRIL 10 MG TAB PO SCH (09:00)
[2018-01-10] MEDS: PANTOPRAZOLE SODIUM 40 MG TAB PO SCH (09:00)
[2018-01-10] MEDS: NICOTINE 14 MG/24 HR PATCH TD SCH (09:00)
--- NOTE | 2018-01-10 10:02 | PDIAF ---
- Diagnosis Diagnosis: respiratory arrest, cad new stent, dvt leg, copd, fem art pseudoaneurysm R Code Status: Full Code - Medication Management Discharge Medications: Medications to Continue on Transfer Albuterol [Ventolin Hfa Inhaler] 200 puffs IH Q4H PRN 12/31/17 [Last Taken Unknown] Fluticasone/Salmeter 250/50Mcg [Advair 250/50 (*)] 1 puffs IH BID 01/01/18 [ Last Taken Unknown] Tiotropium Inhaler [Spiriva Inhaler (RX)] 5 inh IH DAILY 01/01/18 [Last Taken Unknown] Apixaban [Eliquis 30-day Starter Pack] 1 kit PO AD #1 kit 01/07/18 [Last Taken Unknown] Aspirin EC [Aspirin EC 81 mg (*)] 81 mg PO DAILY #100 tab 01/07/18 [Last Taken Unknown] Atorvastatin Calcium [Lipitor 10 mg (*)] 10 mg PO DAILY #30 tab 01/07/18 [Last Taken Unknown] Carvedilol [Coreg (*)] 3.125 mg PO BIDMEAL #60 tab 01/07/18 [Last Taken Unknown] Clopidogrel Bisulfate [Plavix (*)] 75 mg PO HS #30 tab 01/07/18 [Last Taken Unknown] Lisinopril [Zestril 10 mg (*)] 10 mg PO DAILY #30 tab 01/07/18 [Last Taken Unknown] Acetaminophen [Tylenol 325mg (*)] 650 mg PO QID PRN tab 01/10/18 [Last Taken Unknown] Albuterol [Proventil Neb] 3 ml IH Q4HRS PRN #0 deyvial 01/10/18 [Last Taken Unknown] Apixaban [Eliquis] 10 mg PO BID #0 tab 01/10/18 [Last Taken Unknown] Aspirin [Aspirin 325 mg (*)] 325 mg PO HS tab 01/10/18 [Last Taken Unknown] Fluticasone/Salmeter 250/50Mcg [Advair 250/50 (*)] 1 puffs IH BID disk [Last Taken Unknown] Lidocaine 4%/Menthol 1% [Icy Hot Lidocaine/Menthol 4%/1% Patch (*)] 1 patch TD DAILY PRN patch 01/10/18 [Last Taken Unknown] Nitroglycerin [Nitrostat 0.4 mg (*)] 0.4 mg SL PRN PRN btl 01/10/18 [Last Taken Unknown] OLANZapine [OLANZapine (*)] 5 mg PO BID PRN tab 01/10/18 [Last Taken Unknown] Tiotropium Inhaler [Spiriva Handihaler] 18 mcg IH DAILY mdi 01/10/18 [Last Taken Unknown] Discharge Medications: Refer to the Discharge Home Medication list for PRN reason. - Orders Services needed: Registered Nurse, Master Legal Aid, Physical Therapy, Occupational Therapy Diet Recommendation: no restrictions on diet Diet Texture: Regular Texture Diet, Thin Liquids Activity/Weight Bearing Restrictions: No lifting pushing or pulling more than 10 lb until January 15. Equipment: Oxygen -the patient will need portable oxygen concentrator after SNF Additional Instructions: Groin precautions for 5 days: No lifting pushing, pulling greater than 10 pounds. No sitting in tub of water. OK to shower. Should groin site become painful or bleeding go to the ED. Continue on Plavix and ASA every day with out fail to prevent stent clotting. f/u with cardiology as directed upon returning back to [place]. Follow up in 7 to 10 days, as well as pulmonology. Participate in Cardiac Rehab in [place] per Duplicator Punch Set Up Operator recommendation and pulmonary rehab referral from assistant mechanic. LDL goal <70. lipid panel in 3 months. - Follow Up Care Current Providers and Referrals: NONE *PRIMARY CARE P,. [Primary Care Provider] -
[2018-01-10] MEDS: FLUTICASONE/SALMETER 250/50MCG DISKUS IH SCH (10:05)
[2018-01-10] MEDS: TIOTROPIUM INHALER 18 MCG/DOSE 5 DOSE/MDI IH SCH (10:06)
--- NOTE | 2018-01-10 10:43 | ASDISCHSUM ---
Discharge Information Plan Status:SNF Medically Cleared to Leave:01/07/2018 Discharge Date:01/07/2018 CM D/C Disposition:Correction Facility ADT D/C Disposition:Correction Facility Projected Discharge Date:01/07/2018 11:00 AM Transportation at D/C:Wheelchair Van Discharge Delay Reason: Follow-Up Date:01/07/2018 11:00 AM Discharge Slot: Final Diagnosis:Cardiac arrest, COPD exacerbation Placement Information Referral Type:*Fci/SNF Referral ID:[facility]-[id number] Provider [facility] Address 1:[address] Address 2: City:[place] Selection Factors: State:[place] Patient Contact Information Contact Name:JONE Relationship:Daughter Address: Work Phone: City: [facility] Phone: State/Zip Code: Email: Financial Information Financial Class:Medicare Primary Plan Desc:MEDICARE INPATIENT Primary Plan Number:[id number] Secondary Plan Desc:[facility] [employer] Secondary Plan Number:[id number] Assessment Information LACE LACE Length of stay for Answers: 4-6 days current admission Acuity / Level of Answers: Yes Care: Did the patient have an inpatient admission? Comorbidities - select Answers: Chronic pulmonary disease all that apply # of Emergency department Answers: 1-2 visits in the last 6 months Score: 10 Date Signed: 01/07/2018 10:07 AM Electronically Signed By:Lindsey Mack RN [facility] CM Progress Note CM Note CM Note Notes: 72yr old female admitted for Cardiac arrest, COPD exacerbation, rib fx and sternum fx. She has a Hx of smoking, COPD. Patient is presently vented. CM to follow for possible discharge needs. Date Signed: 01/01/2018 09:23 AM Electronically Signed By:Lauren Chaney LCSW [facility] ARNALDO Progress Note CM Note ARNALDO Note Notes: Met with patient's daughter, Eliana and patient's boyfriend, Jad.Reviewed the possible d/c plans that may be recommended when patient is ready to d/c. Patient developed a blood clot last night which changes the timeline for patient returning home. Patient would like to go directly from the ICU home but is willing to consider recommendations in the event this is not medically advisable. Patient is most interested in home health while staying at her daughter, Bg walter. Eliana indicated [facility] would be ok if that is what the plan is. D/C plan is still TBD. Eliana and Jad had questions about palliative care. Addressed their questions and discussed how it may be best to start this when patient gets home. Again, however, it depends on the progress patient makes and when she can return home. The family will want all patient's medical records at the time of d/c to take to providers back home. CM will follow. Date Signed: 01/03/2018 04:19 PM Electronically Signed By:Mihaela Lance LCSW [facility] ARNALDO Progress Note ARNALDO Note ARNALDO Note Notes: Met with patient's daughters Yuli and Eliana regarding the [facility] air transport service that might be available for their mom to return home. D/c plan depends on whether or not the patient can return home immediately or needs rehab care. Will discuss with Dr. Crain in the morning. CM will follow. Date Signed: 01/04/2018 04:33 PM Electronically Signed By:Mihaela Lance LCSW [facility] Progress Note CM Note CM Note Notes: Per Dr. Crain patient is stable for transport. However, he will talk to family in rounds tomorrow morning to determine air transport home. Subha with [facility] ([facility]) called to say patient is eligible to be flown home to [facility] and admitted there. It has to be inpatient to inpatient, so when she arrives home in [place] she would be admitted to their hospital for further treatment. If patient is ready for d/c home, she would not be eligible. The family is hoping to fly her home over the weekend, inpatient to inpatient. Subha's number is [phone]. The weekend number is [phone], ask for [facility]. There will need to be a Dr to and that number is [phone]. Subha says they make all the arrangements but need to coordinate with the CM here. CM will follow. Date Signed: 01/05/2018 04:29 PM Electronically Signed By:Mihaela Lance LCSW [facility] ARNALDO Progress Note CM Note ARNALDO Note Notes: Patient chart reviewed. Discussed with MD. Patient felt to be progressing to point that physician feels patient is near rehab standpoint and admission to [facility] not medically indicated at this point. Family has been given information on [facility] and [facility]. They are going to tour them this morning. Referrals placed in allscripts. It is the opinion of the physician that the patient would benefit from rehab. She may be ready to discharge today. CM to follow. Plan rehab. Date Signed: 01/06/2018 10:28 AM Electronically Signed By:Lindsey Mack RN [facility] ARNALDO Progress Note CM Note CM Note Notes: Patient has been medically cleared for discharge to SNF. Final orders to [facility] via [employer]. Call to [facility] to arrange transport of pt via wheelchair van with oxygen. IM signed. Family aware. Will have RN call report to [facility]. CM available should other needs arise. Plan: To SNF rehab Date Signed: 01/07/2018 10:13 AM Electronically Signed By:Lindsey Mack RN [facility] ARNALDO Progress Note CM Note CM Note Notes: Patient discharge canceled due to acute onset of abdominal pain. Call to [facility] to alert them of change. Per admissions there they are on a tight bed situation and we will need to assess for bed availability in am. CM to follow. Date Signed: 01/07/2018 02:41 PM Electronically Signed By:Lindsey Mack RN [facility] CM Progress Note CM Note CM Note Notes: 01/08/2018 Case Management Note Pt requiring further work up d/t changes in her H & H. Case Management faxed updates to [facility]. Case Management to follow. Date Signed: 01/08/2018 12:06 PM Electronically Signed By:Karla Clemente RN Case Management Discharge Plan Note Case Management Discharge Discharge Order Complete? Answers: Yes Patient to Obtain Answers: Other Notes: [facility] Medications Transportation Arranged Answers: Other Notes: arranged by [facility] Transport will Pick (Date 01/10/2018 12:30 PM & Time) Faxed Final Orders Answers: Yes Agency/Facility Transfer Answers: Yes Report Printed & Faxed to Receiving Agency Family Notified Answers: Yes Notes: in room Discharge Comments Notes: 01/10/2018 discharge. [facility] arranged transport with pickup at 12:30 wheel chair and O2. RN called report. Faxed final orders. Family in room. Date Signed: 01/10/2018 10:42 AM Electronically Signed By:Karla Clemente RN Intervention Information Intervention Type:*IM-Signed Date of Service:01/07/2018 10:04 AM Patient Type:Inpatient Staff Member:BARI Mack Margaret Hours: Discipline: Severity: Comment: Intervention Type:*IM-Signed Date of Service:01/10/2018 10:25 AM Patient Type:Inpatient Staff Member:Edwina García Hours: Discipline: Severity: Comment:
--- NOTE | 2018-01-10 11:24 | PDDCSUM ---
Discharge Summary Discharge Summary: DISCHARGE DIAGNOSES: -pulseless electric activity cardiac arrest likely triggered by acute respiratory failure and respiratory or arrest; resuscitation to spontaneous pulse and circulation with CPR -complete neurologic recovery after her arrest -acute COPD exacerbation acute hypoxemic and hypercarbic respiratory failure -coronary artery disease: 70% mid RCA lesion treated with JAIR, mild RCA disease more distally, 50-60% stenosis of proximal circ diagonal, 30-40% proximal circumflex lesion, diffuse LAD disease 30-40%; highest troponin during this hospitalization 0.9 -2 episodes of ventricular tachycardia during coronary interventions requiring cardioversion -myocardial dysfunction initially seen after rest with ejection fraction 30-35% recovered to 65% on repeat echocardiogram -DVT of leg acutely during this hospital stay, started on anticoagulation -pseudoaneurysm with leak at right femoral artery groin access site, status post ultrasound-guided repair successfully -chronic tobacco abuse, with the patient having stopped smoking 1 week before this admission -COPD newly diagnosed at this time, based on symptoms, response to bronchodilators, and severe emphysematous change in upper lobes on CT scan -fractures to ribs and sternum from chest compressions, well tolerated at this time point by patient -acute blood loss anemia from her femoral artery access pseudoaneurysm, stable at this time CONSULTANTS: Dr. Gal Crain of Critical Care pulmonology Dr. Kemp of Cardiology PROCEDURES: Cardiopulmonary resuscitation including endotracheal intubation and mechanical ventilation CT angio of chest showing no evidence of pulmonary embolism, but showing severe emphysematous changes CT scan of head with no acute abnormalities Coronary angiography and drug-eluting stent placement mid right coronary artery Ultrasound based repair of right femoral artery pseudoaneurysm Doppler ultrasound of legs showing DVT in right common femoral vein HOSPITAL COURSE SUMMARY: This patient with no history of heart or lung disease but with chronic smoking traveled from her home in [facility] to [place] to visit family. On the night she got here she begin to have some dyspnea on the following day began more dyspneic. As her family was driving her here to the ER she had more more respiratory difficulty and turn and ashen ellis color according to the family. Upon entering the emergency room the patient was in severe respiratory distress and as she was initially being evaluated suffered cardiopulmonary arrest with pulseless electric activity. She was treated with CPR and had spontaneous return pulse and circulation after few minutes of CPR. She was intubated and placed on mechanical ventilator. A CT angio of chest showed no PE no pneumonia no heart failure. She was taken to cardiac lab where she underwent angiograms showing 70% mid right coronary lesion and milder diffuse disease and 3 vessel territory. A drug-eluting stent was placed in the right coronary. She was placed in the intensive care unit and supported aggressively there. She was able to be extubated. Initially there was some encephalopathy but at this time the patient has complete recovery neurologically. She has severe COPD and is still requiring some oxygen at this time while using inhaled bronchodilators and steroids, however there is no evidence of pneumonia or pulmonary edema and she is on just 2 L of oxygen and ambulating in the hallway. Her initial echocardiogram showed a left ventricular systolic dysfunction with 30-35% ejection fraction. However by the time of her angiography she had a 55% ejection fraction and on the most recent echocardiogram 65% ejection fraction. She has had no significant injury to the kidneys or liver. She does have some injuries to her sternum and ribs but is tolerating these well. She did have significant decrease in her blood counts along with increase in pain in her groin a few days after her resuscitation. Ultrasound showed a pseudoaneurysm with leak and this was repaired by ultrasound-guided procedure. She has been stable since that time. She also did during her hospital say have identification of a right femoral vein DVT when she developed some discomfort there. There was 1 brief episode of atrial fibrillation. Due to her DVT and atrial fibrillation she is currently on anticoagulation. New medications include daily aspirin, daily Plavix, Coreg, lisinopril, Lipitor , albuterol, Advair and Spiriva. She is tolerating all these medicines well at this time. Her acute medical issues all appear reasonably stabilized at this time. However she remains moderately weak. She is walking in the hallway with a walker on 2 L oxygen. It is felt that before trying to return home she will need further rehabilitation and is being transferred to half-way facility for that therapy at this time. Her plan is to attempt to fly back to [facility] when she is able. PENDING TEST RESULTS: None MEDICATION CHANGES: Addition of daily aspirin, Plavix 75 mg, Coreg, lisinopril, Lipitor, albuterol, Advair, and Spiriva FOLLOW-UP PLAN: At this time she is transferred to [facility] for ongoing physical therapy rehabilitation. Following this she will return to home in [facility] and will seek referral to rug receiving clerk and sql server consultant through her primary care provider there. I have placed a call to her primary care provider's office to update her and recommend she begin lining up consultations. Is strongly recommended that she be referred to cardiac rehabilitation and pulmonary rehabilitation clinics as well. The patient is aware that she will need to stay on aspirin and Plavix due to her stent, as well as statin therapy. Greater than 35 minutes bedside and care coordination time today
[2018-01-10 11:40] VITALS: BP 155/72
== END 2018-01-10 12:42 | DRG 981 ==
LOC: F2N 01-01 03:16 → F2W 01-05 17:24
PROVIDERS: ADMIT Student in an Organized Health Care Education/Training Program; ATTEND Student in an Organized Health Care Education/Training Program
PROC: 027034Z Dilation of Coronary Artery, One Artery with Drug-eluting Intraluminal Device, Percutaneous Approach (ICD-10-PCS; principal; 2018-01-01)
PROC: B2151ZZ Fluoroscopy of Left Heart using Low Osmolar Contrast (ICD-10-PCS; principal; 2018-01-01)
PROC: 4A023N7 Measurement of Cardiac Sampling and Pressure, Left Heart, Percutaneous Approach (ICD-10-PCS; principal; 2018-01-01)
PROC: B2111ZZ Fluoroscopy of Multiple Coronary Arteries using Low Osmolar Contrast (ICD-10-PCS; principal; 2018-01-01)
PROC: 0BH18EZ Insertion of Endotracheal Airway into Trachea, Via Natural or Artificial Opening Endoscopic (ICD-10-PCS; 2018-01-01)
PROC: 5A1945Z Respiratory Ventilation, 24-96 Consecutive Hours (ICD-10-PCS; 2018-01-01)
PROC: 05H Upper Veins, Insertion (ICD-10-PCS; 2018-01-01)
DX: J44.1 Chronic obstructive pulmonary disease with (acute) exacerbation (principal); J96.01 Acute respiratory failure with hypoxia; J96.02 Acute respiratory failure with hypercapnia; I46.8 Cardiac arrest due to other underlying condition; I21.A1 Myocardial infarction type 2; I25.10 Atherosclerotic heart disease of native coronary artery without angina pectoris; S22.20XA Unspecified fracture of sternum, initial encounter for closed fracture; S22.49XA Multiple fractures of ribs, unspecified side, initial encounter for closed fracture; X58.XXXA Exposure to other specified factors, initial encounter; Y92.238 Other place in hospital as the place of occurrence of the external cause; I82.411 Acute embolism and thrombosis of right femoral vein; D62 Acute posthemorrhagic anemia; G92 Toxic encephalopathy; T42.75XA Adverse effect of unspecified antiepileptic and sedative-hypnotic drugs, initial encounter; I48.91 Unspecified atrial fibrillation; I47.2 Ventricular tachycardia; R79.1 Abnormal coagulation profile; F17.210 Nicotine dependence, cigarettes, uncomplicated
CPT/HCPCS: 82947-QW; 92526-GN; 92610-GN; 96365; 97116-GP; 97162-GP; 97166-GO; 97530-GP; 97535-GO; C1725; C1769; C1874; C1887; C9600; C9606; G0480; G0515-GO; G8978-GP-CJ; G8979-GP-CI; G8987-GO-CM; G8988-GO-CJ; G8989-GO-CI; G8996-GN-CK; G8997-GN-CH; G8998-GN-CH; J0171; J0282; J0461; J0583; J0610; J1265; J1644; J1650; J1815; J1940; J1956; J2060; J2250; J2310; J2370; J2405; J2704; J2930; J3010; J3475; J3480; J7512; J7613; Q9967

== ENCOUNTER 2018-01-25 09:59 | Inpatient (IN) | payer OTHER ==
[2018-01-25] MEDS ORDERED: DIAZEPAM 5 MG/ML 1 ML SYR IVP ONE ×2 (11:47→14:48)
[2018-01-25] MEDS ORDERED: HYDROmorphONE/DILAUDID 2 MG/ML INJ IVP ONE ×2 (12:46→16:27)
[2018-01-25 13:52] LABS: PLATELET COUNT 353 10^3/uL (150-400)
--- NOTE | 2018-01-25 15:53 | EDPHY ---
H & P Smoking Status: Former smoker Time Seen by Provider: 01/25/18 10:45 HPI/ROS: CHIEF COMPLAINT: Fall, hip pain HISTORY OF PRESENT ILLNESS: 72-year-old female presents to the emergency department after having a mechanical fall injuring her left hip. The patient states that she was going down some concrete steps and lost her balance and fell onto her left hip. She did not hit her head or lose consciousness. She denies a headache. Denies neck or back pain. Denies chest pain or difficulty breathing. Denies abdominal pain. Denies paresthesias to upper lower extremities. Denies pain in her left knee. She was having some pain in her left foot although this is now resolved. Denies pain in the right lower extremity or upper extremities bilaterally. REVIEW OF SYSTEMS: Constitutional: No fever, no chills. Eyes: No double or blurry vision. ENT: No sore throat. Respiratory: No cough, no shortness of breath. Cardiac: No chest pain. Gastrointestinal: No abdominal pain, vomiting or diarrhea. Genitourinary: No dysuria. Musculoskeletal: No neck or back pain. Skin: No rashes. Neurological: No headache. (Cherry Macias) Past Medical/Surgical History: Cardiac arrest December 2017 just released from cardiac rehab (Cherry Macias) Social History: Visiting from [place] (Cherry Macias) Physical Exam: General Appearance: Alert, no distress. Mentating normally and answering questions appropriately. Eyes: Pupils equal and round. Extraocular motions are all intact. ENT: Mouth: Mucous membranes moist. Respiratory: No wheezing, rhonchi, or rales, lungs are clear to auscultation. Cardiovascular: Regular rate and rhythm. Gastrointestinal: Abdomen is soft and nontender, no masses, no rebound or guarding, bowel sounds normal. Neurological: Alert and oriented x 3, cranial nerves II through XII grossly intact Skin: Warm and dry, no rashes. Musculoskeletal: Nontender to palpate along the cervical, thoracic or lumbar spine. Neck is supple. Extremities: Tenderness with palpation to the lateral aspect of the left hip. She has pain with external rotation of the left hip. Nontender to palpate the left knee or left foot. Full range of motion of the lower right lower extremity and upper extremities bilaterally. Psychiatric: Patient is oriented X 3, there is no agitation. (Cherry Macias) Constitutional: Initial Vital Signs Temperature (C) 36.9 C 01/25/18 10:17 Heart Rate 82 01/25/18 10:17 Respiratory Rate 20 01/25/18 10:17 Blood Pressure 145/79 H 01/25/18 10:17 O2 Sat (%) 96 01/25/18 10:17 O2 Delivery Mode Nasal Cannula O2 (L/minute) 4 Allergies/Adverse Reactions: No Allergies [NKDA] Allergy (Verified 01/25/18 10:14) Home Medications: Medication Instructions Recorded Albuterol [Ventolin Hfa Inhaler] 200 puffs IH Q4H PRN 12/31/17 Tiotropium Inhaler [Spiriva 5 inh IH DAILY 01/01/18 Inhaler (RX)] Apixaban [Eliquis 30-day Starter 1 kit PO AD #1 kit 01/07/18 Pack] Aspirin EC [Aspirin EC 81 mg (*)] 81 mg PO DAILY #100 tab 01/07/18 Atorvastatin Calcium [Lipitor 10 10 mg PO DAILY #30 tab 01/07/18 mg (*)] Carvedilol [Coreg (*)] 3.125 mg PO BIDMEAL #60 tab 01/07/18 Clopidogrel Bisulfate [Plavix (*)] 75 mg PO HS #30 tab 01/07/18 Lisinopril [Zestril 10 mg (*)] 10 mg PO DAILY #30 tab 01/07/18 Aspirin [Aspirin 325 mg (*)] 325 mg PO HS tab 01/10/18 Nitroglycerin 01/25/18 Medical Decision Making - Diagnostics Imaging: I viewed and interpreted images myself - Diagnostics Imaging Results: Imaging Impressions Hip X-Ray 01/25/18 10:22 Impression: Acute subcapital femoral neck fracture. ED Course/Re-evaluation: 72-year-old female presents to the emergency department after mechanical fall injuring her left hip. X-rays reveal acute subcapital left femoral neck fracture. The patient was kept NPO. The patient is retired from [facility] and would like to be sent back to [place] for repair of her left hip fracture. She understands that she could be admitted to our hospital in [place] and have operative repair of her left hip , however the patient elects to use the air ambulance and fly back to [place] into [facility] for her repair of her left hip fracture. I spoke with Dr. Harley Grijalva, orthopedic surgeon at [facility], who accepts this patient. He recommended the patient be sent to [facility] in [place] and he will be the admitting physician. Multiple phone calls were made to the [facility] transfer center, [phone]. As well as air ambulance [phone]. ETA for ambulance is not until 2762. Dr. Cristal walter, secondary supervising physician, also evaluated the patient and did speak with the patient as well as family at bedside regarding possibility being admitted to the hospital. She was again offered admission to the hospital with surgical repair by 1 of our orthopedic surgeons, however the patient declined. Dr. Cristal Hills recommended calling anesthesiologist for possible femoral nerve block for comfort since she will be here for several more hours until transport. I spoke with Dr. Dugan at 1630, on-call anesthesiologist, who is not actually in the hospital currently but will paged who is in the hospital to come down evaluate the patient for possible femoral nerve block. (Cherry Macias) 1700: The patient is signed out to me at change of shift by Cherry VALDOVINOS. Patient is awaiting transfer by air ambulance. Arrangements have been made. The crew will come to pick her up at 10:30pm this evening. Per report, the patient is aware the plan. 1710: Patient was moved to a hospital bed from her ED bed. During the movement she described increased hip pain as well as some chest tightness. She was noted to become tachycardic into the low 100s. Because of her symptoms I repeated her EKG. EKG: Sinus tachycardia 105. Normal axis. Normal intervals. No ST or T-wave abnormalities. Troponin ordered I re-evaluated the patient. Patient was tachycardic at 101. The patient was also noted to be on 4 L at 95%. I reviewed her previous vital signs. Patient states she had mild right hip pain. Patient's breath sounds were clear bilaterally. She had tachycardia with regular rhythm. She was neurovascularly intact distally. I discussed the current plan with the patient. Currently she is scheduled to taking her transported 10 30pm to the [facility]. In my opinion I felt the patient would be better served if she was treated at [facility] prior to transfer. I was concerned with the prolonged wait to have her hip repaired as well as the prolonged travel. Patient was noted to be tachycardic with some mild chest discomfort. She had a recent cardiac arrest. She has increased oxygen requirement. Because of all these reasons I felt transport was more risky than treatment at [facility]. I discussed this with the patient. She agreed with the change of plan. I discussed the case with Dr. Santana from the hospitalist service. He agrees with the plan and will admit. I discussed the case with Dr. Duke from Cardiology. He will evaluate the patient preop with her recent cardiac arrest history. I discussed the case with Orthopedics. The patient's family was present in the room. Dr. Campbell and I introduced ourselves to the family. Questions were answered. Flight program was notified and flight cancelled. Of note, the patient took Eliquis this morning. 1821: Dr. Duke is in the ED for evaluation. I rechecked the patient. She was doing well. The family is aware the plan. ( Nati Marte) Differential Diagnosis: Including but not limited to fracture, dislocation, contusion, sprain (Cherry Macias) Critical Care Time: The patient required 35 min of critical care time. This was exclusive of any on Bentyl procedure. This was due the patient's fracture, tachycardia, recent cardiac arrest, consultation with Orthopedics, Internal Medicine, Cardiology, and time spent at the bedside. (Nati Marte) Other Provider: I evaluated and participated in the management of the patient. I also evaluated the patient independently. My co-signature indicates that I have reviewed this chart and I agree with the findings and plan of care as documented. My personal H&P findings include: 72-year-old female who fell this morning landing on her left hip and presents complaining of left hip pain. Patient is on Plavix. She did not strike her head. She had no loss of consciousness. Primary complaint is of left hip pain. On examination patient is alert oriented x3. Neurologic exam is nonfocal. Lungs are clear to auscultation heart is regular rate and rhythm. Patient does have tenderness over the lateral aspect of the left hip as well as pain with external rotation. Distal neurovascular exam is intact. X-ray was obtained and demonstrates a left subcapital femoral neck fracture. Patient request to be transferred to [facility] in [place], [place]. Please see documentation provided by BONIFACIO Ching regarding this process. Patient did have an accepting physician. I discussed the situation at length with the patient around 4:00 p.m., as we have recently learned that the earliest the patient would be able to be transferred to [facility] would be 10:30 tonight. Patient has needed Dilaudid for pain control while in the emergency department. We discussed the fact that delay in operative repair may lead to complications, increased pain, and prolonged time of immobility. I discussed admission to our hospital with the patient. Patient and her enterprise engineer would prefer to continue to await transfer to [facility], as the patient does live in [facility]. We have asked anesthesia to evaluate the patient in the emergency department for consideration of a femoral nerve block in order to provide her ongoing pain relief. Patient's care was assumed by Dr. Nati Marte. Plan at this point is continued observation, pain medications as needed, NPO past midnight, and transfer to [facility] when available. (Cristal Hills) - Data Points Laboratory Results: Laboratory Results 01/25/18 11:17 01/25/18 11:17 01/25/18 01/25/18 11:17 11:17 WBC 7.44 10^3/uL 10^3/uL (3.80-9.50) RBC 2.99 10^6/uL L 10^6/uL (4.18-5.33) Hgb 10.0 g/dL L g/dL (12.6-16.3) Hct 30.4 % L % (38.0-47.0) MCV 101.7 fL H fL (81.5-99.8) MCH 33.4 pg pg (27.9-34.1) MCHC 32.9 g/dL g/dL (32.4-36.7) RDW 15.1 % % (11.5-15.2) Plt Count 353 10^3/uL 10^3/uL (150-400) MPV 9.2 fL fL (8.7-11.7) Neut % (Auto) Not Reported Lymph % (Auto) Not Reported [place] % (Auto) Not Reported Eos % (Auto) Not Reported Baso % (Auto) Not Reported Nucleat RBC Rel Count Not Reported Absolute Neuts (auto) Not Reported Absolute Lymphs (auto) Not Reported Absolute Monos (auto) Not Reported Absolute Eos (auto) Not Reported Absolute Basos (auto) Not Reported Absolute Nucleated RBC Not Reported Immature Gran % Not Reported Seg Neutrophils % 69.0 % % Band Neutrophils % 13.0 % % Lymphocytes % 10.0 % % Monocytes % 5.0 % % Eosinophils % 3.0 % % Basophils % 0 % % Metamyelocytes % 0 % % Myelocytes % 0 % % Promyelocytes % 0 % % Blast Cells % 0 % % Immature Gran # Not Reported Absolute Seg Neuts 5.13 10^/uL 10^/uL (1.70-6.50) Absolute Band Neuts 0.97 10^3/uL H 10^3/uL (0.00-0.70) Absolute Lymphocytes 0.74 10^3/uL L 10^3/uL (1.00-3.00) Absolute Monocytes 0.37 10^3/uL 10^3/uL (0.30-0.80) Absolute Eosinophils 0.22 10^3/uL 10^3/uL (0.03-0.40) Absolute Basophils 0.00 10^3/uL L 10^3/uL (0.02-0.10) Absolute Metamyelocyte 0.00 10^3/mL 10^3/mL (0.00-0.00) Absolute Myelocytes 0.00 10^3/mL 10^3/mL (0.00-0.00) Absolute Promyelocytes 0.00 10^3/uL 10^3/uL (0.00-0.00) Absolute Plasma Cells 0.00 10^3/uL 10^3/uL (0.00-0.00) Absolute Blast Cells 0.00 10^3/uL 10^3/uL (0.00-0.00) Plasma Cells % 0 % % Platelet Estimate ADEQUATE (ADEQ) Hypochromasia 1+ H Sodium 133 mEq/L L mEq/L (135-145) Potassium 4.2 mEq/L mEq/L (3.5-5.2) Chloride 95 mEq/L L mEq/L (97-110) Carbon Dioxide 26 mEq/l mEq/l (22-31) Anion Gap 12 mEq/L mEq/L (8-16) BUN 12 mg/dL mg/dL (7-23) Creatinine 0.5 mg/dL L mg/dL (0.6-1.0) Estimated GFR > 60 Glucose 96 mg/dL mg/dL (70-100) Calcium 8.7 mg/dL mg/dL (8.5-10.4) Medications Given: Discontinued Medications Diazepam (Valium) 2.5 mg IVP EDNOW ONE Stop: 01/25/18 11:48 Last Admin: 01/25/18 12:08 Dose: 2.5 mg Diazepam (Valium) 2.5 mg IVP EDNOW ONE Stop: 01/25/18 14:49 Last Admin: 01/25/18 14:50 Dose: 2.5 mg Hydromorphone HCl (Dilaudid) 0.5 mg IVP EDNOW ONE Stop: 01/25/18 12:47 Last Admin: 01/25/18 12:51 Dose: 0.5 mg Hydromorphone HCl (Dilaudid) 1 mg IVP EDNOW ONE Stop: 01/25/18 16:28 Last Admin: 01/25/18 16:28 Dose: 1 mg Departure - Departure Disposition: Acute Care Hospital [facility] Clinical Impression: Fracture of left hip Qualifiers: Encounter type: initial encounter Fracture type: closed Qualified Code(s): S72.002A - Fracture of unspecified part of neck of left femur, initial encounter for closed fracture
[2018-01-25] MEDS ORDERED: HYDROmorphONE/DILAUDID 2 MG/ML INJ ONE (16:23)
--- NOTE | 2018-01-25 17:21 | CPEKG ---
Heart Rate: 105 RR Interval: 571 P-R Interval: 140 QRSD Interval: 84 QT Interval: 332 QTC Interval: 439 P Dafter: 73 QRS Dafter: 73 T Wave Dafter: 87 EKG Severity - ABNORMAL ECG - EKG Impression: SINUS TACHYCARDIA EKG Impression: NONSPECIFIC T ABNORMALITIES, LATERAL LEADS Electronically Signed By: Cristal Hills 25-Jan-2018 17:26:57
[2018-01-25] MEDS ORDERED: NS 500 ML IV ONE (18:41)
[2018-01-25] MEDS ORDERED: ONDANSETRON DISINTEGRATING 4 MG TAB PO PRN (18:41)
[2018-01-25] MEDS ORDERED: ONDANSETRON 4 MG/2 ML VIAL IVP PRN (18:41)
--- NOTE | 2018-01-25 19:32 | GHP ---
[f rep st] HISTORY AND PHYSICAL DATE OF ADMISSION: 01/25/2018 CHIEF COMPLAINT: Fall. HISTORY OF PRESENT ILLNESS: 72-year-old female with complicated recent history which occurred at [facility]. I will detail that below. She presented today after a fall. She was walking down stair s carrying oxygen. She fell, landed on her left hip. She had immediate pain. She was unable to marielle r weight on the left hip. She has sensation and motor intact in her left foot. X-ray in the emergen cy department showed an acute hip fracture. Recent history notable for hospitalization here from 01/01 to 01/10. She had actually been discharge d to [facility], had been discharged from [facility] yesterday. On her last hospitalization, she prese nted in acute respiratory distress with oxygen sats in the 60s. She had a subsequent PEA arrest, had return of spontaneous circulation. She did receive chest compressions. She did not receive any med ications during her arrest. She only received CPR. Post arrest, she was taken to the phlebotomist lab assistant and a stent was placed in her right RCA. It does not appear that the arrest was primary cardiac in nature , although she did have coronary artery disease. She has been on aspirin and Plavix since then. Dur ing her hospitalization, this was complicated by COPD exacerbation. This has improved. She was walker tionally diagnosed with a DVT and was started on Eliquis. Her last dose of Eliquis was this morning, although she missed her dose of aspirin and Plavix this morning. In the emergency department, she had 1 episode of chest pain while she was moving from 1 bed to [facility]. She describes this as a sharp, stabbing chest pain that she attributes to her sternal and rib fr actures. PAST MEDICAL/SURGICAL HISTORY: 1. Recent PEA arrest. 2. Recent coronary artery disease, status post drug-eluting stent. 3. Recent DVT. 4. COPD and chronic respiratory failure, currently on 2 L of oxygen. 5. 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 6. Atrial fibrillation. MEDICATIONS: Please see medication reconciliation. ALLERGIES: No known drug allergies. SOCIAL HISTORY: She is from [place]. She was here visiting her daughters. She is , accomp anied by her . FAMILY HISTORY: Reviewed and noncontributory. REVIEW OF SYSTEMS: 10-point review of systems is conducted and is negative except per HPI. PHYSICAL EXAM: VITAL SIGNS: Blood pressure 176/86, heart rate 102, respiration rate 16, saturating 98% on 3 L. She is afebrile. GENERAL: The patient is a pleasant female who appears slightly uncomf ortable. HEENT: Normocephalic, atraumatic. CARDIOVASCULAR: Regular rate and rhythm and rhythm. T here are no murmurs, rubs, or gallops. PULMONARY: Lungs clear to auscultation bilaterally. ABDOMEN : Soft, nontender, nondistended. SKIN: Shows no rash. : No Saab. NEUROLOGIC: Alert and orie nted x3. She is moving all extremities. PSYCHIATRIC: Normal mood and affect. EXTREMITIES: Shows her left extremity to be shortened and externally rotated. Her left foot is warm. She has sensation and motor intact in her left foot. LABS: Hemoglobin is 10, white count 7.4, sodium is 133, creatinine is 0.5. DATA: 1. I personally viewed and interpreted her EKG. This shows sinus tachycardia. She has mild T-wave inversion in V5. 2. I reviewed her x-ray. This shows left subcapital femoral neck fracture. 3. I discussed with both Dr. Alvarez, Dr. Thomas, as well as Dr. Elmore. IMPRESSION AND PLAN: 1. Hip fracture: This will need to be operatively repaired. Dr. Elmore is involved. He is planning on doing this tomorrow. This is complicated by her recent drug-eluting stent. She has missed her do se of aspirin and Plavix today. Dr. Chery will decide whether she needs a dose tonight or when to res tart tomorrow. She is on Eliquis from a recent deep venous thrombosis. I think it is safe at this p oint to hold her Eliquis as her most recent lower extremity ultrasound showed resolved deep venous th rombosis. Her initial diagnosis of deep venous thrombosis was on January 03. This was reported as a s hort segment nonocclusive deep venous thrombosis in the right common femoral vein. All of these abov e factors put the patient at significantly higher risk. This has been communicated to her. 2. Chest pain: This was during the transition from 1 bed to another. I do not think that this repr esents cardiac ischemia, much more likely musculoskeletal. Cardiology agrees. 3. Recent pulseless electrical activity arrest: Suspect due to hypoxia. That was in the setting of a chronic obstructive pulmonary disease exacerbation. 4. Coronary artery disease, status post drug-eluting stent that was placed on 01/01/2018: Important to continue her aspirin and Plavix. Cardiology involved. 5. Recent deep venous thrombosis: I think it is okay to hold her anticoagulation at this point. 6. Chronic obstructive pulmonary disease/chronic respiratory failure: Will continue her home inhale rs. She is not currently in chronic obstructive pulmonary disease exacerbation. 7. Venous thromboembolism risk: She will need at least prophylactic dose anticoagulation postoperat ively to be started when Dr. Elmore is okay with this. Complicated by her dual anti-platelet therapy. /[id number]/MODL
[2018-01-25] MEDS ORDERED: HYDROmorphONE/DILAUDID 1 MG/ML INJ IVP ONE (20:10)
[2018-01-25] MEDS: HYDROmorphONE/DILAUDID 2 MG/ML INJ IVP PRN (20:15)
[2018-01-25] MEDS ORDERED: ALBUTEROL IH PRN (21:49)
[2018-01-25] MEDS ORDERED: ALBUTEROL 60 PUFFS/8 GM MDI IH PRN (21:55)
[2018-01-25] MEDS ORDERED: NITROGLYCERIN 0.4 MG BTL SL SCH (22:00)
--- NOTE | 2018-01-25 22:47 | PDANEPAE ---
ANE History of Present Illness traumatic hip fracture here for ORIF ANE Past Medical History - Cardiovascular History Hx Hypertension: Yes Hx Arrhythmias: Yes Hx Chest Pain: Yes Hx Coronary Artery / Peripheral Vascular Disease: Yes - Pulmonary History Hx COPD: Yes O2 in Use at Home (L/minute): 2 Hx Sleep Apnea: No - Endocrine History Hx Diabetes: No - Chronic Pain History Chronic Pain: No ANE Review of Systems Review of Systems: ANE Patient History - Allergies Allergies/Adverse Reactions: No Allergies [NKDA] Allergy (Verified 01/25/18 10:14) - Home Medications Home Medications: Albuterol [Ventolin Hfa Inhaler] 1 - 2 puffs IH Q4H PRN 12/31/17 [Last Taken Unknown] Tiotropium Inhaler [Spiriva Inhaler (RX)] 5 inh IH DAILY 01/01/18 [Last Taken Unknown] Apixaban [Eliquis] 5 mg PO BID 01/25/18 [Last Taken Unknown] Fluticasone/Salmeter 250/50Mcg [Advair 250/50 (*)] 1 puffs IH BID 01/25/18 [ Last Taken Unknown] Lisinopril [Zestril 5 mg (*)] 5 mg PO DAILY 01/25/18 [Last Taken Unknown] Nitroglycerin [Nitrostat 0.4 mg (*)] 0.4 mg SL Q5M 01/25/18 [Last Taken Unknown] - NPO status NPO Status: no food or drink >8 hours - Anes Hx Anes Hx: no prior problems - Smoking Hx Smoking Status: Former smoker - Alcohol Use Alcohol Use: Rarely - Family Anes Hx Family Anes Hx: none ANE Labs/Vital Signs - Labs Result Diagrams: 01/25/18 11:17 01/25/18 11:17 - Vital Signs Blood Pressure: 187/75 Heart Rate: 103 Respiratory Rate: 16 O2 Sat (%): 98 Height: 160.02 cm Weight: 48.081 kg ANE Physical Exam - Airway Neck exam: FROM Mallampati Score: Class 2 Mouth exam: poor dentition, dentures - Pulmonary Pulmonary: no respiratory distress - Cardiovascular Cardiovascular: regular rate and rhythym - ASA Status ASA Status: III ANE Anesthesia Plan Anesthesia Plan: general endotracheal anesthesia
[2018-01-26] MEDS: HYDROmorphONE/DILAUDID 2 MG/ML INJ IVP PRN (02:17)
[2018-01-26] MEDS ORDERED: VANCOMYCIN 1 GM VIAL ONE (04:47)
[2018-01-26] MEDS ORDERED: EPINEPHrine 1 MG/ML INJ ONE (04:47)
[2018-01-26] MEDS ORDERED: POLYMYXIN B SULFATE 500,000 UNIT/10 ML SYR IRR ONE (04:48)
[2018-01-26] MEDS ORDERED: BACITRACIN 50,000 UNITS/10 ML SYR IRR ONE (04:49)
[2018-01-26] MEDS ORDERED: DEXAMETHASONE 4 MG/ML VIAL IVP ONE (05:21)
[2018-01-26] MEDS ORDERED: ceFAZolin 2 GM/SWFI 2 GM/20 ML SYR IVP ONE (05:21)
[2018-01-26] MEDS ORDERED: ROPIVACAINE 0.2% 80 MG, EPINEPHrine 0.2 MG, KETOROLAC TROMETHAMINE 30 MG in SYRINGE 0 ML IU ONE (05:21)
[2018-01-26] MEDS ORDERED: FAMOTIDINE 20 MG TAB PO ONE (05:21)
[2018-01-26] MEDS ORDERED: POVIDONE-IODINE 20 ML in SODIUM CL IRRIG SOLUTION 500 ML IRR ONE (05:21)
[2018-01-26] MEDS ORDERED: PROPOFOL 200 MG/20 ML VIAL ONE (05:26)
[2018-01-26] MEDS ORDERED: fentaNYL 100 MCG/2 ML INJ ONE (05:26)
[2018-01-26] MEDS ORDERED: ROCURONIUM 50 MG/5 ML VIAL ONE (05:27)
[2018-01-26] MEDS ORDERED: LIDOCAINE 2% 100 MG/5 ML SYR ONE (05:27)
[2018-01-26 05:47] LABS: PLATELET COUNT 235 10^3/uL (150-400)
[2018-01-26] MEDS ORDERED: ceFAZolin 1 GM VIAL ONE ×2 (05:59)
--- NOTE | 2018-01-26 06:13 | GCON ---
[f rep st] CONSULTATION DATE OF CONSULTATION: 01/26/2018 CHIEF COMPLAINT: Left hip pain. HISTORY OF PRESENT ILLNESS: A 72-year-old female with a very complicated recent past medical history. Patient was hospitalized from January 01 to January 10 after a cardiac arrest for which she did receive chest compressions but no medications. Post arrest, she received a cardiac stent. She has been on aspirin and Plavix for this. Her hospitalization was also complicated by a COPD exacerbation as well as a deep vein thrombosis, which has been treated with Eliquis. In regard to her recent admission, patient was walking down the stairs carrying oxygen and fell onto her left hip. She had immediate pain, inability to weight bear, but denies numbness, tingling, or distal extremity weakness. Emergency room x-rays depicted an acute femoral neck fracture. Patient did have a dose of Eliquis on the morning of January 25, 2018, but had failed to take her aspirin and Plavix that morning. PAST MEDICAL HISTORY: As above, along with suspected cardiomyopathy and atrial fibrillation. MEDICATIONS: Please see med rec. ALLERGIES: None. SOCIAL HISTORY: Patient is from [place], [place]. She is visiting her daughter. She is and accompanied by her . She walks approximately 1 mile every day at the [facility] and enjoys frequent gardening. REVIEW OF SYSTEMS: A 10-point review of systems conducted, negative except per HPI. PHYSICAL EXAM: VITAL SIGNS: Blood pressure is 176/86, heart rate 102, respirations 16, saturating 98% on 3 L. GENERAL: Patient is pleasant, slightly uncomfortable, leaning to the right side away from her injured hip, however, in no acute distress. Alert and oriented x3. HEENT: Normocephalic, atraumatic. RESPIRATORY: Easy, nonlabored breathing. ABDOMEN: Soft, nontender. EXTREMITIES: Left lower extremity is shortened and externally rotated. Sensation is intact to light touch from L4 to S1. She has motor intact to EHL, FHL, tibialis anterior, and gastrocsoleus. Palpable DP, PT pulses. Compartments are soft and compressible. LABORATORY DATA: Hemoglobin is 10, white count 7.4. Sodium 133, creatinine 0.5. X-RAYS: Show a displaced Garden III vs IV femoral neck fracture. ASSESSMENT AND PLAN: A 72-year-old female with a complicated recent past medical history with an acute left femoral neck fracture. We discussed the nature of femoral neck fractures and operative versus nonoperative treatment, and the high risk of mortality with nonoperative treatment. The patient was initially planning on flying back to [place], [place], to have her hip fracture surgically addressed. However, due to her medical condition and hemodynamic stability, we feel that is best she is treated here. Specifically regarding the patient's surgery, we discussed anterior versus posterior approach , total versus hemiarthroplasty, and cemented versus uncemented femoral component. In summary, we discussed posterior approach capri versus total hip arthroplasty depending on the patient's stability and the amount of bleeding during surgery. We will also plan for an uncemented press-fit femoral stem, but will be prepared for a cemented femoral component as well depending on patient's bone quality, stem fit, and amount of bleeding in the femoral canal. A long discussion was had with the patient, her daughter and her regarding her significantly increased risk to undergo this procedure, but also the risk of treating it nonoperatively. Specifically to her, the above-average risks of bleeding, cardiac arrest, stroke, and are higher than average. The risks of hip replacements include dislocation, fracture, leg-length discrepancy, heterotopic ossification, deep vein thrombosis, infection, nerve or vessel damage, and implant failure or decreased longevity. The patient and her family members understand and agree. They wish to proceed. Informed consent was signed. All questions were answered. /[id number]/MODL MTDD
[2018-01-26] MEDS ORDERED: ONDANSETRON 4 MG/2 ML VIAL ONE (06:36)
[2018-01-26] MEDS ORDERED: DEXAMETHASONE 4 MG/ML VIAL ONE (06:36)
[2018-01-26] MEDS ORDERED: fentaNYL 100 MCG/2 ML INJ IVP PRN (07:49)
[2018-01-26] MEDS ORDERED: oxyCODONE IR 5 MG TAB PO PRN (07:49)
[2018-01-26] MEDS ORDERED: ACETAMINOPHEN 500 MG TAB PO PRN (07:49)
[2018-01-26] MEDS ORDERED: NALOXONE HCL 0.4 MG/ML INJ IVP PRN (07:49)
[2018-01-26] MEDS ORDERED: ONDANSETRON 4 MG/2 ML VIAL IVP PRN (07:49)
--- NOTE | 2018-01-26 07:55 | POSTANESTH ---
Post Anesthetic Evaluation Cardiovascular Status: Normal, Stable, Similar to Pre-Op Cond Respiratory Status: Normal, Stable, Similar to Pre-op Cond. Level of Consciousness/Mental Status: Can Participate in Eval, Alert and Oriented Pain Control: Adequate, Prn Tx Ordered Nausea/Vomiting Control: Adequate, Prn Tx Ordered Complications Possibly Related to Anesthesia: None Noted
[2018-01-26] MEDS ORDERED: LACTULOSE 20 GM/30 ML UDCUP PO PRN (08:13)
[2018-01-26] MEDS ORDERED: DIPHENOXYLATE/ATROPINE LOMOTIL 1 TAB PO PRN (08:13)
[2018-01-26] MEDS ORDERED: CYCLOBENZAPRINE 10 MG TAB PO PRN (08:13)
[2018-01-26] MEDS ORDERED: diphenhydrAMINE 25 MG CAP PO PRN (08:13)
[2018-01-26] MEDS ORDERED: MAGNESIUM HYDROXIDE 30 ML UDCUP PO PRN (08:13)
[2018-01-26] MEDS ORDERED: BISACODYL 10 MG SUPP PR PRN (08:13)
[2018-01-26] MEDS ORDERED: PROMETHAZINE HCL 25 MG/ML INJ IVP PRN (08:13)
[2018-01-26] MEDS ORDERED: METOCLOPRAMIDE 10 MG/2 ML VIAL IVP PRN (08:13)
[2018-01-26] MEDS ORDERED: POLYETHYLENE GLYCOL 3350 17 GM PKT PO PRN (08:13)
--- NOTE | 2018-01-26 08:13 | POSTOPPROG ---
Post Op Note Date of Operation: 01/26/18 Surgeon: Cody Elmore Community Support Professional: Co-surgeon Raudel Cho MD; Community Support Professional Philippe Vazquez CSA Anesthesiologist: Kailee OTT Anesthesia: GET(General Endotracheal) Pre-op Diagnosis: Left hip displaced femoral neck fracture Post-op Diagnosis: same Procedure: Left posterior approach CADENCE Inf/Abcess present in the surg proc area at time of surgery?: No EBL: 100-500 (200)
[2018-01-26] MEDS: oxyCODONE IR 5 MG TAB PO PRN ×2 (09:23→15:56)
[2018-01-26] MEDS: FLUTICASONE/SALMETER 250/50MCG DISKUS IH SCH ×2 (09:33→22:40)
[2018-01-26] MEDS: TIOTROPIUM INHALER 18 MCG/DOSE 5 DOSE/MDI IH SCH ×2 (09:33→16:21)
--- NOTE | 2018-01-26 09:34 | GOP ---
[f rep st] OPERATIVE REPORT DATE OF OPERATION: 01/26/2018 SURGEON: Cody Elmore MD CO-SURGEON: Raudel Cho MD DIRECTOR OF CATERING SALES: Philippe Vazquez CFA. Market Research Associate was required due to the complexity of the case and the patient's condition for positioning, prepping, draping, retraction, and closure. ANESTHESIA: General. PREOPERATIVE DIAGNOSIS: Left displaced femoral neck fracture. POSTOPERATIVE DIAGNOSIS: Left displaced femoral neck fracture. PROCEDURE PERFORMED: Left posterior approach total hip arthroplasty. SPECIMENS: None. ESTIMATED BLOOD LOSS: 200 cc. INDICATIONS: The patient had a mechanical fall, landing on her left hip, sustaining a displaced femoral neck fracture. We discussed in depth operative versus nonoperative treatments as well as options for operative treatments, including anterior versus posterior approach, cemented versus uncemented femoral component, and total versus hemiarthroplasty. Decision was made to proceed with a posterior approach for ease of access during cementation if needed. Preference would be for total hip arthroplasty; however, if hemodynamic status or the amount of blood thinning was a concern, we would proceed with hemiarthroplasty. The patient verbalized the understanding of the risks and benefits of the procedure, signed the informed consent prior to the procedure. DESCRIPTION OF PROCEDURE: The patient was seen in the holding area. Operative consent and site were signed. The patient was then taken to the operating room. After smooth induction of general anesthesia, she was placed in the lateral decubitus position with the affected hip facing up using a pegboard and axillary roll. The affected hip was prepped and draped in the usual sterile fashion. Operative site was confirmed by signature. Operative time-out performed. Allergies reviewed and antibiotics administered. Palpable landmarks including the greater trochanter were marked out. A longitudinal incision was made over the posterior aspect of the greater trochanter. This was carried through the subcutaneous tissue to identify the fascia abena, which was incised in line with the incision, and the gluteus meseret was bluntly split. Trochanteric bursa was taken down with Bovie electrocautery. The short external rotators were put on stretch, and the capsulotomy was taken in layers from the insertion on the femur and tagged with #2 FiberWires. Hematoma was evacuated. The femoral head was then removed. The neck cut was then freshened with an oscillating saw. Femur was then exposed in standard fashion. Excess soft tissue was removed from the piriformis fossa using Bovie, and excess neck was removed using the box osteotome. Sequential broaching was performed up to the desired size broach, which had good fit and fill. The trial stem was then left in place. The acetabulum was then exposed in standard fashion. The labrum was sharply excised. The ligamentum teres and acetabular fossa tissue excised with Bovie. Transverse acetabular ligament was identified and preserved. Sequential reaming was performed to the base of the acetabular fossa , sequentially reaming up to a 49 for a size 50 cup. The 49 trial was placed prior to final implantation of the 50 mm acetabular shell. Attention was then turned back to the femur. High in offset neck trials as well as 0 and -4 trial combinations were tried with checking stability, motion, and estimating leg length as much as possible. Final components were determined to be a size 6 stem, 132 degree neck angle with a -4 mm head. The final polyethylene insert with a 10 degree posterior lip liner was impacted into place after irrigating the acetabular shell. Final femoral components were then placed. Stability and motion were again confirmed. The capsule and external rotators were repaired through 2 drill holes in the greater trochanter. Soft tissues were infiltrated with a joint cocktail. Wound was then closed in layers with #2 PDS Quill suture in the fascia abena, 0 PDS Quill suture in the deep subcutaneous fat , and 3-0 Versalok suture in the dermis. Dermabond and Steri-Strips were applied. The hip was placed in a hip abduction pillow. The patient was then safely awakened, extubated, and taken to the recovery room in stable condition. All critical portions of the procedure were performed by myself, Dr. Elmore, this operative note was created by myself, Dr. Elmore, and I was immediately available for emergency cross-coverage at all times. DRAINS: None. COMPLICATIONS: None. IMPLANTS: Trident II 50 mm acetabular shell with a 32 mm polyethylene insert with 10 degree posterior lip liner. Femoral stem is Accolade II, size 6, 132 degree angle with a -4 mm cobalt chromium head. /[id number]/MODL MTDD
--- NOTE | 2018-01-26 09:49 | GCON ---
[f rep st] CONSULTATION HISTORY OF PRESENT ILLNESS: This is 72-year-old female, who comes in with a fall and hip fracture, and the need for emergent surgery. The patient was recently admitted to our hospital from 01/01 to 01/10. She came in with shortness of breath and in acute respiratory distress. Oxygen sat was in the 60s. Subsequent PEA and had return of spontaneous circulation. She received chest compression. Was noted to have dynamic ST-T changes in V2 to V4 and was taken to the sanitation laborer. Luminal irregularities were noted. However, a 70% block in the RCA was noted with a stent placed there, which was a drug-eluting stent. During her hospitalization, she had a COPD exacerbation, which improved. She was sent to rehab. There, she had a fall. PAST MEDICAL HISTORY: Respiratory arrest, coronary artery disease, status post recent drug-eluting stent, DVT, COPD, normal EF prior to discharge, AFib, which was situational in nature. MEDICATIONS: Aspirin, Plavix, and Eliquis, among others. ALLERGIES: None. SOCIAL HISTORY: From [place], [place]. 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 Visiting her daughters. , accompanied by . FAMILY HISTORY: Noncontributory. REVIEW OF SYSTEMS: A 10-point review of systems was negative other than above. PHYSICAL EXAMINATION: VITAL SIGNS: Blood pressure 176/86, heart rate 102, sinus rhythm, respiratory rate 16, sats 98%, afebrile. GENERAL: The patient is a pleasant female. Appears to be slightly uncomfortable. HEAD: Normocephalic, atraumatic. NECK: No thyromegaly. No JVD. No lymphadenopathy. CHEST: Good air entry bilaterally, equal. No rales, rhonchi , or rub. HEART: S1, S2 regular. No S3. No murmurs. ABDOMEN: Soft, nontender. No guarding or rigidity. Bowel sounds present. EXTREMITIES: No edema noted. Sensations intact. DIAGNOSTIC STUDIES: EKG reviewed. IMPRESSION AND PLAN: This is an unfortunate 72-year-old female, who has a hip fracture. This requires emergency surgery, within 2 weeks of a drug-eluting stent. At this point in time, because of the drug-eluting stent, aspirin and Plavix cannot be stopped because of the high risk (10%) of major cardiovascular events. Dual antiplatelets will need to be continued. However, Eliquis can be stopped at this point in time with relative safety. I have explained the details of this to the patient. She understands the high-risk nature of the procedure. From our perspective, she does not have any residual ischemia, and her ejection fraction is normal. No further investigation is needed. Thank you for letting us participate in this patient's care. /[id number]/MODL MTDD
[2018-01-26] MEDS ORDERED: NITROGLYCERIN 0.4 MG BTL SL PRN (10:00)
--- NOTE | 2018-01-26 10:48 | HOSPPROG ---
Hospitalist Progress Note Assessment/Plan: 72 yo F w recent stemi, new dx of copd, dvt and cardiac arrest pod zero s/p CADENCE after mechanical fall cad: continue aspirin plavix without cessation no CP ekg non ischemic (interp by me) hip fracture: s/w CADENCE dvt: on eliguis orthopedics has resarted full dose anticoag pain: well controlled copd: continue supplemental 02 continue tiotropium, advair, albuterol dispo: pending transfer to [facility] Subjective: family requesting transfer to [facility], working on that Objective: Vital Signs Temp Pulse Resp BP Pulse Ox 37 C 115 H 18 100/63 89 L 01/26/18 08:16 01/26/18 08:52 01/26/18 08:52 01/26/18 08:52 01/26/18 08:52 Laboratory Results 01/26/18 03:36 01/26/18 03:36 01/25/18 01/26/18 01/27/18 05:59 05:59 05:59 Intake Total 100 1500 Output Total 900 215 Balance -800 1285 - Physical Exam Constitutional: no apparent distress, appears nourished Eyes: PERRL, anicteric sclera Ears, Nose, Mouth, Throat: moist mucous membranes, hearing normal Cardiovascular: regular rate and rhythym, no murmur, rub, or gallop Respiratory: no respiratory distress, no rales or rhonchi Gastrointestinal: normoactive bowel sounds, soft, non-tender abdomen Genitourinary: no bladder fullness, penn in urethra Skin: warm, normal color Neurologic: AAOx3 Psychiatric: interacting appropriately Lymph, Heme, Immunologic: no cervical LAD ICD10 Worksheet Patient Problems: Problems Problem Status Onset Fracture of left hip Acute COPD (chronic obstructive pulmonary disease) Acute Cardiopulmonary arrest Acute Elevated troponin Acute Rib fracture Acute Sternal fracture Acute
--- NOTE | 2018-01-26 11:00 | PDMN ---
Medical Necessity Medical necessity: Pt meets IP criteria per MD; est los >2 mn for eval/tx of L hip fx r/t fall; admit for further monitoring, surgical intervention, pain management & therapies; hx recent cardiac arrest & DVT on AC, COPD, chronic respiratory failure, AFIB, CAD; per H&P & order 01/25/18
[2018-01-26] MEDS: CLOPIDOGREL BISULFATE 75 MG TAB PO SCH (11:06)
[2018-01-26] MEDS: SENNOSIDES/DOCUSATE SODIUM TAB PO SCH ×2 (11:07→11:09)
[2018-01-26] MEDS: ATORVASTATIN CALCIUM 10 MG TAB PO SCH (11:07)
[2018-01-26] MEDS: ASPIRIN EC 81 MG TAB PO SCH (11:08)
[2018-01-26] MEDS: CARVEDILOL 3.125 MG TAB PO SCH ×2 (12:42→18:33)
[2018-01-26] MEDS: ceFAZolin 2 GM/SWFI 2 GM/20 ML SYR IVP SCH ×2 (15:23→21:44)
[2018-01-26] MEDS: ACETAMINOPHEN 325 MG TAB PO PRN (15:53)
--- NOTE | 2018-01-26 16:19 | ASMTCASEMG ---
Living Arrangements What is your living Answers: With Spouse arrangement? Who do you live with? Type Of Residence What kind of residence do Answers: House you live in? Discharge Plan Comments Coordination Status Comments Notes: Pts case discussed in tx rounds. Pt is a 72 y/o female admitted for chest pain and a left posterior approach total hip arthroplasty. Pts daughter Yuli wanted pt to be transferred to [facility] in [place], [place] where pt and are from. Dr. Bhatti facilitated the doc to doc. [facility] states that they cannot accept pt at this time and would want surgeon at [facility] to follow pt until the end of hospitalization. CM met w/ pt and communicated the news to pt and . Subha at [facility] communicated this info to Yuli. Therapies have been ordered and awaiting recommendations. Needs are TBD at this time. CM to follow. Plan: TBD Date Signed: 01/26/2018 04:18 PM Electronically Signed By:PETER Miller
[2018-01-26] MEDS ORDERED: NS 1,000 ML IV ONE (18:36)
[2018-01-26] MEDS ORDERED: ceFAZolin 2 GM/SWFI 2 GM/20 ML SYR IVP SCH (20:30)
[2018-01-26] MEDS ORDERED: FAMOTIDINE 20 MG TAB PO SCH (21:00)
[2018-01-26] MEDS ORDERED: CLOPIDOGREL BISULFATE 75 MG TAB PO SCH (21:00)
[2018-01-27] MEDS: oxyCODONE IR 5 MG TAB PO PRN ×3 (00:56→18:18)
[2018-01-27] MEDS: ASPIRIN EC 81 MG TAB PO SCH (08:12)
[2018-01-27] MEDS: SENNOSIDES/DOCUSATE SODIUM TAB PO SCH ×3 (08:12→21:21)
[2018-01-27] MEDS: APIXABAN 5 MG TAB PO SCH ×2 (08:12→21:19)
[2018-01-27] MEDS: CARVEDILOL 3.125 MG TAB PO SCH ×2 (08:13→18:13)
[2018-01-27] MEDS: ATORVASTATIN CALCIUM 10 MG TAB PO SCH (08:13)
[2018-01-27] MEDS: CLOPIDOGREL BISULFATE 75 MG TAB PO SCH (08:13)
[2018-01-27] MEDS: FLUTICASONE/SALMETER 250/50MCG DISKUS IH SCH ×2 (08:14→23:05)
[2018-01-27] MEDS: TIOTROPIUM INHALER 18 MCG/DOSE 5 DOSE/MDI IH SCH (08:15)
--- NOTE | 2018-01-27 09:19 | HOSPPROG ---
Hospitalist Progress Note Assessment/Plan: 72 yo F w recent stemi, new dx of copd, dvt and cardiac arrest pod zero s/p CADENCE after mechanical fall cad: continue aspirin plavix without cessation no CP ekg non ischemic (interp by me) ABLA: transfuse 2 units now no hematoma hip fracture: s/w CADENCE dvt: on [facility] has restarted full dose anticoag pain: well controlled copd: continue supplemental 02 continue tiotropium, advair, albuterol dispo: refused at [facility] Subjective: case d/w dr fleming. tele: snius tach (interp by me) Objective: Vital Signs Temp Pulse Resp BP Pulse Ox 36.8 C 95 15 108/64 93 01/27/18 07:12 01/27/18 07:12 01/27/18 07:12 01/27/18 07:12 01/27/18 07:12 Laboratory Results 01/27/18 03:40 01/26/18 03:36 01/26/18 01/27/18 01/28/18 05:59 05:59 05:59 Intake Total 100 3850 Output Total 900 815 400 Balance -800 3035 -400 - Physical Exam Constitutional: no apparent distress, appears nourished Eyes: PERRL, anicteric sclera, EOMI Ears, Nose, Mouth, Throat: moist mucous membranes, hearing normal Cardiovascular: regular rate and rhythym, no murmur, rub, or gallop Respiratory: no respiratory distress, no rales or rhonchi Gastrointestinal: normoactive bowel sounds, soft, non-tender abdomen Genitourinary: No penn in urethra Skin: warm, normal color Musculoskeletal: full muscle strength, no muscle tenderness, other (no left hip hematoma) Neurologic: AAOx3, sensation intact bilaterally Psychiatric: interacting appropriately, not anxious Lymph, Heme, Immunologic: no cervical LAD ICD10 Worksheet Patient Problems: Problems Problem Status Onset Fracture of left hip Acute COPD (chronic obstructive pulmonary disease) Acute Cardiopulmonary arrest Acute Elevated troponin Acute Rib fracture Acute Sternal fracture Acute
--- NOTE | 2018-01-27 09:53 | SOAPPROG ---
SOAP Progress Note Assessment/Plan: Assessment: 72-year-old female postoperative day 1 status post left posterior approach total hip arthroplasty for displaced femoral neck fracture Plan: Weight bear as tolerated with PT OT and assistance Posterior hip precautions for 6 weeks Medical management per hospitalist service regarding recent cardiac arrest, COPD will Patient is being treated with Eliquis for recent DVT diagnosis. Okay to resume Eliquis. SCDs and Jose Carlos hose IS 10 times per hour Dispo: Pending medical clearance. Stable from an orthopedic standpoint. Conversation was had with the patient her regarding the travel back to their home in [facility]. I would prefer and recommend the patient not fly for approximately 1 month after surgery. I also recommended the patient delayed or travel back to [place] for 2 weeks and see me in the office. However, patient is very anxious to get home. Her 5 day tripped has already been 5 weeks. She understands that prolonged travel could increase her risk for additional DVT in the setting of a recent DVT and hip replacement surgery. She has agreed to break their travel increments into 1-2 hours with walking breaks in between. Patient is planning on having all of her follow-up care done at home in [facility] at the [facility]. I have given her my contact information as well as discharge instructions. I also recommend the patient undergo bone mineral density testing to treat osteopenia/osteoporosis and decrease the risk of future fragility fractures. She and her understand agree with the treatment plan questions answered 01/27/18 09:45 Subjective: No acute events. Pain well controlled. Denies fevers chills nausea vomiting chest pain numbness tingling. Baseline shortness of breath improved with oxygen. Objective: Vital Signs Temp Pulse Resp BP Pulse Ox 36.8 C 95 15 108/64 93 01/27/18 07:12 01/27/18 07:12 01/27/18 07:12 01/27/18 07:12 01/27/18 07:12 Laboratory Results 01/27/18 03:40 01/26/18 03:36 01/26/18 01/27/18 01/28/18 05:59 05:59 05:59 Intake Total 100 3850 Output Total 900 815 400 Balance -800 3035 -400 General: Awake alert oriented x3 no acute distress Easy nonlabored breathing Left hip: Dressing clean dry intact no erythema drainage or signs of infection Compartments soft compressible Minimal swelling and bruising Sensation intact to light touch from L3-S1 Motor intact to EHL FHL tibialis anterior gastrocsoleus Palpable DP PT pulses 2+ tenderness to palpation over the left calcaneal bursa/Achilles insertion - improved with elevation of the heel off the bed - Time Spent With Patient Time Spent With Patient: 25 ICD10 Worksheet Patient Problems: Problems Problem Status Onset Fracture of left hip Acute COPD (chronic obstructive pulmonary disease) Acute Cardiopulmonary arrest Acute Elevated troponin Acute Rib fracture Acute Sternal fracture Acute
--- NOTE | 2018-01-27 16:26 | ASMTCMCOM ---
CM Note CM Note Notes: 01/27/2018 Case Management Note Met w/pt and Bill [phone] to discuss dispo planning. Pt wants to return to [place]. Per Bill plan is for daughter to fly in from [place] to assist with drive. She can arrive in [place] in 3 days. They plan for stops every 90 minutes. Case Management suggested they map out hospitals along the way through [place] and [place] in case needed. Therapies suggested inpatient rehab to pt. Left for Jeimy. [facility]. Case Management d/c poc: return to SNF rehab for 3 days and then family plans to drive to [place]. Case Management to follow. Date Signed: 01/27/2018 03:58 PM Electronically Signed By:Karla Clemente RN
[2018-01-28] MEDS: POLYETHYLENE GLYCOL 3350 17 GM PKT PO SCH (08:23)
[2018-01-28] MEDS: APIXABAN 5 MG TAB PO SCH ×2 (08:23→20:24)
[2018-01-28] MEDS: SENNOSIDES/DOCUSATE SODIUM TAB PO SCH ×2 (08:23→20:23)
[2018-01-28] MEDS: ASPIRIN EC 81 MG TAB PO SCH (08:23)
[2018-01-28] MEDS: CARVEDILOL 3.125 MG TAB PO SCH ×2 (08:23→17:25)
[2018-01-28] MEDS: ATORVASTATIN CALCIUM 10 MG TAB PO SCH (08:23)
[2018-01-28] MEDS: CLOPIDOGREL BISULFATE 75 MG TAB PO SCH (08:23)
[2018-01-28] MEDS: oxyCODONE IR 5 MG TAB PO PRN (09:26)
--- NOTE | 2018-01-28 09:46 | HOSPPROG ---
Hospitalist Progress Note Assessment/Plan: 72-year-old woman visiting from [place] was admitted in late December for shortness of breath and eventual PEA arrest. She was found to have acute coronary syndrome and had a stent placed during that hospitalization and eventually discharged to [facility] for rehab. She was discharged home from rehab the day prior to admission where she fell sustaining a hip fracture # hip fracture status post posterior approach total hip arthroplasty * Will return to rehab in the next day or 2 # coronary artery disease continue on Plavix and aspirin without cessation given recent drug-eluting stent placement # acute blood loss anemia secondary to recent hip surgery complicated by need for ongoing anti-platelet therapy as well as a history of DVT and anticoagulation * Status post 2 units packed red blood cells with improvement in her hemoglobin * Monitor an additional night to make sure she has stabilized given the anticoagulants and antiplatelet therapy she is on # history of DVT on Eliquis currently on full-dose anticoagulation # pain, currently controlled # COPD, requiring supplemental oxygen at 3 liters/minute. She was not on oxygen in [place] * Continue Advair, Spiriva and albuterol as needed * Check chest x-ray today given ongoing respiratory distress and history of COPD # DVT prophylaxis, currently on Eliquis full-dose Subjective: Patient new to ct and chart reviewed. Wants to work hard on her physical therapy and hopes to go to rehab soon and eventual return to [place] no chest pain. Breathing feels a little more labored than at baseline but stable overall Objective: Vital Signs Temp Pulse Resp BP Pulse Ox 36.7 C 92 20 156/80 H 97 01/28/18 03:27 01/28/18 03:27 01/28/18 03:27 01/28/18 03:27 01/28/18 03:27 Laboratory Results 01/28/18 04:20 01/26/18 03:36 01/27/18 01/28/18 01/29/18 05:59 05:59 05:59 Intake Total 3850 1400 Output Total 815 1750 Balance 3035 -350 - Physical Exam Constitutional: uncomfortable Eyes: PERRL, EOMI Ears, Nose, Mouth, Throat: moist mucous membranes Cardiovascular: regular rate and rhythym Respiratory: no rales or rhonchi, reduced air movement (Throughout), respiratory distress (Mild) Gastrointestinal: normoactive bowel sounds, soft, non-tender abdomen Genitourinary: no bladder fullness Skin: warm Musculoskeletal: pain with ROM (Hip), generalized weakness Neurologic: AAOx3 Psychiatric: interacting appropriately, not anxious ICD10 Worksheet Patient Problems: Problems Problem Status Onset Cardiopulmonary arrest Acute Elevated troponin Acute Rib fracture Acute Sternal fracture Acute COPD (chronic obstructive pulmonary disease) Acute Fracture of left hip Acute
--- NOTE | 2018-01-28 11:00 | SOAPPROG ---
SOAP Progress Note Assessment/Plan: Assessment: 72-year-old female postoperative day 2 status post left posterior approach total hip arthroplasty for displaced femoral neck fracture Plan: Weight bear as tolerated with PT OT and assistance Posterior hip precautions for 6 weeks Medical management per hospitalist service regarding recent cardiac arrest, COPD will Patient is being treated with Eliquis for recent DVT diagnosis. Okay to resume Eliquis. Acute postoperative anemia: adequate response to PRBCs. Monitoring SCDs and Jose Carlos hose IS 10 times per hour Dispo: Pending medical clearance. Stable from an orthopedic standpoint. Plan for transfer to [facility] tomorrow possibly until the end of the week Conversation was had with the patient her regarding the travel back to their home in [facility]. I would prefer and recommend the patient not fly for approximately 1 month after surgery. I also recommended the patient delayed or travel back to [place] for 2 weeks and see me in the office. However, patient is very anxious to get home. Her 5 day tripped has already been 5 weeks. She understands that prolonged travel could increase her risk for additional DVT in the setting of a recent DVT and hip replacement surgery. She has agreed to break their travel increments into 1-2 hours with walking breaks in between. Patient is planning on having all of her follow-up care done at home in [facility] at the [facility]. I have given her my contact information as well as discharge instructions. I also recommend the patient undergo bone mineral density testing to treat osteopenia/osteoporosis and decrease the risk of future fragility fractures. She and her understand agree with the treatment plan questions answered 01/27/18 09:45 01/28/18 10:54 Subjective: No acute events. Pain well controlled. Denies f/c/cp/n/v/numbness/tingling. Ambulating well with PT and walker. Heel pain resolved. Objective: Vital Signs Temp Pulse Resp BP Pulse Ox 36.9 C 86 16 129/66 H 96 01/28/18 09:56 01/28/18 09:56 01/28/18 09:56 01/28/18 09:56 01/28/18 09:56 Laboratory Results 01/28/18 04:20 01/26/18 03:36 01/27/18 01/28/18 01/29/18 05:59 05:59 05:59 Intake Total 3850 1400 240 Output Total 815 1750 775 Balance 0299 -575 -558 General: Awake alert oriented x3 no acute distress Easy nonlabored breathing Left hip: Dressing clean dry intact no erythema drainage or signs of infection Compartments soft compressible Minimal swelling and bruising Sensation intact to light touch from L3-S1 Motor intact to EHL FHL tibialis anterior gastrocsoleus Palpable DP PT pulses Non TTP over posterior calcaneus - Time Spent With Patient Time Spent With Patient: 20 ICD10 Worksheet Patient Problems: Problems Problem Status Onset Fracture of left hip Acute COPD (chronic obstructive pulmonary disease) Acute Cardiopulmonary arrest Acute Elevated troponin Acute Rib fracture Acute Sternal fracture Acute
[2018-01-28] MEDS: TIOTROPIUM INHALER 18 MCG/DOSE 5 DOSE/MDI IH SCH (11:13)
[2018-01-28] MEDS: FLUTICASONE/SALMETER 250/50MCG DISKUS IH SCH ×2 (11:13→21:50)
[2018-01-29 04:15] LABS: PLATELET COUNT 202 10^3/uL (150-400)
[2018-01-29] MEDS: TIOTROPIUM INHALER 18 MCG/DOSE 5 DOSE/MDI IH SCH (08:22)
[2018-01-29] MEDS: FLUTICASONE/SALMETER 250/50MCG DISKUS IH SCH ×2 (08:22→20:56)
[2018-01-29] MEDS: CARVEDILOL 3.125 MG TAB PO SCH ×2 (08:44→18:44)
[2018-01-29] MEDS: CLOPIDOGREL BISULFATE 75 MG TAB PO SCH (08:44)
[2018-01-29] MEDS: POLYETHYLENE GLYCOL 3350 17 GM PKT PO SCH (08:44)
[2018-01-29] MEDS: ASPIRIN EC 81 MG TAB PO SCH (08:44)
[2018-01-29] MEDS: ATORVASTATIN CALCIUM 10 MG TAB PO SCH (08:45)
[2018-01-29] MEDS: APIXABAN 5 MG TAB PO SCH ×2 (08:45→20:37)
[2018-01-29] MEDS: SENNOSIDES/DOCUSATE SODIUM TAB PO SCH ×2 (08:53→20:38)
[2018-01-29] MEDS ORDERED: FUROSEMIDE 40 MG/4 ML VIAL IVP ONE (12:07)
[2018-01-29] MEDS ORDERED: POTASSIUM CL 20 MEQ TAB PO ONE (12:08)
--- NOTE | 2018-01-29 16:33 | ASMTCMCOM ---
CM Note CM Note Notes: 01/29/2018 Case Management Note Phone call from Reina Sol [phone] social research assistant from [place] offering assistance with placement at a SNF in [place]. Informed Reina of current d/c plan to [facility] with flight home. When pt is d/c from [facility] call [phone] and ask for the social research assistant direct office for assistance with home health or other d/c needs in [place]. Date Signed: 01/29/2018 04:32 PM Electronically Signed By:Karla Clemente RN
[2018-01-30] MEDS: ACETAMINOPHEN 325 MG TAB PO PRN (00:41)
[2018-01-30 07:23] VITALS: BP 155/79
[2018-01-30] MEDS: TIOTROPIUM INHALER 18 MCG/DOSE 5 DOSE/MDI IH SCH (09:23)
[2018-01-30] MEDS: FLUTICASONE/SALMETER 250/50MCG DISKUS IH SCH (09:23)
[2018-01-30] MEDS ORDERED: FUROSEMIDE 20 MG TAB PO SCH (09:45)
--- NOTE | 2018-01-30 09:49 | HOSPPROG ---
Hospitalist Progress Note Assessment/Plan: 72-year-old woman visiting from [place] was admitted in late December for shortness of breath and eventual PEA arrest. She was found to have acute coronary syndrome and had a stent placed during that hospitalization and eventually discharged to [facility] for rehab. She was discharged home from rehab the day prior to admission where she fell sustaining a hip fracture # hip fracture status post posterior approach total hip arthroplasty * Will return to rehab in the next day or 2 # coronary artery disease continue on Plavix and aspirin without cessation given recent drug-eluting stent placement # acute blood loss anemia secondary to recent hip surgery complicated by need for ongoing anti-platelet therapy as well as a history of DVT and anticoagulation * Status post 2 units packed red blood cells with improvement in her hemoglobin * Monitor an additional night to make sure she has stabilized given the anticoagulants and antiplatelet therapy she is on # history of DVT on Eliquis currently on full-dose anticoagulation * risk of clot low on Eliquis, would prefer her to fly home. # pain, currently controlled # COPD, requiring supplemental oxygen at 3 liters/minute. She was not on oxygen in [place] * Continue Advair, Spiriva and albuterol as needed * Check chest x-ray which showed pulmonary edema, likely from PRBCs, diuresed well with IV lasix. will continue PO at rehab for a day. # DVT prophylaxis, currently on Eliquis full-dose Subjective: feels better, breathin seems a bit better. Objective: Vital Signs Temp Pulse Resp BP Pulse Ox 36.5 C 78 19 155/79 H 99 01/30/18 07:22 01/30/18 09:24 01/30/18 09:24 01/30/18 07:22 01/30/18 09:24 Laboratory Results 01/29/18 03:26 01/30/18 03:28 01/29/18 01/30/18 01/31/18 05:59 05:59 05:59 Intake Total 2090 1050 Output Total 2200 2920 200 Balance -110 -1870 -200 ICD10 Worksheet Patient Problems: Problems Problem Status Onset Cardiopulmonary arrest Acute Elevated troponin Acute Rib fracture Acute Sternal fracture Acute COPD (chronic obstructive pulmonary disease) Acute Fracture of left hip Acute
--- NOTE | 2018-01-30 10:00 | PDIAF ---
- Diagnosis Diagnosis: hip fracture, copd, anemia, recent stent-CAD Code Status: Full Code - Medication Management Discharge Medications: Medications to Continue on Transfer Albuterol [Ventolin Hfa Inhaler] 1 - 2 puffs IH Q4H PRN 12/31/17 [Last Taken Unknown] Tiotropium Inhaler [Spiriva Inhaler (RX)] 5 inh IH DAILY 01/01/18 [Last Taken Unknown] Aspirin EC [Aspirin EC 81 mg (*)] 81 mg PO DAILY #100 tab 01/07/18 [Last Taken Unknown] Atorvastatin Calcium [Lipitor 10 mg (*)] 10 mg PO DAILY #30 tab 01/07/18 [Last Taken Unknown] Carvedilol [Coreg (*)] 3.125 mg PO BIDMEAL #60 tab 01/07/18 [Last Taken Unknown] Clopidogrel Bisulfate [Plavix (*)] 75 mg PO HS #30 tab 01/07/18 [Last Taken Unknown] Apixaban [Eliquis] 5 mg PO BID 01/25/18 [Last Taken Unknown] Fluticasone/Salmeter 250/50Mcg [Advair 250/50 (*)] 1 puffs IH BID 01/25/18 [ Last Taken Unknown] Lisinopril [Zestril 5 mg (*)] 5 mg PO DAILY 01/25/18 [Last Taken Unknown] Nitroglycerin [Nitrostat 0.4 mg (*)] 0.4 mg SL Q5M 01/25/18 [Last Taken Unknown] Acetaminophen [Tylenol 325mg (*)] 650 mg PO Q4HRS PRN tab 01/30/18 [Last Taken Unknown] Furosemide [Lasix 20 MG (*)] 20 mg PO DAILY tab 01/30/18 [Last Taken Unknown] Polyethylene Glycol 3350 [Miralax 17 gm (*)] 17 gm PO DAILY pkt 01/30/18 [Last Taken Unknown] Sennosides/Docusate Sodium [Senokot-S] 1 - 2 tab PO BID tab 01/30/18 [Last Taken Unknown] oxyCODONE IR [Oxycodone Ir (*)] 5 - 10 mg PO Q3HRS PRN tab 01/30/18 [Last Taken Unknown] Discharge Medications: Refer to the Discharge Home Medication list for PRN reason. - Orders Services needed: Registered Nurse, Certified Enterprise Analyst, Master Sal[employer] Gill[employer] Vessel Operator , Physical Therapy, Occupational Therapy Diet Recommendation: cardiac -low fat low salt Diet Texture: Regular Texture Diet Additional Instructions: see handout WBAT posterior hip precautions x6wks continue Eliquis for 4wks for recent CADENCE. Longer if determined necessary for previous DVT - Follow Up Care Current Providers and Referrals: NONE *PRIMARY CARE P,. [Primary Care Provider] - As per Instructions
--- NOTE | 2018-01-30 10:38 | GDS ---
[f rep st] DISCHARGE SUMMARY DIAGNOSES: 1. Left displaced femoral neck fracture, status post left posterior approach total hip arthroplasty. 2. Acute blood loss anemia, status post 2 units of packed red blood cells. 3. Coronary artery disease, recent stent, on Plavix and aspirin. 4. History of deep vein thrombosis, currently on Eliquis for anticoagulation. 5. Chronic obstructive pulmonary disease. CONSULTATIONS: Dr. Cody Elmore, orthopedics. HOSPITAL COURSE: The patient is a 72-year-old recently admitted to the hospital for ACS, status post stent placement in December. She is on antiplatelet therapy. She was readmitted after a fall sustaini ng a femoral neck fracture. She underwent surgery. The surgery was complicated by postoperative ble eding due to her antiplatelet therapy for her recent stent. She was transfused with 2 units of packe d red blood cells and has remained stable after transfusion. She also has a history of a DVT and is on Eliquis for anticoagulation. She does have some mild respiratory failure and is on oxygen. This has been going on since her last admission. Chest x-ray here revealed mild fluid overload and she wa s diuresed with Lasix. I will continue that for 2 more days, today and tomorrow, in the long term . She will likely need oxygen until she returns to [place]. CONDITION ON DISCHARGE: Good. Vital signs have been stable. Blood pressure 150/79, heart rate 75, she is 99% on 4 L and afebrile. She is alert and oriented. Lungs have diminished breath sounds thro ughout. No significant edema. DISCHARGE MEDICATIONS: Please see discharge medication form. FOLLOWUP: She will be discharged for [facility] home rehab. Total time spent with patient for discharge and coordination of care was 35 minutes. /[id number]/MODL
[2018-01-30] MEDS: ATORVASTATIN CALCIUM 10 MG TAB PO SCH (10:39)
[2018-01-30] MEDS: CLOPIDOGREL BISULFATE 75 MG TAB PO SCH (10:39)
[2018-01-30] MEDS: ASPIRIN EC 81 MG TAB PO SCH (10:40)
[2018-01-30] MEDS: SENNOSIDES/DOCUSATE SODIUM TAB PO SCH (10:40)
[2018-01-30] MEDS: APIXABAN 5 MG TAB PO SCH (10:40)
[2018-01-30] MEDS: CARVEDILOL 3.125 MG TAB PO SCH (10:45)
[2018-01-30] MEDS: POLYETHYLENE GLYCOL 3350 17 GM PKT PO SCH (10:45)
--- NOTE | 2018-01-30 17:15 | ASMTLACE ---
LACE Length of stay for Answers: 4-6 days current admission Acuity / Level of Answers: Yes Care: Did the patient have an inpatient admission? Comorbidities - select Answers: Chronic pulmonary disease all that apply Coronary Artery Disease Other Notes: HTN # of Emergency department Answers: 1-2 visits in the last 6 months Score: 13 Date Signed: 01/30/2018 10:52 AM Electronically Signed By:Karla Clemente RN
--- NOTE | 2018-01-31 13:42 | ASDISCHSUM ---
Discharge Information Plan Status:SNF Medically Cleared to Leave:01/30/2018 Discharge Date:01/30/2018 CM D/C Disposition:[facility] Facility ADT D/C Disposition:[facility] Facility Projected Discharge Date:01/28/2018 11:00 AM Transportation at D/C:Wheelchair Van Discharge Delay Reason: Follow-Up Date:01/28/2018 11:00 AM Discharge Slot: Final Diagnosis: Placement Information Referral Type:*Residential/SNF Referral ID:[id number] Provider Name:[facility] Address 1:[address] Address 2: City:[place] Selection Factors: State:[place] Patient Contact Information Contact Name:JONE Relationship:Daughter Address: Work Phone: City: [facility] Phone: [facility] Code: Email: Financial Information Financial Class:Medicare Primary Plan Desc:MEDICARE INPATIENT Primary Plan Number:[id number] Secondary Plan Desc:[facility] [employer] Secondary Plan Number:[id number] Assessment Information LACE LACE Length of stay for Answers: 4-6 days current admission Acuity / Level of Answers: Yes Care: Did the patient have an inpatient admission? Comorbidities - select Answers: Chronic pulmonary disease all that apply Coronary Artery Disease Other Notes: HTN # of Emergency department Answers: 1-2 visits in the last 6 months Score: 13 Date Signed: 01/30/2018 10:52 AM Electronically Signed By:Karla Clemente RN [facility] Initial CM Assessment Living Arrangements What is your living Answers: With Spouse arrangement? Who do you live with? Type Of Residence What kind of residence do Answers: House you live in? Discharge Plan Comments Coordination Status Comments Notes: Pts case discussed in tx rounds. Pt is a 72 y/o female admitted for chest pain and a left posterior approach total hip arthroplasty. Pts daughter Yuli wanted pt to be transferred to [facility] in [place], [place] where pt and are from. Dr. Bhatti facilitated the doc to doc. [facility] states that they cannot accept pt at this time and would want surgeon at [facility] to follow pt until the end of hospitalization. CM met w/ pt and communicated the news to pt and . Subha at [facility] communicated this info to Yuli. Therapies have been ordered and awaiting recommendations. Needs are TBD at this time. CM to follow. Plan: TBD Date Signed: 01/26/2018 04:18 PM Electronically Signed By:PETER Miller [facility] CM Progress Note CM Note CM Note Notes: 01/27/2018 Case Management Note Met w/pt and Dash [phone] to discuss dispo planning. Pt wants to return to [place]. Per Dash plan is for daughter to fly in from [place] to assist with drive. She can arrive in [place] in 3 days. They plan for stops every 90 minutes. Case Management suggested they map out hospitals along the way through [place] and [place] in case needed. Therapies suggested inpatient rehab to pt. Left VM for Jeimy. Faxed referral to [facility]. Case Management d/c poc: return to SNF rehab for 3 days and then family plans to drive to [place]. Case Management to follow. Date Signed: 01/27/2018 03:58 PM Electronically Signed By:Karla Clemente RN [facility] CM Progress Note CM Note CM Note Notes: 01/29/2018 Case Management Note Phone call from Reina Sol [phone] older adult social work specialist from [place] offering assistance with placement at a SNF in [place]. Informed Reina of current d/c plan to [facility] with flight home. When pt is d/c from [facility] call [phone] and ask for the older adult social work specialist direct office for assistance with home health or other d/c needs in [place]. Date Signed: 01/29/2018 04:32 PM Electronically Signed By:Karla Clemente RN Case Management Discharge Plan Note Case Management Discharge Discharge Order Complete? Answers: Yes Patient to Obtain Answers: Other Notes: [facility] Medications Transportation Arranged Answers: Other Notes: [facility] Transport will Pick (Date 01/30/2018 12:00 PM & Time) Faxed Final Orders Answers: Yes Agency/Facility Transfer Answers: Yes Report Printed & Faxed to Receiving Agency Family Notified Answers: Yes Notes: in room Discharge Comments Notes: 01/30/2018 Case Management Note Pt to d/c to [facility]. [facility] arranged transport. Faxed final orders. RN to call report. Family in room. Date Signed: 01/30/2018 10:54 AM Electronically Signed By:Karla Clemente RN Intervention Information Intervention Type:*IM-Signed Date of Service:01/30/2018 10:17 AM Patient Type:Inpatient Staff Member:Edwina García Hours: Discipline: Severity: Comment:
== END 2018-01-30 12:17 | DRG 469 ==
LOC: OBSVTOIN 17:23 → F2W 20:34
PROVIDERS: ADMIT Student in an Organized Health Care Education/Training Program; ATTEND Student in an Organized Health Care Education/Training Program
PROC: 30233N1 Transfusion of Nonautologous Red Blood Cells into Peripheral Vein, Percutaneous Approach (ICD-10-PCS; principal; 2018-01-26 05:30)
PROC: 0SRB02Z Replacement of Left Hip Joint with Metal on Polyethylene Synthetic Substitute, Open Approach (ICD-10-PCS; principal; 2018-01-26 05:30)
DX: S72.142A Displaced intertrochanteric fracture of left femur, initial encounter for closed fracture (principal); W10.9XXA Fall (on) (from) unspecified stairs and steps, initial encounter; D62 Acute posthemorrhagic anemia; I25.10 Atherosclerotic heart disease of native coronary artery without angina pectoris; I21.3 ST elevation (STEMI) myocardial infarction of unspecified site; J44.9 Chronic obstructive pulmonary disease, unspecified; J96.10 Chronic respiratory failure, unspecified whether with hypoxia or hypercapnia; Z86.718 Personal history of other venous thrombosis and embolism; Z87.891 Personal history of nicotine dependence; Z95.5 Presence of coronary angioplasty implant and graft
CPT/HCPCS: 96374; 97110-GP; 97116-GP; 97161-GP; 97166-GO; 97530-GP; 97535-GO; G8978-GP-CJ; G8979-GP-CI; G8987-GO-CK; G8988-GO-CI; J0171; J0690; J1100; J1170; J1885; J1940; J2001; J2405; J2704; J2795; J3010; J3360; J3370; P9016